=== PATIENT | female | born 1960 | race Caucasian/White ===

== ENCOUNTER 2022-05-25 10:52 | Outpatient (CLI) | payer MEDICARE, MEDICAID, SELFPAY ==
--- NOTE | 2022-06-11 10:25 | URNOTE ---
Request received for authorization for [employer] ([id number]). Prior authorization is not required as services are based on medical necessity and follow Medicare guidelines.
== END 2022-05-25 10:53 | disposition home or self-care (01) ==
LOC: AMB 05-26 00:38
PROVIDERS: PCP Family Medicine; Visit Provider Family Medicine
DX: R53.1 Weakness (principal)
CPT/HCPCS: A0998

== ENCOUNTER 2022-11-06 11:15 | Outpatient (RCR) | payer MEDICARE, MEDICAID, SELFPAY | END 2023-03-06 23:59 | disposition home or self-care (01) | PROVIDERS: PCP Family Medicine; Visit Provider Psychiatry & Neurology Neurology | DX: R26.89 Other abnormalities of gait and mobility (principal); M33.90 Dermatopolymyositis, unspecified, organ involvement unspecified; R53.1 Weakness; Z51.89 Encounter for other specified aftercare | CPT/HCPCS: 97110; 97162 ==

== ENCOUNTER 2022-12-10 11:30 | Outpatient (RCR) | payer MEDICARE, MEDICAID, SELFPAY ==
--- NOTE | 2022-06-11 12:23 | URNOTE ---
Received request for prior auth for [employer] ([id number]). Pt has Medicare primary. Prior authorization is not required as services are based on medical necessity and follow medicare guidelines.
[2022-06-25 10:25] VITALS: BP 137/81; PULSE 95; RESP 16; TEMP 36.6; O2SAT 99
[2022-06-25] MEDS: diphenhydrAMINE 25 MG CAPSULE PO (10:55)
[2022-06-25 13:50] VITALS: BP 148/75; PULSE 88; RESP 20; TEMP 37.2; O2SAT 99
[2022-06-26 10:19] VITALS: BP 153/84; PULSE 90; RESP 18; TEMP 37.3; O2SAT 99
[2022-06-26] MEDS: ACETAMINOPHEN 325 MG TABLET 650 MG PO (11:01)
[2022-06-26] MEDS: diphenhydrAMINE 25 MG CAPSULE PO (11:01)
[2022-06-26] MEDS: 5 % DEXTROSE 250 ML IV (11:01)
[2022-07-22 10:27] VITALS: BP 151/79; PULSE 86; RESP 16; TEMP 37.2; O2SAT 99
[2022-07-22] MEDS: ACETAMINOPHEN 325 MG TABLET 650 MG PO (10:40)
[2022-07-22] MEDS: diphenhydrAMINE 25 MG CAPSULE PO (10:40)
[2022-07-22] MEDS: 5 % DEXTROSE 250 ML IV (10:55)
[2022-07-23 11:07] VITALS: BP 157/83; PULSE 84; RESP 18; TEMP 36.5; O2SAT 99
[2022-07-23] MEDS: ACETAMINOPHEN 325 MG TABLET 650 MG PO (11:20)
[2022-07-23] MEDS: diphenhydrAMINE 25 MG CAPSULE PO (11:20)
[2022-07-23] MEDS: 5 % DEXTROSE 250 ML IV (11:23)
[2022-08-20 11:20] VITALS: BP 152/89; PULSE 85; RESP 16; TEMP 37.3; O2SAT 98
[2022-08-20] MEDS: diphenhydrAMINE 25 MG CAPSULE PO (11:45)
[2022-08-20] MEDS: ACETAMINOPHEN 325 MG TABLET 650 MG PO (11:45)
[2022-08-20] MEDS: 5 % DEXTROSE 250 ML IV (12:38)
[2022-08-21] MEDS: ACETAMINOPHEN 325 MG TABLET 650 MG PO (11:12)
[2022-08-21] MEDS: diphenhydrAMINE 25 MG CAPSULE PO (11:12)
[2022-08-21 11:30] VITALS: BP 142/81; PULSE 93; RESP 16; TEMP 37.1; O2SAT 97
[2022-09-16 11:01] VITALS: BP 161/92; PULSE 84; RESP 16; TEMP 36.6; O2SAT 97
[2022-09-16] MEDS: ACETAMINOPHEN 325 MG TABLET 650 MG PO (11:03)
[2022-09-16] MEDS: diphenhydrAMINE 25 MG CAPSULE PO (11:03)
[2022-09-16] MEDS: 5 % DEXTROSE 250 ML IV (11:03)
--- NOTE | 2022-09-16 12:55 | ONC.NURNOTE ---
After tylenol/benadryl and IV start, patient became nauseated. Denies fever, chills, diarrhea. Ate some saltine crackers and sprite and it resolved prior to the start of IVIG. Patient stated I ate at [employer] last night, i wonder if that had anything to do with it. Continue to monitor.
[2022-09-17 11:03] VITALS: BP 171/89; PULSE 90; RESP 18; TEMP 37.1; O2SAT 97
[2022-09-17] MEDS: ACETAMINOPHEN 325 MG TABLET 650 MG PO (11:15)
[2022-09-17] MEDS: diphenhydrAMINE 25 MG CAPSULE PO (11:16)
--- NOTE | 2022-09-17 13:17 | PC.NURSE ---
Pt present at [facility] for IVIG treatment. RN noted pt's consistently high blood pressure readings. Shala monitors closely at home with the support of her [facility] nurse and PCP. Per pt's request, all BP readings from yesterday and today were jotted down for her to review with her county RN. RN also requested that Shala discuss her blood pressure readings wtih Dr. Zamudio (prescribing MD) when she sees her later this month in follow-up. RN requested treatment parameters as it relates to her blood pressure. Shala verbalized understanding and will have MD fax a written BP treatment parameter to [facility] for her next treatment in October.
--- NOTE | 2022-09-22 14:19 | PC.NURSE ---
Shala called today with an update on her blood pressure management. She spoke with her dressmaking teacher (Dr. Zamudio, ordering MD) who stated that she suggested Shala take her BP meds later in the morning, closer to the time of her infusion. She also suggested that Shala see her PCP to discuss her medication management. Shala will see her PCP on Thursday and will see Dr. Zamudio on 10/01/2022. RN asked Shala to have one or both MD's fax recommendations and treatment guidelines/parameters to [facility] in time for her next infusion. Per Shala, Dr. Zamudio wants her to continue getting IVIG infusions.
[2022-10-14 11:17] VITALS: BP 138/78; PULSE 94; RESP 16; TEMP 37.6; O2SAT 97
[2022-10-14] MEDS: ACETAMINOPHEN 325 MG TABLET 650 MG PO (11:24)
[2022-10-14] MEDS: diphenhydrAMINE 25 MG CAPSULE PO (11:24)
[2022-10-15 11:18] VITALS: BP 135/81; PULSE 96; RESP 16; TEMP 36.3; O2SAT 96
[2022-10-15] MEDS: diphenhydrAMINE 25 MG CAPSULE PO (11:32)
[2022-10-15] MEDS: ACETAMINOPHEN 325 MG TABLET 650 MG PO (11:32)
[2022-11-13 12:14] VITALS: BP 152/82; PULSE 91; RESP 16; TEMP 37.2; O2SAT 97
[2022-11-13] MEDS: ACETAMINOPHEN 325 MG TABLET 650 MG PO (12:31)
[2022-11-13] MEDS: diphenhydrAMINE 25 MG CAPSULE PO (12:31)
[2022-11-13] MEDS: 5 % DEXTROSE 250 ML IV (15:58)
[2022-11-14 12:05] VITALS: BP 122/76; PULSE 88; RESP 16; TEMP 37.6; O2SAT 98
[2022-11-14] MEDS: diphenhydrAMINE 25 MG CAPSULE PO (12:15)
[2022-11-14] MEDS: ACETAMINOPHEN 325 MG TABLET 650 MG PO (12:15)
[2022-12-09] MEDS: ACETAMINOPHEN 325 MG TABLET 650 MG PO (12:14)
[2022-12-09] MEDS: diphenhydrAMINE 25 MG CAPSULE PO (12:14)
[2022-12-09 12:16] VITALS: BP 137/76; PULSE 99; RESP 16; TEMP 37; O2SAT 95
[2022-12-10 12:01] VITALS: BP 127/76; PULSE 94; RESP 16; TEMP 36.7; O2SAT 97
[2022-12-10] MEDS: 5 % DEXTROSE 250 ML IV (12:06)
[2022-12-10] MEDS: ACETAMINOPHEN 325 MG TABLET 650 MG PO (12:06)
[2022-12-10] MEDS: diphenhydrAMINE 25 MG CAPSULE PO (12:06)
== END 2022-12-22 23:59 | disposition home or self-care (01) ==
LOC: CCIC 11:30
PROVIDERS: PCP Family Medicine; Referring Provider Family Medicine; Visit Provider Clinical Nurse Specialist
DX: M33.90 Dermatopolymyositis, unspecified, organ involvement unspecified (principal)
CPT/HCPCS: 96365; 96366; 96413; 96415; A9270; J1569; J7050

== ENCOUNTER 2023-07-01 11:00 | Outpatient (RCR) | payer MEDICARE, MEDICAID, SELFPAY ==
[2023-01-06] MEDS: diphenhydrAMINE 25 MG CAPSULE PO (11:13)
[2023-01-06] MEDS: ACETAMINOPHEN 325 MG TABLET 650 MG PO (11:13)
[2023-01-06 11:30] VITALS: BP 133/80; PULSE 86; RESP 16; TEMP 36.1; O2SAT 96
[2023-01-06] MEDS: 5 % DEXTROSE 250 ML IV (12:11)
[2023-01-06] MEDS: SODIUM CHLORIDE 0.9 % (FLUSH) 10 ML SYRINGE IVF (12:11)
[2023-01-06 15:55] VITALS: BP 112/81; PULSE 57
[2023-01-07 11:00] VITALS: BP 134/80; PULSE 86; RESP 18; TEMP 36.1; O2SAT 98
[2023-02-02 10:55] VITALS: BP 150/81; PULSE 91; RESP 16; TEMP 37.6; O2SAT 97
[2023-02-02] MEDS: 5 % DEXTROSE 250 ML IV (12:00)
[2023-02-02] MEDS: SODIUM CHLORIDE 0.9 % (FLUSH) 10 ML SYRINGE IVF (14:00)
[2023-02-02] MEDS: ACETAMINOPHEN 325 MG TABLET 650 MG PO (15:43)
[2023-02-02] MEDS: diphenhydrAMINE 25 MG CAPSULE PO (15:44)
[2023-02-03 11:04] VITALS: BP 152/79; PULSE 78; RESP 16; TEMP 37.1; O2SAT 98
[2023-02-03] MEDS: ACETAMINOPHEN 325 MG TABLET 650 MG PO (11:12)
[2023-02-03] MEDS: diphenhydrAMINE 25 MG CAPSULE PO (11:13)
[2023-02-03 11:44] VITALS: BP 102/71; PULSE 70; RESP 14; TEMP 36.7; O2SAT 97
[2023-02-03] MEDS: 5 % DEXTROSE 250 ML IV (12:01)
[2023-03-03 11:14] VITALS: BP 145/82; PULSE 79; RESP 16; TEMP 36.4; O2SAT 99
[2023-03-03] MEDS: diphenhydrAMINE 25 MG CAPSULE PO (11:19)
[2023-03-03] MEDS: ACETAMINOPHEN 325 MG TABLET 650 MG PO (11:19)
[2023-03-03] MEDS: 5 % DEXTROSE 250 ML IV (11:50)
[2023-03-03 12:27] VITALS: BP 145/84; PULSE 66; RESP 16; TEMP 36.4; O2SAT 98
[2023-03-04 10:50] VITALS: BP 151/81; PULSE 84; RESP 18; TEMP 37.3; O2SAT 98
[2023-03-04] MEDS: ACETAMINOPHEN 325 MG TABLET 650 MG PO (11:13)
[2023-03-04] MEDS: diphenhydrAMINE 25 MG CAPSULE PO (11:13)
[2023-03-31 10:54] VITALS: BP 128/85; PULSE 90; RESP 16; TEMP 37.3; O2SAT 99
[2023-03-31] MEDS: SODIUM CHLORIDE 0.9 % (FLUSH) 10 ML SYRINGE IVF (11:25)
[2023-03-31] MEDS: diphenhydrAMINE 25 MG CAPSULE PO (11:49)
[2023-03-31] MEDS: ACETAMINOPHEN 325 MG TABLET 650 MG PO (11:49)
[2023-03-31] MEDS: 5 % DEXTROSE 250 ML IV (11:49)
[2023-04-01] MEDS: ACETAMINOPHEN 325 MG TABLET 650 MG PO (11:08)
[2023-04-01] MEDS: diphenhydrAMINE 25 MG CAPSULE PO (11:08)
[2023-04-01 11:18] VITALS: BP 133/87; PULSE 90; RESP 16; TEMP 36.9; O2SAT 98
[2023-04-01] MEDS: 5 % DEXTROSE 250 ML IV (12:05)
[2023-04-27 10:57] VITALS: BP 156/83; PULSE 88; RESP 16; TEMP 37.1; O2SAT 98
[2023-04-27] MEDS: diphenhydrAMINE 25 MG CAPSULE PO (11:05)
[2023-04-27] MEDS: ACETAMINOPHEN 325 MG TABLET 650 MG PO (11:05)
[2023-04-27] MEDS: SODIUM CHLORIDE 0.9 % (FLUSH) 10 ML SYRINGE IVF (11:52)
[2023-04-27] MEDS: 5 % DEXTROSE 250 ML IV (11:52)
[2023-04-28] MEDS: ACETAMINOPHEN 325 MG TABLET 650 MG PO (11:00)
[2023-04-28] MEDS: diphenhydrAMINE 25 MG CAPSULE PO ×2 (11:00)
[2023-04-28] MEDS: 5 % DEXTROSE 250 ML IV (11:41)
[2023-04-28] MEDS: SODIUM CHLORIDE 0.9 % (FLUSH) 10 ML SYRINGE IVF (11:41)
[2023-05-26] MEDS: diphenhydrAMINE 25 MG CAPSULE PO (11:00)
[2023-05-26] MEDS: ACETAMINOPHEN 325 MG TABLET 650 MG PO (11:00)
[2023-05-26] MEDS: 5 % DEXTROSE 250 ML IV (11:45)
[2023-05-27] MEDS: ACETAMINOPHEN 325 MG TABLET 650 MG PO (11:05)
[2023-05-27 11:06] VITALS: BP 125/82; PULSE 82; RESP 16; TEMP 37.2; O2SAT 99
[2023-05-27] MEDS: diphenhydrAMINE 25 MG CAPSULE PO (11:06)
[2023-05-27] MEDS: SODIUM CHLORIDE 0.9 % (FLUSH) 10 ML SYRINGE IVF (11:38)
[2023-05-27] MEDS: 5 % DEXTROSE 250 ML IV (11:38)
--- NOTE | 2023-06-22 12:36 | URNOTE ---
Received request for prior auth for [employer] ([id number]). Pt has Medicare primary. Prior authorization is not required as services are based on medical necessity and follow medicare guidelines.
[2023-06-30 11:12] VITALS: BP 132/78; PULSE 91; RESP 16; TEMP 37.5; O2SAT 98
[2023-06-30] MEDS: diphenhydrAMINE 25 MG CAPSULE PO (11:25)
[2023-06-30] MEDS: ACETAMINOPHEN 325 MG TABLET 650 MG PO (11:25)
[2023-06-30] MEDS: 5 % DEXTROSE 250 ML IV (11:30)
[2023-06-30] MEDS: SODIUM CHLORIDE 0.9 % (FLUSH) 10 ML SYRINGE IVF (11:30)
[2023-07-01 11:01] VITALS: BP 146/86; PULSE 84; RESP 18; TEMP 36.5; O2SAT 99
[2023-07-01] MEDS: diphenhydrAMINE 25 MG CAPSULE PO (11:15)
[2023-07-01] MEDS: ACETAMINOPHEN 325 MG TABLET 650 MG PO (11:15)
== END 2023-07-05 23:59 | disposition home or self-care (01) ==
LOC: CCIC 11:00
PROVIDERS: PCP Family Medicine; Referring Provider Family Medicine; Visit Provider Clinical Nurse Specialist
DX: M33.90 Dermatopolymyositis, unspecified, organ involvement unspecified (principal)
CPT/HCPCS: 96365; 96366; 96413; 96415; A9270; J1569; J7050

== ENCOUNTER 2023-12-23 11:00 | Outpatient (RCR) | payer MEDICARE, MEDICAID, SELFPAY ==
[2023-07-29 11:13] VITALS: BP 115/78; PULSE 96; RESP 16; TEMP 35.8; O2SAT 100
[2023-07-29] MEDS: diphenhydrAMINE 25 MG CAPSULE PO (11:17)
[2023-07-29] MEDS: ACETAMINOPHEN 325 MG TABLET 650 MG PO (11:17)
[2023-07-30 11:06] VITALS: BP 131/77; PULSE 82; RESP 16; TEMP 36; O2SAT 100
[2023-07-30] MEDS: ACETAMINOPHEN 325 MG TABLET 650 MG PO (11:30)
[2023-07-30] MEDS: diphenhydrAMINE 25 MG CAPSULE PO (11:31)
[2023-07-30] MEDS: 5 % DEXTROSE 250 ML IV (11:31)
[2023-08-26 11:04] VITALS: BP 113/77; PULSE 82; RESP 16; TEMP 36.9; O2SAT 99
[2023-08-26] MEDS: ACETAMINOPHEN 325 MG TABLET 650 MG PO (11:16)
[2023-08-26] MEDS: diphenhydrAMINE 25 MG CAPSULE PO (11:16)
[2023-08-26] MEDS: 5 % DEXTROSE 250 ML IV (11:24)
[2023-08-26] MEDS: SODIUM CHLORIDE 0.9 % (FLUSH) 10 ML SYRINGE IVF (14:47)
[2023-08-27] MEDS: diphenhydrAMINE 25 MG CAPSULE PO (11:10)
[2023-08-27] MEDS: ACETAMINOPHEN 325 MG TABLET 650 MG PO (11:10)
[2023-08-27] MEDS: 5 % DEXTROSE 250 ML IV (11:15)
--- NOTE | 2023-09-23 11:41 | ONC.NURNOTE ---
Pt called to cancel appt for IVIG today due to having an emesis this morning. Pt will call back later today to let us know if she feels better and will be coming in tomorrow.
[2023-09-29] MEDS: 5 % DEXTROSE 250 ML IV (11:17)
[2023-09-29] MEDS: ACETAMINOPHEN 325 MG TABLET 650 MG PO (11:17)
[2023-09-29] MEDS: diphenhydrAMINE 25 MG CAPSULE PO (11:17)
[2023-09-29 11:34] VITALS: BP 118/80; PULSE 95; RESP 16; TEMP 36.1; O2SAT 98
[2023-09-30 11:11] VITALS: BP 125/82; PULSE 92; RESP 16; TEMP 35.9; O2SAT 96
[2023-09-30] MEDS: ACETAMINOPHEN 325 MG TABLET 650 MG PO (11:13)
[2023-09-30] MEDS: diphenhydrAMINE 25 MG CAPSULE PO (11:14)
[2023-09-30] MEDS: 5 % DEXTROSE 250 ML IV (11:52)
[2023-10-27 11:33] VITALS: BP 120/75; PULSE 86; RESP 14; TEMP 36.6; O2SAT 100
[2023-10-27] MEDS: diphenhydrAMINE 25 MG CAPSULE PO (11:45)
[2023-10-27] MEDS: ACETAMINOPHEN 325 MG TABLET 650 MG PO (11:46)
[2023-10-27] MEDS: SODIUM CHLORIDE 0.9 % (FLUSH) 10 ML SYRINGE IVF ×2 (11:59→15:35)
[2023-10-27] MEDS: 5 % DEXTROSE 250 ML IV (12:01)
[2023-10-28 11:12] VITALS: BP 119/80; PULSE 74; RESP 16; TEMP 36.4; O2SAT 98
[2023-10-28] MEDS: ACETAMINOPHEN 325 MG TABLET 650 MG PO (11:26)
[2023-10-28] MEDS: diphenhydrAMINE 25 MG CAPSULE PO (11:27)
[2023-11-24] MEDS: diphenhydrAMINE 25 MG CAPSULE PO (11:16)
[2023-11-24] MEDS: ACETAMINOPHEN 325 MG TABLET 650 MG PO (11:16)
[2023-11-24 11:18] VITALS: BP 129/75; PULSE 75; RESP 16; TEMP 36.1; O2SAT 98
[2023-11-24] MEDS: SODIUM CHLORIDE 0.9 % (FLUSH) 10 ML SYRINGE IVF (12:01)
[2023-11-24] MEDS: 5 % DEXTROSE 250 ML IV (12:01)
[2023-11-25 11:17] VITALS: BP 145/75; PULSE 68; RESP 16; TEMP 36.2; O2SAT 99
[2023-11-25] MEDS: diphenhydrAMINE 25 MG CAPSULE PO (11:21)
[2023-11-25] MEDS: ACETAMINOPHEN 325 MG TABLET 650 MG PO (11:21)
[2023-11-25] MEDS: 5 % DEXTROSE 250 ML IV (11:52)
[2023-11-25] MEDS: SODIUM CHLORIDE 0.9 % (FLUSH) 10 ML SYRINGE IVF (12:37)
[2023-12-22] MEDS: SODIUM CHLORIDE 0.9 % (FLUSH) 10 ML SYRINGE IVF (11:11)
[2023-12-22] MEDS: ACETAMINOPHEN 325 MG TABLET 650 MG PO (11:11)
[2023-12-22] MEDS: diphenhydrAMINE 25 MG CAPSULE PO (11:11)
[2023-12-22] MEDS: 5 % DEXTROSE 250 ML IV (11:11)
[2023-12-22 11:15] VITALS: BP 167/73; PULSE 77; RESP 16; TEMP 36.4; O2SAT 98
[2023-12-23 11:06] VITALS: BP 154/87; PULSE 80; RESP 16; TEMP 36; O2SAT 98
[2023-12-23] MEDS: diphenhydrAMINE 25 MG CAPSULE PO (11:18)
[2023-12-23] MEDS: ACETAMINOPHEN 325 MG TABLET 650 MG PO (11:18)
[2023-12-23] MEDS: SODIUM CHLORIDE 0.9 % (FLUSH) 10 ML SYRINGE IVF (11:35)
[2023-12-23] MEDS: 5 % DEXTROSE 250 ML IV (11:36)
--- NOTE | 2024-01-07 13:37 | URNOTE ---
Prior authorization is not required for Leo ([id number]).Services are based on medical necessity and follow medicare guidelines
== END 2024-01-25 23:59 | disposition home or self-care (01) ==
LOC: CCIC 11:00
PROVIDERS: PCP Family Medicine; Referring Provider Family Medicine; Visit Provider Clinical Nurse Specialist
DX: M33.90 Dermatopolymyositis, unspecified, organ involvement unspecified (principal)
CPT/HCPCS: 96365; 96366; 96413; 96415; A9270; J1569; J7050

== ENCOUNTER 2024-04-09 19:41 | Outpatient (CLI) | payer MEDICARE, MEDICAID, SELFPAY | END 2024-04-09 19:42 | disposition home or self-care (01) | LOC: AMB 04-10 04:07 | PROVIDERS: PCP Family Medicine; Visit Provider Emergency Medicine Emergency Medical Services | DX: S39.92XA Unspecified injury of lower back, initial encounter (principal); W18.30XA Fall on same level, unspecified, initial encounter; Y93.9 Activity, unspecified; Y92.000 Kitchen of unspecified non-institutional (private) residence as the place of occurrence of the external cause | CPT/HCPCS: A0425; A0429 ==

== ENCOUNTER 2024-04-09 20:11 | Emergency (ER) | payer MEDICARE, MEDICAID, SELFPAY ==
[2024-04-09 20:18] VITALS: BP 171/105; PULSE 99; RESP 16; TEMP 36.5; O2SAT 98; BMI 25.8
--- NOTE | 2024-04-09 20:31 | ED.GENADULT ---
HPI - General Adult General Chief complaint: Fall/Minor Trauma Stated complaint: fall Time Seen by Provider: 04/09/24 20:41 History of Present Illness HPI narrative: pt fell to the floor, legs got week when getting something to drink from the refrigerator. Pt reports back pain 10/18. Pain is dull and ackey. Pt did not hit head, no neck pain. 63-year-old woman presenting to the emergency department after a fall. Went with her walker as usual to the kitchen and went to get a drink out of the Fridge. It somehow dropped and she slipped back landing on her back. Did not hit her head. She has fallen before and tried to use the handle of the Fridge to lift herself up but could not and ultimately crawled to the carpeted living room where she thought she might be able to get up but by that point was too weak to get up and called for EMS. Was in usual state of health prior to this fall. Does have balance problems. I asked her about a compression fracture seeing this in past medical but she denies this. Denies a history of back pain. Related Data Home Medications ?Medication ?Instructions ?Recorded ?Confirmed aspirin 81 mg tablet,delayed 81 mg PO DAILY 06/11/22 02/18/24 release betamethasone dipropionate 0.05 % 1 applic topical Q12H 06/11/22 02/18/24 lotion cetirizine 10 mg tablet 10 mg PO DAILY 06/11/22 02/18/24 empagliflozin 25 mg tablet 25 mg PO DAILY 06/11/22 02/18/24 (Jardiance) ergocalciferol (vitamin D2) 1,250 50,000 unit PO DAILY 06/11/22 02/18/24 mcg (50,000 unit) capsule ferrous gluconate 324 mg (38 mg 324 mg PO DAILY 06/11/22 02/18/24 iron) tablet gabapentin 100 mg capsule 100 mg PO Q12H 06/11/22 02/18/24 hydrocortisone 2.5 % topical 1 applic topical BID 06/11/22 02/18/24 ointment levothyroxine 75 mcg tablet 75 mcg PO DAILY 06/11/22 02/18/24 lisinopril 40 mg tablet 40 mg PO DAILY 06/11/22 02/18/24 metformin 500 mg tablet 500 mg PO BID 06/11/22 02/18/24 pravastatin 80 mg tablet 80 mg PO DAILY 06/11/22 02/18/24 sennosides 8.6 mg tablet (senna) 8.6 mg PO BID PRN 06/11/22 02/18/24 tacrolimus 0.1 % topical ointment 1 applic topical BID 06/11/22 02/18/24 triamcinolone acetonide 0.1 % 1 applic topical TID PRN 06/11/22 02/18/24 topical ointment amlodipine 2.5 mg tablet 2.5 mg PO DAILY 10/14/22 02/18/24 glipizide 10 mg tablet, extended 20 mg PO DAILY 07/29/23 02/18/24 release 24 hr famotidine 20 mg tablet 20 mg PO BID 09/29/23 02/18/24 acetaminophen 500 mg tablet 500 mg PO Q6H PRN 10/27/23 02/18/24 diphenhydramine-zinc acetate 2 1 applic topical TID PRN 10/27/23 02/18/24 %-0.1 % topical cream (Benadryl Extra Strength) white petrolatum 41 % topical 1 applic topical BID-TID PRN 10/27/23 02/18/24 ointment (Aquaphor Healing) hydroxychloroquine 200 mg tablet 200 mg PO BID 02/18/24 02/18/24 (Plaquenil) Allergies Allergy/AdvReac Type Severity Reaction Status Date / Time Sulfa (Sulfonamide Allergy Severe Hives Verified 04/19/24 11:11 Antibiotics) sulfasalazine Allergy Severe Hives Verified 04/19/24 11:11 atenolol Allergy Intermediate Rash Verified 04/19/24 11:11 ferrous sulfate Allergy Intermediate Rash Verified 04/19/24 11:11 simvastatin Allergy Mild Diarrhea Verified 04/19/24 11:11 methotrexate Allergy Unknown Verified 04/19/24 11:11 hydrochlorothiazide AdvReac Intermediate Unknown Verified 04/19/24 11:11 Review of Systems Status of ROS: Reports: 6 or more systems reviewed and unremarkable except as noted in History and below [facility] Medical History History of abnormal cervical Pap smear ?Z87.42 - Personal history of other diseases of the female genital tract (ICD-10) History of adenomatous polyp of colon ?Z86.010 - Personal history of colonic polyps (ICD-10) History of vitamin D deficiency ?Z86.39 - Personal history of other endocrine, nutritional and metabolic disease (ICD-10) Surgical History History of D&C (10/17/21) ?Z98.890 - Other specified postprocedural states (ICD-10) History of radioactive iodine thyroid ablation ?Z92.3 - Personal history of irradiation (ICD-10) History of ankle surgery ?Z98.890 - Other specified postprocedural states (ICD-10) History of arthroscopy of left knee (10/29/04) ?Z98.890 - Other specified postprocedural states (ICD-10) Family History Brother Coronary artery disease Mother Diabetes High blood pressure Thyroid disease Macular degeneration Social History Narrative: Single, lives at [facility]. Not a Physical activity type: walking How many days of moderate to strenuous exercise, like a brisk walk, did you do in the last 7 days: 4 Smoking Status: Never smoker How often do you have a drink containing alcohol: never AUDIT-C Alcohol total score: 0 Non-prescribed substance use: denies use Do you think of yourself as: straight/heterosexual Gender Identity: female Are you currently sexually active: No Exam Narrative: Exam Narrative: Pleasant. Appears of good energy. Cranial nerves 2-12 intact. Pupils are brisk and equal. Head is atraumatic. Neck is nontender. Tenderness over about L1 of the spine. Raises legs without notable difficulty. No edema. A 2/6 systolic murmur loudest at the right sternal border. Abdomen is soft and nontender. Const: Vital Signs, click to edit/add: Vital Signs - 24 hr 04/09/24 20:18 Temperature 97.7 F Pulse Rate [Right Pulse Oximeter] 99 Respiratory Rate 16 Blood Pressure [Ri ght Upper Arm] 171/105 H Pulse Oximetry 98 Oxygen Delivery Me thod Room Air Documenting provider has reviewed patient's vital signs: yes Course Vital Signs Vital signs: Initial Vital Signs Temperature 97.7 F 04/09/24 20:18 Temperature Source Temporal Artery Scan 04/09/24 20:18 Pulse Rate 99 04/09/24 20:18 Pulse Rhythm Regular 04/09/24 20:18 Respiratory Rate 16 04/09/24 20:18 Blood Pressure 171/105 H 04/09/24 20:18 Blood Pressure Mean 127 H 04/09/24 20:18 Blood Pressure Position Semi-Fowlers 04/09/24 20:18 Pulse Oximetry 98 04/09/24 20:18 Oxygen Delivery Method Room Air 04/09/24 20:18 Vital Signs Temperature 97.7 F 04/09/24 20:18 Pulse Rate 99 04/09/24 20:18 Respiratory Rate 16 04/09/24 20:18 Blood Pressure 171/105 H 04/09/24 20:18 Pulse Oximetry 98 04/09/24 20:18 Oxygen Delivery Method Room Air 04/09/24 20:18 Temperature 97.7 F 04/09/24 20:18 Pulse Rate 99 04/09/24 20:18 Respiratory Rate 16 04/09/24 20:18 Blood Pressure 171/105 H 04/09/24 20:18 Pulse Oximetry 98 04/09/24 20:18 Oxygen Delivery Method Room Air 04/09/24 20:18 Medications Administered Medications: Discontinued Medications Generic Name Dose Route Start Last Admin Trade Name Phoebe PRN Reason Stop Dose Admin Acetaminophen 1,000 mg 04/09/24 20:40 04/09/24 20:47 Acetaminophen 500 Mg Tablet PO 04/09/24 20:41 1,000 mg ONCE ONE Administration Medical Decision Making [facility] Narrative Medical decision making narrative: When asked about pain medications she says that she usually takes acetaminophen. That is her preference. This appears to have been a slip and fall type event in usual degree of health; prone to falls. Living independently. Only injury appears to have been to the lumbar spine Lumbar spine x-ray independently reviewed by me shows osteoarthritic changes and disc space narrowing. Radiology over-read below TECHNIQUE: Lumbar spine 3 views. COMPARISON: None. FINDINGS: Bones: Slight levoconvex curvature of the lumbar spine. Grade 1 anterolisthesis L5 on S1. Mild to moderate T12 and mild L1 anterior wedge compression deformities, age indeterminate. Joints: Multilevel disc degeneration, most prominent at L5-S1 with severe disc space narrowing. Moderate lower lumbar facet arthropathy. Soft tissues: Scattered bilateral dystrophic calcifications, nonspecific. Overall well and able to mobilize to usual level while in the emergency department. Reports improved with acetaminophen. See patient discharge plan for further discussion Medical Records Medical records reviewed: Yes I reviewed the patient's medical records Discharge Plan Discharge Clinical Impression: Low back pain, Compression fracture, Fall Patient Disposition: Home w/ Parent or Adult Condition: Improved Additional Instructions: Continue to take care in transitions. Can take acetaminophen as before. It appears that there are some ?mild to moderate...anterior wedge compression deformities at the level of T12 and L1 in your spine. These may have been present before and exacerbated in tonight's fall or the pain simply may have been exacerbated. These are ?age indeterminate?. Pleasure to meet you. Prescriptions: No Action hydroxychloroquine [Plaquenil] 200 mg tablet 200 mg PO BID aspirin 81 mg tablet,delayed release (DR/EC) 81 mg PO DAILY Patient Comments: TAKE ONE TABLET BY MOUTH ONCE DAILY WITH A MEAL betamethasone dipropionate 0.05 % lotion 1 applic TOPICAL Q12H Patient Comments: APPLY SPARINGLY TWICE A DAY cetirizine 10 mg tablet 10 mg PO DAILY Patient Comments: TAKE ONE TABLET BY MOUTH ONCE DAILY Jardiance 25 mg tablet 25 mg PO DAILY Patient Comments: TAKE ONE TABLET BY MOUTH ONCE DAILY ergocalciferol (vitamin D2) 1,250 mcg (50,000 unit) capsule 50,000 unit PO DAILY ferrous gluconate 324 mg (38 mg iron) tablet 324 mg PO DAILY Patient Comments: TAKE 1 TABLET BY MOUTH ONCE DAILY WITH A MEAL. gabapentin 100 mg capsule 100 mg PO Q12H Patient Comments: TAKE ONE CAPSULE BY MOUTH IN THE MORNING AND AT NOON,2-3 CAPSULES IN THE EVENING hydrocortisone 2.5 % ointment 1 applic TOPICAL BID Patient Comments: APPLY 1 APPLICATION TOPICALLY 2 (TWO) TIMES A DAY. APPLY TO FACE, RASH LOCATED UNDER ARMPITS, GROIN REGION. levothyroxine 75 mcg tablet 75 mcg PO DAILY Patient Comments: TAKE ONE TABLET BY MOUTH ONCE DAILY lisinopril 40 mg tablet 40 mg PO DAILY Patient Comments: TAKE ONE TABLET BY MOUTH ONCE DAILY metformin 500 mg tablet 500 mg PO BID Patient Comments: TAKE TWO TABLETS BY MOUTH TWICE A DAY WITH MEALS pravastatin 80 mg tablet 80 mg PO DAILY Patient Comments: TAKE 1 TABLET (80 MG) BY MOUTH AT BEDTIME. sennosides [senna] 8.6 mg tablet 8.6 mg PO BID PRN Patient Comments: TAKE ONE TABLET BY MOUTH TWICE A DAY NEEDED FOR CONSTIPATION tacrolimus 0.1 % ointment 1 applic TOPICAL BID Patient Comments: APPLY TOPICALLY TWO TIMES A DAY. triamcinolone acetonide 0.1 % ointment 1 applic TOPICAL TID PRN Patient Comments: APPLY 1 APPLICATION TOPICALLY 2 (TWO) TIMES A DAY. APPLY TO AREAS OF RASH. amlodipine 2.5 mg tablet 2.5 mg PO DAILY glipizide 10 mg tablet extended release 24hr 20 mg PO DAILY famotidine 20 mg tablet 20 mg PO BID acetaminophen 500 mg tablet 500 mg PO Q6H PRN Aquaphor Healing 41 % ointment 1 applic topical BID-TID PRN Benadryl Extra Strength 2-0.1 % cream 1 applic topical TID PRN Follow Up/Referrals: Sandi Nunes MD [Primary Care Provider] - Stand Alone Forms: [facility] Info Instructions
--- NOTE | 2024-04-09 20:40 | CRLHL7_ITS ---
For Patients: As a result of the Century Cures Act, medical imaging exams and procedure reports are released immediately into your electronic medical record. You may view this report before your referring provider. If you have questions, please contact your health care provider. INDICATION: Back pain. TECHNIQUE: Lumbar spine 3 views. COMPARISON: None. FINDINGS: Bones: Slight levoconvex curvature of the lumbar spine. Grade 1 anterolisthesis L5 on S1. Mild to moderate T12 and mild L1 anterior wedge compression deformities, age indeterminate. Joints: Multilevel disc degeneration, most prominent at L5-S1 with severe disc space narrowing. Moderate lower lumbar facet arthropathy. Soft tissues: Scattered bilateral dystrophic calcifications, nonspecific. Dictated by Anthony Miguel MD @ 04/09/2024 9:50:01 PM (Electronically Signed)
[2024-04-09] MEDS: ACETAMINOPHEN 500 MG TABLET 1000 MG PO (20:47)
--- NOTE | 2024-04-09 21:31 | ED.NURSE ---
pt back from RAD. Pain feeling better per pt.
== END 2024-04-09 22:15 | disposition home or self-care (01) ==
PROVIDERS: Emergency Provider Family Medicine; PCP Family Medicine
DX: M54.50 Low back pain, unspecified (principal); S22.080A Wedge compression fracture of T11-T12 vertebra, initial encounter for closed fracture; S32.010A Wedge compression fracture of first lumbar vertebra, initial encounter for closed fracture; W18.30XA Fall on same level, unspecified, initial encounter
CPT/HCPCS: 72100; 99283; 99284; A9270

== ENCOUNTER 2024-05-05 09:56 | Outpatient (CLI) | payer MEDICARE, MEDICAID, SELFPAY | END 2024-05-05 09:57 | disposition home or self-care (01) | LOC: AMB 05-07 14:44 | PROVIDERS: PCP Family Medicine; Visit Provider Student in an Organized Health Care Education/Training Program | DX: R53.1 Weakness (principal) | CPT/HCPCS: A0998 ==

== ENCOUNTER 2024-08-10 10:30 | Outpatient (RCR) | payer MEDICARE, MEDICAID, SELFPAY ==
[2024-02-18 11:06] VITALS: BP 147/73; PULSE 91; RESP 18; TEMP 37.1; O2SAT 98
[2024-02-18] MEDS: ACETAMINOPHEN 325 MG TABLET 650 MG PO (11:15)
[2024-02-18] MEDS: diphenhydrAMINE 25 MG CAPSULE PO (11:15)
[2024-02-18] MEDS: SODIUM CHLORIDE 0.9 % (FLUSH) 10 ML SYRINGE IVF (15:00)
[2024-02-19 11:15] VITALS: BP 118/78; PULSE 90; RESP 18; TEMP 36.4; O2SAT 99
[2024-02-19] MEDS: ACETAMINOPHEN 325 MG TABLET 650 MG PO (11:27)
[2024-02-19] MEDS: diphenhydrAMINE 25 MG CAPSULE PO (11:28)
[2024-02-19] MEDS: SODIUM CHLORIDE 0.9 % (FLUSH) 10 ML SYRINGE IVF (11:28)
[2024-02-19] MEDS: 5 % DEXTROSE 250 ML IV (11:55)
[2024-04-19 11:10] VITALS: BP 162/69; PULSE 83; RESP 16; TEMP 36.8; O2SAT 98
[2024-04-19] MEDS: diphenhydrAMINE 25 MG CAPSULE PO (11:23)
[2024-04-19] MEDS: ACETAMINOPHEN 325 MG TABLET 650 MG PO (11:23)
[2024-04-19] MEDS: SODIUM CHLORIDE 0.9 % (FLUSH) 10 ML SYRINGE IVF (11:29)
[2024-04-19 11:31] VITALS: BP 144/84
[2024-04-20 11:20] VITALS: TEMP 36.6
[2024-04-20] MEDS: ACETAMINOPHEN 325 MG TABLET 650 MG PO (11:20)
[2024-04-20] MEDS: diphenhydrAMINE 25 MG CAPSULE PO (11:20)
[2024-04-20] MEDS: SODIUM CHLORIDE 0.9 % (FLUSH) 10 ML SYRINGE IVF (11:20)
[2024-06-14 10:52] VITALS: BP 128/82; PULSE 89; RESP 15; TEMP 36.6; O2SAT 100
[2024-06-14] MEDS: ACETAMINOPHEN 325 MG TABLET 650 MG PO (11:06)
[2024-06-14] MEDS: diphenhydrAMINE 25 MG CAPSULE PO (11:06)
[2024-06-14] MEDS: INTRAVIA CONTAINER IVPB (11:41)
[2024-06-14] MEDS: GAMMAGARD IVPB (11:41)
[2024-06-15 11:05] VITALS: BP 113/72; PULSE 85; RESP 18; TEMP 36.4; O2SAT 98
[2024-06-15] MEDS: diphenhydrAMINE 25 MG CAPSULE PO (11:14)
[2024-06-15] MEDS: ACETAMINOPHEN 325 MG TABLET 650 MG PO (11:14)
[2024-06-15] MEDS: INTRAVIA CONTAINER IVPB (11:57)
[2024-06-15] MEDS: GAMMAGARD IVPB (11:57)
[2024-08-09 10:43] VITALS: BP 130/85; PULSE 101; RESP 19; TEMP 36.3; O2SAT 100
[2024-08-09] MEDS: ACETAMINOPHEN 325 MG TABLET 650 MG PO (11:14)
[2024-08-09] MEDS: diphenhydrAMINE 25 MG CAPSULE PO (11:14)
[2024-08-09] MEDS: SODIUM CHLORIDE 0.9 % (FLUSH) 10 ML SYRINGE IVF (11:31)
[2024-08-09] MEDS: GAMMAGARD IVPB (11:50)
[2024-08-09] MEDS: INTRAVIA CONTAINER IVPB (11:50)
[2024-08-09] MEDS: 5 % DEXTROSE 250 ML IV (11:55)
[2024-08-10 10:53] VITALS: BP 135/82; PULSE 87; RESP 18; TEMP 36.8; O2SAT 100
[2024-08-10] MEDS: ACETAMINOPHEN 325 MG TABLET 650 MG PO (11:08)
[2024-08-10] MEDS: diphenhydrAMINE 25 MG CAPSULE PO (11:08)
[2024-08-10] MEDS: SODIUM CHLORIDE 0.9 % (FLUSH) 10 ML SYRINGE IVF ×2 (11:45→14:36)
[2024-08-10] MEDS: INTRAVIA CONTAINER IVPB (11:48)
[2024-08-10] MEDS: GAMMAGARD IVPB (11:48)
== END 2024-08-16 23:59 | disposition home or self-care (01) ==
LOC: CCIC 10:30
PROVIDERS: PCP Family Medicine; Referring Provider Family Medicine; Visit Provider Clinical Nurse Specialist
DX: M33.90 Dermatopolymyositis, unspecified, organ involvement unspecified (principal)
CPT/HCPCS: 96365; 96366; A9270; J1569; J7050

== ENCOUNTER 2024-09-07 08:56 | Outpatient (CLI) | payer MEDICARE, MEDICAID, SELFPAY ==
--- NOTE | 2024-09-07 10:05 | P.ANES_ITS ---
Anesthesia Charges Start Date/Time Anesthesia Start Date: 09/07/24 Anesthesia Start Time: 09:32 Stop Date/Time Anesthesia Stop Date: 09/07/24 Anesthesia Stop Time: 10:05 Coding CPT Codes CPT Codes: ANES LWR INTST NDSC NOS - 34873 ([id number]) P3 - PATIENT W/SEVERE SYS DISEASE, QX - HELPER ANIMAL LABORATORY SVC W/ MD MED DIRECTION, QK - SCRUM COACH 2-4 CNCRNT ANES PROC
--- NOTE | 2024-09-07 10:05 | W.ANESCHARGE ---
Anesthesia Charges Start Date/Time Anesthesia Start Date: 09/07/24 Anesthesia Start Time: 09:32 Stop Date/Time Anesthesia Stop Date: 09/07/24 Anesthesia Stop Time: 10:05 Coding CPT Codes CPT Codes: ANES LWR INTST NDSC NOS - 08737 ([id number]) P3 - PATIENT W/SEVERE SYS DISEASE, QX - TRIP RIDER SVC W/ MD MED DIRECTION, QK - GRINDING AND POLISHING LABORER 2-4 CNCRNT ANES PROC
--- NOTE | 2024-09-07 11:23 | P.ANES_ITS ---
Anesthesia Charges Start Date/Time Anesthesia Start Date: 09/07/24 Anesthesia Start Time: 09:32 Stop Date/Time Anesthesia Stop Date: 09/07/24 Anesthesia Stop Time: 10:05 Coding CPT Codes CPT Codes: ANES LWR INTST NDSC NOS - 92706 ([id number]) QK - TITLE 1 TUTOR 2-4 CNCRNT ANES PROC, QX - PUBLICATION SPECIALIST SVC W/ MED DIRECTION, P3 - PATIENT W/SEVERE SYS DISEASE
--- NOTE | 2024-09-07 11:23 | W.ANESCHARGE ---
Anesthesia Charges Start Date/Time Anesthesia Start Date: 09/07/24 Anesthesia Start Time: 09:32 Stop Date/Time Anesthesia Stop Date: 09/07/24 Anesthesia Stop Time: 10:05 Coding CPT Codes CPT Codes: ANES LWR INTST NDSC NOS - 39395 ([id number]) QK - HOUSE ADMIN 2-4 CNCRNT ANES PROC, QX - MACHINE FEEDER RAW STOCK SVC W/ MED DIRECTION, P3 - PATIENT W/SEVERE SYS DISEASE
== END 2024-09-07 08:57 | disposition home or self-care (01) ==
LOC: OP CLINIC 08:58
PROVIDERS: PCP Family Medicine; Visit Provider Internal Medicine Gastroenterology
DX: Z12.11 Encounter for screening for malignant neoplasm of colon (principal); D12.3 Benign neoplasm of transverse colon; Z86.0100 Personal history of colon polyps, unspecified
CPT/HCPCS: 00811; 45385; 88305; J2704

== ENCOUNTER 2024-09-13 10:30 | Outpatient (RCR) | payer MEDICARE, MEDICAID, SELFPAY | END 2025-01-11 23:59 | disposition home or self-care (01) | PROVIDERS: PCP Family Medicine; Visit Provider Physician Assistant | DX: M79.604 Pain in right leg (principal); M79.605 Pain in left leg; Z51.89 Encounter for other specified aftercare | CPT/HCPCS: 97110; 97112; 97161; 97530 ==

== ENCOUNTER 2024-12-30 15:58 | Outpatient (CLI) | payer MEDICARE, MEDICAID, SELFPAY | END 2024-12-30 15:59 | disposition home or self-care (01) | PROVIDERS: PCP Family Medicine; Visit Provider Family Medicine | DX: S59.902A Unspecified injury of left elbow, initial encounter (principal); W19.XXXA Unspecified fall, initial encounter; Y92.039 Unspecified place in apartment as the place of occurrence of the external cause | CPT/HCPCS: A0425; A0433 ==

== ENCOUNTER 2024-12-30 16:44 | Emergency (ER) | payer MEDICARE, MEDICAID, SELFPAY ==
--- OUTSIDE RECORDS SUMMARY | 2024-12-30 16:46 | XMS_ITS | Clinical Summary ---
Author Organization [facility] Address [address] , [address] [place] [address] Phone Care Team Providers Care Visitor Services Coordinator Name Role Phone Tani Rosa MD Conditions or Problems Problem Name Problem Code Onset Date Status Entry Date Provider Comment Standard Description Annotate Gait imbalance 573201949 (SNOMED CT) 09/03 Active 09/03 Tani Rosa MD Abnormal gait due to impairment of balance Left median neuropathy 323767640 (SNOMED CT) 05/14 Active 05/14 Tani Rosa MD Median neuropathy Gait imbalance 006935545 (SNOMED CT) 01/30 Active 01/30 Tani Rosa MD Abnormal gait due to impairment of balance Dermatomyositi s 543646165 (SNOMED CT) 01/30 Active 01/30 Tani Rosa MD Dermatomyositis Weakness 58928049 (SNOMED CT) 01/30 Active 01/30 Tani Rosa MD Asthenia Medications Medication Instructions Start Date Stop Date Generic Name [facility] Provider TRIAMCINOLONE ACETONIDE 0.1 % OINT Apply topically to affected area(s) 3 times daily. triamcinolone (ARISTOCORT) 0.1 % ointment [id number] Tani Rosa MD TACROLIMUS 0.1 % OINT Apply topically to affected area(s) 2 times daily. tacrolimus 0.1% (PROTOPIC) 0.1 % ointment [id number] Tani Rosa MD PRAVASTATIN SODIUM 80 MG TABS Take 1 Tablet (80 mg) by mouth at bedtime. pravastatin (PRAVACHOL) 80 mg tablet [id number] Tani Rosa MD OMEPRAZOLE 20 MG CPDR TAKE ONE CAPSULE BY MOUTH ONCE DAILY BEFORE A MEAL omeprazole (PRILOSEC) 20 mg Delayed-Release capsule [id number] Tani Rosa MD METFORMIN HCL 500 MG TABS Take 2 Tablets (1,000 mg) by mouth in the morning and 2 Tablets (1,000 mg) in the evening. Take with meals. metFORMIN (GLUCOPHAGE) 500 mg tablet [id number] Tani Rosa MD LISINOPRIL 40 MG TABS TAKE ONE TABLET BY MOUTH ONCE DAILY lisinopriL (PRINIVIL; ZESTRIL) 40 mg tablet [id number] Tani Rosa MD LEVOTHYROXINE SODIUM 75 MCG TABS Take 1 Tablet (75 mcg) by mouth once daily. levothyroxine (SYNTHROID) 75 mcg tablet [id number] Tani Rosa MD HYDROXYCHLOROQUINE SULFATE 200 MG TABS Take 1 tablet by mouth 2 times daily. hydroxychloroquine (PLAQUENIL) 200 mg tablet [id number] Tani Rosa MD GABAPENTIN 100 MG CAPS TAKE ONE CAPSULE BY MOUTH IN THE MORNING AND AT NOON,2-3 CAPSULES IN THE EVENING gabapentin (NEURONTIN) 100 mg capsule [id number] Tani Rosa MD ERGOCALCIFEROL 1.25 MG (50663 UT) CAPS TAKE 1 CAPSULE BY MOUTH ONCE EVERY THURSDAY AND THURSDAY ergocalciferol (VITAMIN D2; DRISDOL) 50,000 unit capsule [id number] Tani Rosa MD TRULICITY 4.5 MG/0.5ML SOAJ Inject 4.5 mg subcutaneous once weekly. dulaglutide (Trulicity) 4.5 mg/0.5 mL subcutaneous pen [id number] Tani Rosa MD DOCUSATE SODIUM 100 MG CAPS Take 1 Capsule (100 mg) by mouth 2 times daily. docusate (DOK) 100 mg capsule [id number] Tani Rosa MD DESOXIMETASONE 0.25 % OINT Apply topically. Apply to body twice daily- desoximetasone 0.25% topical (TOPICORT) 0.25 % ointment [id number] Tani Rosa MD D 5000 125 MCG (5000 UT) CAPS TAKE ONE CAPSULE BY MOUTH ONCE DAILY cholecalciferol (VITAMIN D3) 5,000 unit capsule [id number] Tani Rosa MD CETIRIZINE HCL 10 MG TABS TAKE ONE TABLET BY MOUTH ONCE DAILY cetirizine (ZYRTEC) 10 mg tablet [id number] Tani Rosa MD BETAMETHASONE DIPROPIONATE 0.05 % LOTN Apply topically to affected area(s) 2 times daily. betamethasone dipropionate 0.05% (DIPROSONE LOTION 0.05%) lo [id number] Tani Rosa MD ASPIRIN 81 MG TBEC TAKE ONE TABLET BY MOUTH ONCE DAILY WITH A MEAL aspirin (ECOTRIN) 81 mg enteric coated tablet [id number] Tani Rosa MD ALCLOMETASONE DIPROPIONATE 0.05 % CREA Apply topically to face twice daily alclometasone 0.05% (ALCLOVATE) 0.05 % cream [id number] Tani Rosa MD SENNA-TIME 8.6 MG TABS TAKE ONE TABLET BY MOUTH TWICE A DAY NEEDED FOR CONSTIPATION Senna 8.6 mg tablet [id number] Tani Welsh i, MD FERROUS GLUCONATE 324 (37.5 Fe) MG TABS TAKE 1 TABLET BY MOUTH ONCE DAILY WITH A MEAL. Ferrous Gluconate 324 mg (38 mg iron) tablet [id number] Tani Rosa MD DIPHENHYDRAMINE-ZINC ACETATE 2-0.1 % CREA APPLY TOPICALLY TO AFFECTED AREA(S) 3 TIMES DAILY IF NEEDED FOR ITCHING ANTI-ITCH,DIPHENHYD , WITH ZINC cream [id number] Tani Rosa MD Medications Administered No information available. Allergies, Adverse Reactions, Alerts Allergy Name Reaction Description Start Date Severity Statu s Provider SULFASALAZINE Hives Severe Active Tamara Rosa MD SULFA (SULFONAMIDE ANTIBIOTICS) Hives Mild Active Tani Rosa MD SIMVASTATIN Diarrhea, Intolerance-Can't Take, Other - Describe In Comment Field Mild Active Tani Rosa MD METHOTREXATE Hepatic Dysfunction, Other - Describe In Comment Field Mild Active Tani Rosa MD FERROUS SULFATE Rash Mild Active Rafat mira Rosa MD ATENOLOL Rash Mild Active Tani Rosa MD Results Date Name Value Unit Range Flag Description Office Visit: Office Visit f ax SMOK STATUS never smoker 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 METHYL MALON * nmol/L methylma lonic acid (MMA), serum [id number] GE use only - for [employer] import when terms are not otherwise specified TEST NAME METHYLMALONIC ACID test, name Internal Other: Authorizatio n - OBS [email or web address] Yes Authoriza tion: Release of Information - Authorize [facility] - Payment and Healthcare Operations ROIAUTHOTHER Yes Authoriz ation: Release of Information - Authorize Others/Insurance - Payment and Healthcare Operations HIECONSENT Yes Consent To Release information to the Health Information Exchange (HIE) [email or web address] Yes Authorizat ion: Authorization for [facility] to leave messages, voicemail, send text messages, send emails AUTHRELHCARE Yes Authoriz ation: Release/Retrieval of Information to/from Healthcare Facilities, Pharmacy Benefit Payers and Providers AUTHPRIVPRAC Yes Authoriz ation: Notice of privacy practices AUTHBENEFIT Yes Authoriza tion: Assignment of Benefits and Payment Agreement Internal Other: Verbal Autho rization/Emergency Contact - OBS VERBAL_EMER DONE Verbal authorization and emergency contact Office Visit: Office Visit F lup after Muscle bx (Completed on 08/07) fax+mail MEDS REVIEW Done Documenta tion of current medications (procedure) Plan of Care Type Date Detail Pending order Follow up Pending order Follow up Pending order Patient Instruct ions Pending order Physical Therapy Pending order Physical Therapy Pending order Follow up teleme dicine Pending order Follow up teleme dicine Pending order EMG left lower e xt Pending order EMG left upper e xt Pending order Other Test Pending order Other Lab Pending order Patient Instruct ions Pending order Aldolase Pending order CK (Creatine Kin ase) Total Pending order Vitamin B12 Procedures Code Procedure Name Date Entry Date [facility]-[id number] Documentation of current medicatio ns ORDERS Patient Instructions ORDERS Follow up telemedicine 01/30 ORDERS Follow up telemedicine 03/14 CPT-64955 Nerve Conduction 13 or more studies 03/14 CPT-88894 EMG with NCS (5+ muscles) - 2 limbs 03/14 ORDERS Other Lab ORDERS Other Test ORDERS EMG left upper ext 2 ORDERS EMG left lower ext 2 ORDERS CK (Creatine Kinase) Total 2 ORDERS Vitamin B12 ORDERS Aldolase [facility]-[id number] Documentation of current medicatio ns ORDERS Patient Instructions Vital Signs No information available. Immunizations No information available. Advance Directives No information available.
--- OUTSIDE RECORDS SUMMARY | 2024-12-30 16:46 | XMS_ITS | Encounter Summary ---
Author Organization [facility] Address [address] [place] [address] Care Team Providers Care Hub Bander Name Role Phone Elsewhere, Pcp Primary Care Provider Unavailabl e Encounter Details Date Type Department Care Team (Late st Contact Info) Description 11/16/2024 Clinical Communication Department of Dermatology in [place], [place] [address] [place] [address] Fiona Hilliard R.N. [address] [place] [address] Social History Tobacco Use Types Packs/Day Years Used Date Smoking Tobacco: Never Passive Smoke Exposure: Never Smokeless Tobacco: Never Alcohol Use Standard Drinks/Week Comments Never 0 (1 standard drink = 0.6 oz pur e alcohol) [facility] Utilities Answer Date Recorded In the past 12 months has e [employer], gas, oil, or water nfon threatened to shut off services in your home? No 06/11/2023 Humiliation, Afraid, Rape, and Kick questionnair e Answer Date Recorded Within the last year, have y ou been afraid of your partner or ex-partner? No 02/18/2022 Within the last year, have y ou been humiliated or emotionally abused in other ways by your partner or ex-partner? No Within the last year, have y ou been kicked, hit, slapped, or otherwise physically hurt by your partner or ex-partner? No 02/18/2022 Within the last year, have y ou been raped or forced to have any kind of sexual activity by your partner or ex-partner? No 02/18/2022 Hunger Vital Sign Answer Date Recorded Within the past 12 months, y ou worried that your food would run out before you got the money to buy more. Never true 06/11/19 24 Within the past 12 months, t he food you bought just didn't last and you didn't have money to get more. Never true 06/11/2023 PRAPARE - Transportation Answer Date Re corded In the past 12 months, has l ack of transportation kept you from medical appointments or from getting medications? No 05/2023 In the past 12 months, has l ack of transportation kept you from meetings, work, or from getting things needed for daily living? No 06/11/2023 Housing Stability Answer Date Recorded What is your living situation today? I have a [facility] place to live 06/11/2023 Education Answer Date Recorded What is the highest level of school you have completed or the highest degree you have received? 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 - 12/13/2024 3:14 PM CDT Patient has been unable to get a follow up appointment despite being on the waitlist. I therefore called her to see how she was doing. She got her last infusion of IVIG a couple of weeks ago. She reports the IVIG continues to help her skin. She believes she is still seeing improvement in the rash. Her left arm is completely clear. Her right hand has a few small patches but is overall much improved. She is tolerating the infusions well with no issues and is overall happy with the every 2 month schedule. Since she is doing well and continuing to see improvement in her skin, I have recommended that we continue her IVIG every 2 months. Then I will plan to see her back in person in May to assess her skin and determine if we could space out the IVIG to every 3 months. Order placed. She expressed understanding and agreement with this plan, and will reach out with any concerns between now and then. documented in this encounter Plan of Treatment Not on file documented as of this encounter Visit Diagnoses Not on filedocumented in this encounter Care Teams Hub Bander Relationship Specialty Start Date End Date Elsewhere, Pcp PCP - General Internal Medicine 09/29/22 documented as of this encounter
--- OUTSIDE RECORDS SUMMARY | 2024-12-30 16:46 | XMS_ITS | Clinical Summary ---
Author Organization [facility] Address [address] [place] [address] Care Team Providers Care Answering Service Telephone Operator Name Role Phone Staff, Other Clinical Unavailable Unavailabl e Sandi Nunes MD Primary Care Provider Chelsea Barger MD Unavailable + Allergies Active Allergy Reactions Criticality Noted Date Comments Atenolol Rash 01/14/2008 ?dermatomyositis Ferrous Sulfate Rash 03/24/2019 Methotrexate Hepatic Dysfunction,Other - Describe In Comment Field 09/01/2007 Hepatic dysfunction Simvastatin Diarrhea,Intoleranc e-Can't Take,Other - Describe In Comment Field 09/15/2006 Diarrhea Diarrhea Sulfa (Sulfonamide Antibiotics) Hives 01/05/2015 Sulfasalazine Hives High 04/29/2016 Medications hydroxychloroquine (PLAQUENIL) 200 mg tablet Take 1 tablet by mouth 2 times daily. 0 02/26/20 11 Active betamethasone dipropionate 0.05% (DIPROSONE LOTION 0.05%) lotion Apply topically to affected area(s) 2 times daily. 1 Bottle 0 01/22/20 16 Active bifidobacterium infantis 1.5 billion cell capIndications:Ups et stomach Take 1 Tab by mouth once daily. 30 capsule 5 02/05/20 16 Active propylene glycol (SYSTANE BALANCE) 0.6 % ophthalmic solution Place 2 Drops into the eye(s) once daily if needed. 0 02/18/20 16 Active tacrolimus 0.1% (PROTOPIC) 0.1 % ointment Apply topically to affected area(s) 2 times daily. 0 06/23/19 17 Active alclometasone 0.05% (ALCLOVATE) 0.05 % cream Apply topically to face twice daily 04/05/20 13 Active desoximetasone 0.25% topical (TOPICORT) 0.25 % ointment Apply topically. Apply to body twice daily- 04/05/20 13 Active CaneIndications:Fr equent falls,Imbalance Narrow Base Quad Cane for home use. For 99 weeks. 1 Device 07/21/19 20 Active triamcinolone (ARISTOCORT) 0.1 % ointment Apply topically to affected area(s) 3 times daily. 0 08/09/19 20 Active Graduated Compression StockingsIndicatio ns:Edema of both legs For personal use. Length: calf Strength: 20-30 mmHg Circumference in cm: For calf: Ankle 20, Calf 35, Ankle to calf length 24. 1 Packet 08/02/19 21 Active docusate (DOK) 100 mg capsuleIndications :Chronic constipation Take 1 Capsule (100 mg) by mouth 2 times daily. 180 capsule. 3 02/07/20 21 Active carbamide peroxide (DEBROX) 6.5 % otic solution 5 Drops. Active hydrocortisone (HYTONE) 2.5 % ointment APPLY 1 APPLICATION TOPICALLY 2 (TWO) TIMES A DAY. APPLY TO FACE, RASH LOCATED UNDER ARMPITS, GROIN REGION. 01/24/20 22 Active white petrolatum (Aquaphor Healing) 41 % ointmentIndication s:Dermatomyositis (HC) Apply topically to affected area(s) 3 times daily if needed (dry skin). 396 g 6 01/23/20 23 Active acetaminophen (TYLENOL EXTRA STRGTH) 500 mg tabletIndications: Pain Take 1-2 Tablets (500-1,000 mg) by mouth every 6 hours if needed for Pain or Temp>101.5F (38.6C). 100 Tablet 3 01/23/20 23 Active emollient (Vanicream) creamIndications:D ermatomyositis (HC) Apply topically to affected area(s) 2 times daily if needed for Dry Skin, Irritation or Itching. 113 g 3 01/23/20 23 Active diphenhydrAMINE-zi nc acetate, 2%-0.1%, (Benadryl Extra Strength) creamIndications:I tching Apply topically to affected area(s) 3 times daily if needed for Itching. 100 g 5 09/14/19 24 Active TRUEplus Lancets 33 gauge miscIndications:Ty pe II diabetes mellitus with nephropathy (HC) As directed. Dispense item covered by pt ins. E11.9 NIDDM type II - Test 1 time/day 300 Each 3 10/28/19 24 Active blood-glucose meterIndications:T ype II diabetes mellitus with nephropathy (HC) Test once/day. Dispense meter covered by pts insurance. 1 Each 12/24/19 24 Active aspirin (ECOTRIN) 81 mg enteric coated tabletIndications: Type 2 diabetes mellitus with diabetic nephropathy, without long-term current use of insulin (HC) TAKE 1 TABLET BY MOUTH ONCE DAILY WITH A MEAL. 90 Tablet 3 01/15/20 24 Active disposable glovesIndications: Dermatomyositis (HC) For home use. 100 Each 3 02/07/20 24 Active pravastatin (PRAVACHOL) 80 mg tabletIndications: Mixed hyperlipidemia TAKE 1 TABLET (80 MG) BY MOUTH AT BEDTIME. 90 Tablet 3 02/17/20 24 Active gabapentin (NEURONTIN) 100 mg capsuleIndications :Diabetic peripheral neuropathy (HC) TAKE TWO CAPSULES(200MG) BY MOUTH THREE TIMES DAILY 540 Capsule 3 02/17/20 24 Active ferrous gluconate 324 mg (38 mg iron) tabletIndications: Iron deficiency anemia secondary to blood loss (chronic) TAKE 1 TABLET BY MOUTH ONCE DAILY WITH A MEAL. 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 90 Tablet 3 06/09/19 25 Active lisinopriL (PRINIVIL; ZESTRIL) 40 mg tabletIndications: Primary hypertension Take 1 Tablet (40 mg) by mouth once daily. 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 360 Tablet 3 06/09/19 25 Active blood sugar diagnostic (Accu-Chek Guide test strips) stripIndications:T ype II diabetes mellitus with nephropathy (HC) Dispense item covered by pt ins. 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 180 Tablet 3 07/06/19 25 Active polyethylene glycol-electrolyte (GOLYTELY) 236-22.74-6.74 -5.86 gram suspensionIndicati ons:Encounter for screening colonoscopy Drink 2 liters (half the bottle) the day before colonoscopy and 2 liters (remaining prep) 6 hours prior to colonoscopy appointment. 4000 mL 07/08/19 25 Active durable medical equipment (DME)Indications:T ype II diabetes mellitus with nephropathy (HC) Diabetic shoes for home use, length of need 99. Dispense 1 pair 1 Each 08/26/19 25 Active amLODIPine 2.5 mg tabletIndications: HTN (hypertension) TAKE ONE TABLET (2.5 MG) BY MOUTH ONCE DAILY. 90 Tablet 1 10/03/19 25 Active famotidine 20 mg tabletIndications: Chronic GERD TAKE 1 TABLET (20 MG) BY MOUTH TWO TIMES DAILY. 180 Tablet 2 10/03/19 25 Active levothyroxine 100 mcg tabletIndications: Acquired hypothyroidism Take 1 Tablet (100 mcg) by mouth before breakfast. 90 Tablet 3 10/18/19 25 Active azelastine 137 mcg/actuation nasal sprayIndications:A llergic rhinitis, unspecified seasonality, unspecified trigger Inhale 1 [place] into affected nostril(s) two times daily. 30 mL 3 10/25/19 25 Active cholecalciferol (Vitamin D3) (Vitamin D-3) 5,000 unit tab tabletIndications: Vitamin D deficiency Take 1 Tablet (5,000 units) by mouth once daily. 90 Tablet 3 11/30/19 25 Active Active Problems Problem Noted Date Diagnosed Date Nonrheumatic aortic valve stenosis 04/13/2024 Overview (04/13/2024): Due for repeat echo between [id number] History of compression fracture of spine 024 Overview (04/13/2024): T12 and L1 Interstitial lung disease 05/26/2022 Hyperparathyroidism 08/05/2021 ASCUS of cervix with negative high risk HPV 07/10 Overview (08/21/2021): 02/05/05, 08/01/21 ASCUS/HPV negative Plan:Pap/HPV due 07/2024 Adenomatous colon polyp 04/20/2019 Overview (09/09/2024): Colonoscopy 04/2019 polyp, repeat in 5 years Colonoscopy 09/2024 TA, repeat in 5 years Chronic kidney disease, stage I 02/10/2017 Elevated liver function tests 07/04/2011 Steroid long-term use 02/25/2011 Vitamin D deficiency 11/23/2009 Anxiety Disorder,NOS; rule o ut medication induced (prednisone), rule out due to general medical condition 08/29/2008 Rule out Episodic Unspecified Mood Disorder. 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 Needs twice yearly pelvic ultrasound and CA-125, annual Pap smear, annual mammogram and routine colonoscopy for cancer screening per [facility] tumbler plater note 05/2011. Resolved Problems Problem Noted Date Diagnosed Date Resolved Date Cardiomyopathy, unspecified type 08/05/2021 09/23/2021 Rule out Psychoactive Substa nce-Induced Organic Anxiety Disorder; prednisone, Immuran specifically 08/29/2008 08/29/2008 Other abnormal blood chemistry 06/23/2007 12/17/2011 Lichenification and lichen simplex chronicus 7 12/01/2007 Type II or unspecified type diabetes mellitus without mention of complication, not stated as uncontrolled 04/08/2006 02/28/2009 Encounters Date Type Department Care Team Description 12/09/2024 9:25 AM CDT Office Visit [facility] [address] [place] [address] Darcy Cavazos PA Wrist Injury (Left wrist pain, follow up from 11/10) 12/09/2024 Travel 12/08/[address] [address] Sandi Nunes MD Error-please disregard 11/29/[address] [address] Sandi Nunes MD Medication Management (Vitamin D) 11/29/[address] [address] Sandi Nunes MD Results 11/28/2024 11:15 AM CDT Orders Only [address] [address] Lab, [facility] 11/28/2024 Travel 11/21/[address] [address] Sandi Nunes MD Questions (wrist splints) 11/21/[address] [address] Sandi Nunes MD Refill Request (Ergocalciferol) 11/10/2024 2:30 PM CDT Ancillary Procedure [address] [place] [address] 11/10/2024 2:05 PM CDT Office Visit [facility] [address] [place] [address] Darcy Cavazos PA Wrist Pain/problem 11/10/2024 Travel 11/09/2024 Telephone [facility] [address] [facility] [place] [address] aSndi Nunes MD Questions 10/26/2024 11:45 AM CDT Office Visit [facility] [address] [facility] [place] [address] Sandi Nunes MD Urinary Problem (Increased urination at night, up every two hours even when limiting fluid intake in evenings.) 10/26/2024 Travel 10/24/2024 Telephone [facility] [place] [address] Sandi Nunes MD Medication Management (azelastine 137 mcg/actuation (ASTELIN) nasal spray) 10/14/2024 Telephone [facility] [place] [address] Sandi Nunes MD Results (Lab ) 10/13/2024 8:30 AM CDT Orders Only [facility] [place] [address] Lab, [facility] 10/13/2024 Travel 09/30/[address] [place] [address] Sandi Nunes MD Refill Request (Amlodipine, Famotidine) from Last 3 Months Immunizations Immunization Administration Dates Next Due COVID-19 VACCINE SPIKEVAX (M ODERNA 50MCG/0.5ML) 12YO+ PFS 02/17/2024,03/12/2023 COVID-19 vaccine (Moderna 100mcg/0.5mL) PF, MDV 03/28/2021,07/04/2020,06/06/2020 COVID-19 vaccine ([employer] NTEnsenda 30mcg/0.3mL) 12YO+ BIVALENT PF, MDV 09/02/2022,02/10/2022 COVID-19 vaccine ([employer] NTech 30mcg/0.3mL) 12YO+ FABIÁN-SUCROSE PF, MDV 09/23/2021 Hepatitis B (Adult) 02/25/2011,11/12/2010,2008 INFLUENZA, IIV3 PF (AGE >= 6 MO) 02/17/2024 Influenza Virus, Unspecified 02/24/2013,03/11/20 12 Influenza, IIV3 (Age 6-35 mos) 02/25/2011 Influenza, IIV3 (Age >=3 years) 03/08/20 13,02/20/2012,02/25/2011,2009,01/23/2009,03/10/2008,05/01/2004,1 ,03/09/2002 Influenza, IIV4 01/22/2023,,02/06/2021,2019,01/20/2019,01/19/2018,01/30/2017,1 ,01/09/2015,01/23/2014 Pneumococcal Conj 20-valent (Prevnar 20) 05/26/2022 Pneumococcal Poly,23-Valent (Pneumovax) 10/03/2009 TD, UNSPECIFIED 04/13/2009 Td (Age >=7 Years) 06/09/2005 Td, Preservative Free (age > = 7 Years) 04/13/2009 Tdap 03/05/2020,07/29/2017,02/02/2010 Zoster (Shingrix-RZV, recombinant) 01/04/2018, Family History Medical History Relation Name Comments Heart Disease Brother 6 Unknown Father Diabetes Mother age 84 Hypertension Mother Other Mother macular degener ation/liver failure, 85 Thyroid Disease Mother hypothyroid Cancer-breast No Family History Cancer-ovarian No Family History Relation Name Status Comments Brother 1 Alive Brother 2 Alive Brother 3 Alive Brother 4 Alive Brother 5 Alive Brother 6 Father Mother Sister Alive Social History Tobacco Use Types Packs/Day Years Used Date Smoking Tobacco: Never Smokeless Tobacco: Never Tobacco Cessation:Counseling Given: Yes Alcohol Use Standard Drinks/Week Comments No 0 (1 standard drink = 0.6 oz pur e alcohol) PHQ-2 Answer Date Recorded PHQ-2 TOTAL SCORE 0 04/13/2024 Social Connections Answer Date Recorded Do you often feel lonely or isolated from those around you? 0 02/17/2024 Financial Resource Strain Answer Date R ecorded Difficulty of Paying Living Expenses 3 02/17/2024 Difficulty of Paying Living Expenses Not on file 02/17/2024 Food Insecurity Answer Date Recorded Do you worry your food will run out before you are able to buy more? 1 02/17/2024 Transportation Needs Answer Date Record ed Does lack of transportation keep you from medica l appointments? 1 02/17/2024 Does lack of transportation keep you from work, meetings or getting things that you need? 1 02/17/2024 Housing Stability Answer Date Recorded What is your housing situation today? 1 02/17/2024 Utilities Answer Date Recorded Do you have trouble paying f or utilities (for example, heat, electricity, water, phone)? 1 02/17/2024 Comments No Sex and Gender Information Value Date Recorded Sex Assigned at Not on file Legal Sex Female 5:26 AM IMAGING ADMINISTRATOR Gender Identity Not on file Sexual Orientation Not on file Occupation Industry Job Start Date Job End Date Not on file Not on file Not on file Not on file Obstetrics History Para Term AB IAB SAB Ectopic Multiple Livin g Live Births 0 0 0 0 0 0 0 0 0 0 Last Filed Vital Signs Vital Sign Reading Time Taken Comments Blood Pressure 145/82 12/09/2024 9:43 AM CDT Pulse 92 12/09/2024 9:43 AM CDT Temperature 36.6 C (97.8 F) 12/09/2024 9:43 AM CDT Respiratory Rate 18 01/28/2023 12:1 7 PM CDT Oxygen Saturation 100% 12/09/2024 9:43 AM CDT Inhaled Oxygen Concentration - - Weight 68.4 kg (150 lb 12.8 oz) 12/09/2024 9:43 AM CDT Height 159.5 cm (5' 2.8) 04/13/2024 1:03 PM IMAGING ADMINISTRATOR Body Mass Index 26.89 04/13/2024 1:03 PM IMAGING ADMINISTRATOR Plan of Treatment Upcoming Encounters Date Type Department Care Team (Late st Contact Info) Description 03/01/2025 1:35 PM CDT Office Visit [facility] [address] [place] [address] Sandi Nunes MD [address] [place] [address] Health Maintenance Due Date Last Done Comments RSV vaccine for adults or (1 - Risk 60-74 years 1-dose series) 2020 Pap test for age 21-65 07/31/2024 2, 07/31/2021, 02/25/2016, Additional history exists COVID-19 vaccine series (9 - Moderna risk season) 2024 02/17/2024, 03/12/2023, 09/02/2022, Additional history exists Influenza Vaccine (#1) 2025 4, 01/22/2023, 02/10/2022, Additional history exists BMI (ht and wt on same day) for age 18+ 04/13/2025 04/13/2024, 11/11/2023, 10/15/2023, Additional history exists Mammogram for age 45-75 04/13/2025 04/13/20 24, 04/06/2023, 04/04/2022, Additional history exists Depression screening for age 12+ 04/14/2025 04/14/2024, 04/13/2024, 04/06/2023, Additional history exists Lipids for age 45-75 02/16/2029 02/17/2024, 04/06/2023, 11/07/2021, Additional history exists Colonoscopy through age 75 09/07/202909/07, 09/07/2024, 04/19/2019, Additional history exists Tetanus booster 03/05/2030 03/05/2020, 07/10, 02/02/2010, Additional history exists Hepatitis B series for 19+ Completed 02/25, 11/12/2010, 07/13/2008 Zoster (shingles) series for age 50+ Completed 01/04/2018, 10/30/2017 Hepatitis C screening for ag e 18-79 Completed 12/02/2021, 06/17/2011 Pneumococcal series for age 50+ Completed , 10/03/2009 HIV for age 15-65 Completed 04/06/2023 Procedures Procedure Name Priority Date/Time Associated Diagnosis Comments TSH Routine 11/28/2024 11:10 AM CDT Acquired hypothyroidism VITAMIN D 25 (DEFICIENCY) Routine 11/28/2024 11:10 AM CDT Vitamin D deficiency XR WRIST W NAVICULAR MINIMUM 3 VIEWS LEFT STAT 11/10/2024 2:40 PM CDT Pain and swelling of wrist, left URINALYSIS MACROSCOPIC - [facility] ONLY POC DIP ([facility]) Routine 10/26/2024 12:04 PM CDT Frequent urination at night URINALYSIS MICROSCOPIC Routine 10/26/2024 12:03 PM CDT Frequent urination at night URINE CULTURE Routine 10/26/2024 12:03 PM CDT Frequent urination at night TSH Routine 10/13/2024 8:34 AM CDT Acquired hypothyroidism COLONOSCOPY SCREENING Routine 09/07/2024 12:00 AM CDT History of colon polyps XR MAMMO HEIDY BILAT SCREEN Routine 04/13/2024 11:47 AM IMAGING ADMINISTRATOR Visit for screening mammogram LIPID PANEL W REFLEX MEASURED LDL Routine 02/17/2024 10:18 AM CDT 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) ANTI HIV 1/2 Routine 04/06/2023 1:30 PM IMAGING ADMINISTRATOR Screening for HIV (human immunodeficiency virus) ANTI HCV Routine 12/02/2021 2:10 PM CDT Amyopathic dermatomyositis (HC) DRAFTER TOOL DESIGN THIN PREP PAP SCREEN IMAGED Routine 07/31/2021 2:10 PM CDT Routine Papanicolaou smear from Last 3 Months or Most Recently Relevant to Health Maintenance Results * (ABNORMAL) VITAMIN D 25 (DEFICIENCY) (11/28/2024 11:10 AM CDT) VITAMIN D,25-OH,TOTAL,IA 24(L) 30 - 100 ng/mL [facility] Comment: Vitamin D Status 25-OH Vitamin D: Deficiency: <20 ng/mL Insufficiency: 20 - 29 ng/mL Optimal: > or = 30 ng/mL For 25-OH Vitamin D testing on patients on D2-supplementation and patients for whom quantitation of D2 and D3 fractions is required, the QuestAssureD(TM) 25-OH VIT D, (D2,D3), LC/MS/MS is recommended: order code 38975 (patients >2yrs). See Note 1 Note 1 For additional information, please refer to http://education.[employer]/faq/CPW754 (This link is being provided for informational/ educational purposes only.) Blood BLOOD SPECIMEN / Unknown 11/28/2024 11:10 AM CDT 11/28/2024 11:11 AM CDT Sandi Nunes MD SEND OUTS Final R esult [employer] [facility] [address] [place] [address], [facility] [address] [place] [address] * TSH (11/28/2024 11:10 AM CDT) Only the most recent of2 resultswithin the time period is included. TSH 1.13 0.40 - 4.50 mIU/L [facility] Blood BLOOD SPECIMEN / Unknown 11/28/2024 11:10 AM CDT 11/28/2024 11:11 AM CDT Sandi Nunes MD CHEMISTRY Final R esult [employer] [facility] [address] [place] [address], [facility] [address] [place] [address] * XR WRIST W NAVICULAR MINIMUM 3 VIEWS LEFT (11/10/2024 2:40 PM CDT) Anatomical Region Laterality Modality WRISTS, WRIST L Computed Radiogr aphy 11/10/2024 2:45 PM CDT Narrative 11/10/2024 2:45 PM CDT For Patients: As a result of the Cures Act, medical imaging exams and procedure reports are released immediately into your electronic medical record. You may view this report before your referring provider. If you have questions, please contact your health care provider. Indication: Pain and swelling Technique: Four views left wrist Comparison: Left wrist 06/20/2014 Findings/Impression: Bones: Diffuse osteopenia without definite evidence of fracture. No clear destructive changes to suggest osteomyelitis. Joint spaces: No dislocation. Minimal chondrocalcinosis. Soft tissues: Moderate soft tissue swelling. Dictated by Gurmeet Alarcon MD @ 11/10/2024 2:45:39 PM (Electronically Signed) Procedure Note Gurmeet Alarcon MD - 11/10/2024 For Patients: As a result of the Cures Act, medical imagingexams and procedure reports are released immediately into your electronicmedical record. You may view this report before your referring provider.If you have questions, please contact your health care provider. Indication: Pain and swelling Technique: Four views left wrist Comparison: Left wrist 06/20/2014 Findings/Impression: Bones: Diffuse osteopenia without definite evidence of fracture. No cleardestructive changes to suggest osteomyelitis. Joint spaces: No dislocation. Minimal chondrocalcinosis. Soft tissues: Moderate soft tissue swelling. Dictated by Gurmeet Alarcon MD @ 11/10/2024 2:45:39 PM (Electronically Signed) [facility] Final Result * (ABNORMAL) POCT Urinalysis Dipstick Only [[id number]] (10/26/2024 12:04 PM CDT) Pathologist [facility] PH 5.5 5.0 - 8.0 [facility] SPECIFIC GRAVITY 1.025 1.001 - 1.035 [facility] GLUCOSE NEGATIVE NEGATIVE [facility] BILIRUBIN NEGATIVE NEGATIVE [facility] KETONES NEGATIVE NEGATIVE [facility] OCCULT BLOOD TRACE(A) NEGATIVE [facility] PROTEIN 1+(A) NEGATIVE [facility] NITRITE NEGATIVE NEGATIVE [facility] LEUKOCYTE ESTERASE TRACE(A) NEGATIVE [facility] Urine URINE SPECIMEN / Unknown 10/26/2024 12:04 PM CDT 10/26/2024 12:04 PM CDT Sandi Nunes MD URINE Final R esult [facility] [email or web address] [address] [place] [address], [facility] [address] [place] [address] * URINALYSIS MICROSCOPIC [77156.1] - routine (10/26/2024 12:03 PM CDT) RBC 0-2 0-2, None Seen /HPF 10/27/2024 12:18 AM CDT [facility] WBC 3-5 0-2, 3-5, None Seen /HPF 10/27/2024 12:18 AM CDT [facility] BACTERIA Rare None Seen, Rare, Few Bacteria/ HPF 10/27/2024 12:18 AM CDT [facility] EPITHELIAL CELLS None Seen None Seen, Few Epi/HPF 10/27/2024 12:18 AM CDT [facility] TRAL LABORATORY HYALINE CASTS 0-2 0-2, 3-5 /LPF 10/27/2024 12:18 AM CDT [facility] TRA LABORATORY Urine URINE SPECIMEN / Unknown Non-Blood / Unknown 10/26/2024 12:03 PM CDT 10/26/2024 12:03 PM CDT Narrative [facility] - 10/27/2024 12:18 AM CDT Specimen exceeds standard time for testing Sandi Nunes MD URINE Final R esult Performing Organization Address City/[facility]/ZIP Co de Phone Number [facility] [address] [place] [address], [place] * URINE CULTURE [11421.2] (10/26/2024 12:03 PM CDT) CULTURE <10,000 CFU/mL multiple organisms 10/28/2024 1:58 PM CDT [facility] Urine URINE SPECIMEN / Unknown Non-Blood / Unknown 10/26/2024 12:03 PM CDT 10/26/2024 12:03 PM CDT Sandi Nunes MD MICROBIOLOGY Final R esult Performing Organization Address City/[facility]/ZIP Co de Phone Number [facility] [address] [place] [id number], [place] * COLONOSCOPY SCREENING (09/07/2024 12:00 AM CDT) Jerry Quan MD GI PROCEDURE ORD Final Re sult * XR MAMMO HEIDY BILAT SCREEN (04/13/2024 11:47 AM IMAGING ADMINISTRATOR) Anatomical Region Laterality Modality BREASTS, Breast Left, Breast Right Bilateral Mammography Impressions 04/17/2024 8:06 AM IMAGING ADMINISTRATOR There is no radiographic evidence for malignancy. Recommend annual mammograms. MAMMOGRAM ASSESSMENT: ACR 2 Benign PATIENTS: You will also receive a letter with your examination results in an easy to read format. If you have questions about your results, please contact your referring provider. Narrative 04/17/2024 8:06 AM IMAGING ADMINISTRATOR For Patients: As a result of the 21st Century Cures Act, medical imaging exams and procedure reports are released immediately into your electronic medical record. You may view this report before your referring provider. If you have questions, please contact your health care provider. XR MAMMO HEIDY BILAT SCREEN [[id number]] CLINICAL HISTORY: This is an asymptomatic 63 y.o. patient. INDICATION FOR EXAM: Mammogram Screening. TECHNIQUE: CC & MLO views were obtained. This study was evaluated with the assistance of Computer-Aided Detection. Breast Tomosynthesis was used in interpretation. COMPARISON FILMS: Yes 04/06/23 [facility] 04/04/22 [facility] FINDINGS: The breasts are heterogeneously dense, which may obscure small masses. No suspicious masses or microcalcifications. There are stable benign calcifications. us Sandi Nunes MD MAMMO Final R esult * (ABNORMAL) LIPID PANEL W REFLEX MEASURED LDL (02/17/2024 10:18 AM CDT) CHOLESTEROL, TOTAL 195 <200 mg/dL [facility] HDL CHOLESTEROL 41(L) > OR = 50 mg/dL [facility] TRIGLYCERIDES 238(H) <150 mg/dL [facility] Comment: If a non-fasting specimen was collected, consider repeat triglyceride testing on a fasting specimen if clinically indicated. Julianne et al. J. of Clin. Lipidol. 2015;9:129-169. LDL-CHOLESTEROL 118(H) mg/dL (calc) [facility] Comment: Reference range: <100 Desirable range <100 mg/dL for primary prevention; <70 mg/dL for patients with CHD or diabetic patients with > or = 2 CHD risk factors. LDL-C is now calculated using the Ramiro calculation, which is a validated novel method providing better accuracy than the Friedewald equation in the estimation of LDL-C. Jerry STARKEY et al. MANUEL. 2013;310(19): 4667-6363 (http://education.[employer]/faq/ONT621) CHOL/HDLC RATIO 4.8 <5.0 (calc) [facility] NON HDL CHOLESTEROL 154(H) <130 mg/dL (calc) [facility] Comment: For patients with diabetes plus 1 major ASCVD risk factor, treating to a non-HDL-C goal of <100 mg/dL (LDL-C of <70 mg/dL) is considered a therapeutic option. Blood BLOOD SPECIMEN / Unknown 02/17/2024 10:18 AM CDT 02/17/2024 10:19 AM CDT Sandi Nunes MD CHEMISTRY Final R esult Performing Organization Address [facility] Co de Phone Number [employer] [facility] [address] [place] [address], [place] [phone] [facility] [address] * ANTI HIV 1/2 [79984.0] (04/06/2023 1:30 PM IMAGING ADMINISTRATOR) Pathologist [facility] HIV-1/HIV-2 SCREEN Non-Reacti ve Non-Reacti ve 04/06/2023 10:53 PM IMAGING ADMINISTRATOR [facility] Comment:HIV-1 p24 and HIV-1/ HIV-2 Ab Not Detected. Blood BLOOD SPECIMEN / Unknown Venipuncture / Unknown 04/06/2023 1:30 PM IMAGING ADMINISTRATOR 04/06/2023 1:32 PM IMAGING ADMINISTRATOR Sandi Nunes MD SEND OUTS Final R esult [facility] [address] [place] [address], [place] * ANTI HCV (12/02/2021 2:10 PM CDT) Pathologist [facility] HEPATITIS C ANTIBODY Non-React charlette Non-React charlette 12/03/2021 5:58 AM CDT [facility] Comment:Antibodies to HCV no t detected; does not exclude the possibility of exposure to HCV. Blood BLOOD SPECIMEN / Unknown Venipuncture / Unknown 12/02/2021 2:10 PM CDT 12/02/2021 2:21 PM CDT us Poonam Liang MD SEND OUTS Final Resul t [facility] [address] [place] [address], [place] * (ABNORMAL) DRAFTER TOOL DESIGN THIN PREP PAP SCREEN IMAGED (07/31/2021 2:10 PM CDT) Case Report Gynecologic Cytology Report Case: [id number] Authorizing Provider: Edda Rogers MD Collected: 07/31/2021 1410 Ordering Location: [facility] Received: 07/31/2021 1420 Clinic First Screen: Baccam, Minie Pathologist: Waldemar Hernandez Jr., MD Specimen: DRAFTER TOOL DESIGN ThinPrep Vial Screening, Cervical 08/20/2021 2:03 PM CDT [facility] INTERPRETATION/ RESULT ATYPICAL SQUAMOUS CELLS OF UNDETERMINED SIGNIFICANCE (ASCUS)(A) (none) 08/20/2021 2:03 PM CDT [facility] at 1403 CDT SPECIMEN ADEQUACY Satisfactory for evaluation Endocervical component present 08/20/2021 2:03 PM CDT [facility] HPV REQUEST HPV if ASCUS 08/20/2021 2:03 PM CDT [facility] Date of LMP POSTMENOPAUSAL 2 2:03 PM CDT [facility] Last Pap Date 02/25/16 08/20/2021 2:03 PM CDT [facility] Last Pap Result NIL 2 2:03 PM CDT [facility] Abnormal Pap or Weston Bx in last 5 years No 08/20/2021 2:03 PM CDT [facility] Menstrual Status Postmenopausal 08/20/2021 2:03 PM CDT [facility] Weston Bx Done Today No 08/20/2021 2:03 PM CDT [facility] Additional Information None given 08/20/2021 2:03 PM CDT [facility] Comment: Cytology is screened at [facility] - [address], [place] [address] and [facility] - [address], [place] [address] and [facility] - [address] [place] [address] [facility] - [address], [place] [address] Automated Review Successful 08/20/2021 2:03 PM CDT [facility] Comment:Specimen processed s uccessfully by automated clothing pattern preparer device, ThinPrep Imaging System, [employer] ANCILLARY TESTING DRAFTER TOOL DESIGN HPV Ordered, Please see separate report 08/20/2021 2:03 PM CDT [facility] Note The pap test is a screening technique, not a diagnostic procedure. It is used primarily to screen for squamous cancers and precursor lesions. Published studies have shown that it is subject to both false negative and false positive results. The pap test should not be used as the sole means to diagnose or exclude pre-malignant and malignant lesions. 08/20/2021 2:03 PM CDT [facility] Other (Cervical) Non-Blood / Unknown 07/31/2021 2:10 PM CDT 07/31/2021 2:20 PM CDT us Edda Rogers MD PATHOLOGY/CYTOLOGY Final Re sult [facility] 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 08/16/2024 Insurance MEDICAID MEDICARE PB ONLY MEDICARE PART B HB ONLY MEDICARE PART A HB ONLY Member Subscriber Plan / Payer ( fective 2012-Present) Name:Robby Mar Jose Eduardo Member ID:[id number] Relation to Subscriber:Self Name:Janett Bustamantehlkash Whitt Subscriber ID:[id number] Payer ID:Not on file Group ID:Not on file Type:Not on file Address: ATTN: CLAIMS [id number] Advance Directives Documents on File Type Date Recorded Patient Senior Enlisted Advisor Expl anation Healthcare Directive 03/03/2019 12:00 AM 03/03/19 Power of [employer]ice [employer] 04/20/2008 LETTERS OF GUARDIANSHIP AND CONSERVATORSHIP, [facility] 04/20/08 Power of Spice [employer] 01/18/2007 SHORT FORM Care Teams Answering Service Telephone Operator Relationship Specialty Start Date End Date Sandi Nunes MD [address] [place] [address] PCP - General Family Practice 12/17/11 Staff, Other Clinical . Dermatology 06/17/11 Chelsea Barger MD [address] [place] [address] Dermatology Dermatology 09/22/13
--- OUTSIDE RECORDS SUMMARY | 2024-12-30 16:46 | XMS_ITS | Clinical Summary ---
Author Organization [facility] Address [address] [place] [address] Care Team Providers Care Classroom Instructional Aide Name Role Phone Elsewhere, Pcp Primary Care Provider Unavailabl e Source Comments Patient records contain information from all sites at [facility]. For routine questions regarding patient records, call [phone] during business hours, M-F 8:00 AM - 5:00 PM Central Time. Record requests for emergency care only can be directed to [phone] at any time.[facility] Allergies Active Allergy Reactions Criticality Noted Date Comments Atenolol Rash 01/14/2008 ?dermatomyositis Ferrous Sulfate Rash 03/24/2019 Methotrexate Other (see comments) 09/01/2007 Hepatic dysfunction Hepatic dysfunction Simvastatin Diarrhea,GI intolerance,Other (see comments) 09/15/2006 Diarrhea Diarrhea Diarrhea Sulfa (Sulfonamide Antibiotics) Hives (Reselect Reaction) 01/05/2015 Sulfasalazine Hives (Reselect Reaction) High 04/29/2016 Medications * This document contains information received from the source organization and may not represent a complete record from that organization. acetaminophen (TYLENOL) 500 mg tablet Take 500-1,000 mg by mouth. Active alclometasone (ACLOVATE) 0.05 % cream Apply topically to face twice daily 04/05/20 [address] tablet Take 81 mg by mouth. 01/10/20 22 Active azelastine (ASTELIN) 137 mcg/spray (0.1 %) nasal spray 1 spray. Activ e betamethasone dipropionate (DIPROLENE) 0.05 % lotion Apply topically. 01/22/20 16 Active Bifidobacterium infantis 1.5 billion cell capsule Take 1 tablet by mouth. 02/05/20 16 Active blood sugar diagnostic (Contour Next Test Strips) strips Dispense item covered by pt ins. E11.9 NIDDM type II - Test 3 times/day. Reason: High A1C 11/08/19 Active carbamide peroxide (DEBROX) 6.5 % otic solution 5 drops. Active cetirizine (ZyrTEC) 10 mg tablet Take 1 tablet by mouth daily. 01/10/20 Active cholecalciferol (VITAMIN D3) 1,250 mcg (50,000 Unit) capsule Take 50,000 Units by mouth. 11/09/19 22 Active desoximetasone (TOPICORT) 0.25 % ointment Apply topically. Apply to body twice daily- 04/05/20 13 Active diphenhydrAMINE -zinc acetate (BENADRYL ES) 2 % cream Apply topically. 10/28/19 17 Active docusate sodium (COLACE) 100 mg capsule Take 100 mg by mouth. 04/13/20 09 Active empagliflozin (JARDIANCE) 25 mg tablet Take 25 mg by mouth. 11/08/19 22 Active ferrous gluconate (FERGON) 324 mg (38 mg iron) tablet Take 324 mg by mouth. 10/07/19 22 Active gabapentin (NEURONTIN) 100 mg capsule TAKE ONE CAPSULE BY MOUTH IN THE MORNING AND AT NOON,2-3 CAPSULES IN THE EVENING 05/24/19 19 Active glipiZIDE (GLUCOTROL) 5 mg tablet Take 0.5 tablets by mouth 2 (two) times a day before breakfast and dinner. 08/27/19 11 Active hydroCHLOROthia zide (MICROZIDE) 12.5 mg capsule Take 2 capsules by mouth daily. 08/28/19 11 Active levothyroxine (SYNTHROID, LEVOTHROID) 75 mcg tablet Take 75 mcg by mouth. 03/04/20 16 Active lisinopriL (PRINIVIL,ZESTR IL) 40 mg tablet Take 1 tablet by mouth daily. 04/14/20 09 Active metFORMIN (GLUCOPHAGE) 500 mg tablet Take 1,000 mg by mouth. 08/27/19 11 Active metoprolol tartrate (LOPRESSOR) 50 mg tablet Take 0.5 tablets by mouth 2 (two) times a day. 08/27/19 11 Active omeprazole (PriLOSEC) [address] capsule Take 20 mg by mouth. 10/07/19 22 Active pravastatin (PRAVACHOL) 80 mg tablet Take 80 mg by mouth. 08/27/19 11 Active propylene glycoL (SYSTANE) 0.6 % ophthalmic solution Administer 2 drops into affected eye(s). 02/18/20 16 Active sennosides (SENOKOT) 8.6 mg tablet Take by mouth. 10/07/19 22 Active sodium thiosulfate 25 % - zinc oxide ointmentIndicat ions:Dermatomyo sitis (HCC) Apply topically 2 (two) times a day. Apply to affected of areas of calcium deposits twice a day 60 g 11 01/22/20 22 Active Additional Information Patient not taking.Reported on 05/20/2024 linaGLIPtin (TRADJENTA) 5 mg tablet Take 5 mg by mouth every morning before breakfast. 02/11/20 22 Active TRUEplus Lancets 33 gauge misc 3 (three) times a day. for testing 11/13/19 22 Active ergocalciferol (DRISDOL) 50,000 Unit capsule Take 50,000 Units by mouth. On Thursday and 02/14/20 22 Active amLODIPine (NORVASC) 2.5 mg tablet TAKE 1 TABLET (2.5 MG) BY MOUTH ONCE DAILY. 09/25/19 23 Active betamethasone dipropionate 0.05 % lotionIndicatio ns:Dermatomyosi tis (HCC) Apply 1 Application topically 2 (two) times a day. Apply to affected areas of the scalp. Use for up to 2 weeks in a row as needed for flares. 60 mL 3 07/28/19 24 Active NON FORMULARY Automated home blood pressure cuff. Length of need 99 04/06/20 23 Active blood-glucose meter misc as directed 12/24/19 24 Active hydrocortisone (Hytone) 2.5 % creamIndication s:Dermatomyosit is (HCC) Apply 1 Application topically 2 (two) times a day. Apply to rash of face twice a day as needed for itching. Ok to use with Protopic. Use for 14 days in a row during flares. Repeat as needed. 60 g 3 12/30/19 24 Active triamcinolone (Kenalog) 0.1 % creamIndication s:Dermatomyosit is (HCC) Apply topically 2 (two) times a day. Apply to rash of body twice a day as needed for itching. Ok to use with Protopic. Use for 14 days in a row during flares. Repeat as needed. 80 g 3 12/30/19 24 Active famotidine (Pepcid) 20 mg tablet Take 20 mg by mouth 2 (two) times a day. 04/05/20 24 Active hydroxychloroqu ine (PlaqueniL) 200 mg tabletIndicatio ns:Dermatomyosi tis (HCC) Take 1 tablet (200 mg total) by mouth daily. 180 tablet 4 05/20/19 25 Active tacrolimus (Protopic) 0.1 % ointment APPLY 1 APPLICATION TOPICALLY 2 (TWO) TIMES A DAY. 200 g 11 12/23/19 25 Active tacrolimus (Protopic) 0.1 % ointment Apply 1 Application topically 2 (two) times a day. 200 g 11 10/28/19 24 025 Discontinued Active Problems Problem Noted Date Diagnosed Date Dermatomyositis 04/17/2022 Encounters Date Type Department Care Team Description 12/21/2024 Refill Department of Dermatology in [place], [place] [address] [place] [address] Kathy Zamudio M.D. Med Refill 12/13/2024 Orders Only Department of Dermatology in [place], [place] [address] [place] [address] Kathy Zamudio M.D. Dermatomyositis (HCC) (Primary Dx) 11/16/2024 Clinical Communication Department of Dermatology in [place], [place] [address] [place] [address] Fiona Hilliard RJackeline. from Last 3 Months Immunizations Immunization Administration Dates Next Due Td, (Adult) Unspecified 04/13/2009 Family History Medical History Relation Name Comments Prostate cancer Father Don Diabetes Mother Bee Hyperlipidemia Mother Bee Hypertension Mother Bee Relation Name Status Comments Father Don Mother Bee Social History Tobacco Use Types Packs/Day Years Used Date Smoking Tobacco: Never Passive Smoke Exposure: Never Smokeless Tobacco: Never Tobacco Cessation:Counseling Given: Not Answered Alcohol Use Standard Drinks/Week Comments Never 0 (1 standard drink = 0.6 oz pur e alcohol) [facility] Utilities Answer Date Recorded In the past 12 months has th e electric, gas, oil, or water company threatened to shut off services in your [...] your living situation today? I have a [facility] place to live 06/11/2023 Education Answer Date Recorded What is the highest level of school you have completed or the highest degree you have received? Some college, no degree 02/18/2022 Comments Unknown Sex and Gender Information Value Date Recorded Sex Assigned at Female 06/11/2023 11:15 AM MED SURG RN Legal Sex Female 8:35 PM MED SURG RN Gender Identity Female 02/18/2022 9:25 AM CDT Sexual Orientation Not on file Last Filed Vital Signs Vital Sign Reading Time Taken Comments Blood Pressure 136/67 05/24/2022 3:04 PM MED SURG RN Pulse 72 05/24/2022 3:04 PM MED SURG RN Temperature 36.3 C (97.3 F) 05/24/2022 3:04 PM MED SURG RN Respiratory Rate 18 05/24/2022 3:04 PM MED SURG RN Oxygen Saturation 94% 03/07/2022 1:24 PM CDT Inhaled Oxygen Concentration - - Weight 78.2 kg (172 lb 6.4 oz) 05/24/2022 11:36 AM MED SURG RN Height 162.4 cm (5' 3.94) 02/18/2022 9:52 AM CD T Body Mass Index 29.65 02/18/2022 9:52 AM CDT Plan of Treatment Health Maintenance Due Date Last Done Comments CT Colonography 1960 Cologuard 1960 FIT 1960 RSV vaccine - (32-36 weeks) or 60+ years (1 - Risk 60-74 years 1-dose series) 2020 Depression Screening (Annual PHQ-2) 05/11/2024 Cervical/Vaginal Cancer Screening 07/31/2024 07/31/2021 Creatinine Level (Kidney Function Test) 08/11/2024 08/12/2023, 07/08/2023, 01/01/2023, Additional history exists Potassium Level 08/11/2024 08/12/2023, 06/12, 01/01/2023, Additional history exists Sodium Level 08/11/2024 08/12/2023, 06/12, 01/01/2023, Additional history exists COVID-19 Vaccine (9 - Moderna risk 2023- season) 2024 02/17/2024, 03/12/2023, 09/02/2022, Additional history exists Influenza Vaccine (#1) 2025 , 01/22/2023, 02/10/2022, Additional history exists Mammogram 04/13/2025 04/13/2024, 08/2023, 04/06/2023, Additional history exists Thyroid Stimulating Hormone (TSH) test for thyroid function 11/28/2025 11/28/2024, 10/13/2024, 09/01/2024, Additional history exists Fasting Glucose for Diabetes Screening 08/26/2027 08/25/2024, 05/27/2024, 02/17/2024, Additional history exists Lipid (Cholesterol) Screening 04/06/2028 04/06/2023, 11/07/2021, 11/05/2020, Additional history exists DTaP,Tdap,and Td Vaccines (4 - Td or Tdap) 03/05/2030 03/05/2020, 07/29/2017, 02/02/2010, Additional history exists Colonoscopy 09/07/2034 09/07/2024, 04/19/2019 Colorectal Cancer Screening 09/07/2034 Zoster Vaccines Completed 01/04/2018, 10/30/2017 Hepatitis B Screening Discontinued 05/06/2022 Pneumococcal vaccine (50+ years) Completed 05/26/2022, 10/03/2009 HPV Vaccines Aged Out No longer eligi ble based on patient's age to complete this topic IPV Vaccines Aged Out No longer eligi ble based on patient's age to complete this topic Medical Devices Implanted Type Area Facilities Plant Engineer Device Identifier Shelf Expiration Date Model / Serial / Lot Hardware E.G. Pins/Screws/R ods Hardware e.g. pins/screws/ rods Left: Ankle Procedures Procedure Name Priority Date/Time Associated Diagnosis Comments HEPATITIS B SURFACE ANTIGEN Routine 05/06/2022 10:57 AM MED SURG RN Dermatomyositis (HCC) COMPREHENSIVE METABOLIC PANEL, S/P Routine 05/06/2022 10:57 AM MED SURG RN Dermatomyositis (HCC) from Last 3 Months or Most Recently Relevant to Health Maintenance Results * Hepatitis B Surface Antigen (05/06/2022 10:57 AM MED SURG RN) HBs Antigen, S Nonreactive Nonreactive 05/06/2022 4:48 PM MED SURG RN AUST Blood (Blood, Venous) 05/06/2022 10:57 AM MED SURG RN 05/06/2022 4:20 PM MED SURG RN us Kathy Zamudio M.D. LAB MICROBIOLOGY - BLOOD ORDER REI Final Result [facility] [address] [place] [address], [place] AUST [facility] [address] [place] [address] * (ABNORMAL) Comprehensive Metabolic Panel (05/06/2022 10:57 AM MED SURG RN) Potassium, P 4.2 3.6 - 5.2 mmol/L 05/06/2022 1:24 PM MED SURG RN OWAT Sodium, P 138 135 - 145 mmol/L 05/06/2022 1:24 PM MED SURG RN OWAT Chloride, P 96(L) 98 - 107 mmol/L 05/06/2022 1:24 PM MED SURG RN OWAT Bicarbonate, P 28 22 - 29 mmol/L 05/06/2022 1:24 PM MED SURG RN OWAT Anion Gap, P 14 7 - 15 05/06/2022 1:24 PM MED SURG RN OWAT BUN (Blood Urea Nitrogen), P 7 6 - 21 mg/dL 05/06/2022 1:24 PM MED SURG RN OWAT Creatinine 0.56(L) 0.59 - 1.04 mg/dL 05/06/2022 1:24 PM MED SURG RN OWAT Estimated GFR (eGFR) >90 >=60 mL/min/BS A 05/06/2022 1:24 PM MED SURG RN OWAT Comment: Estimated GFR calculated using the 2020 CKD_EPI creatinine equation. Calcium, Total, P 9.8 8.8 - 10.2 mg/dL 05/06/2022 1:24 PM MED SURG RN OWAT Glucose, P 186(H) 70 - 140 mg/dL 05/06/2022 1:24 PM MED SURG RN OWAT Protein, Total, P 8.2(H) 6.3 - 7.9 g/dL 05/06/2022 1:24 PM MED SURG RN OWAT Albumin, P 4.2 3.5 - 5.0 g/dL 05/06/2022 1:24 PM MED SURG RN OWAT Aspartate Aminotransferase (AST), P 34 8 - 43 U/L 05/06/2022 1:24 PM MED SURG RN OWAT Alkaline Phosphatase, P 60 35 - 104 U/L 05/06/2022 1:24 PM MED SURG RN OWAT Alanine Aminotransferase (ALT), P 28 7 - 45 U/L 05/06/2022 1:24 PM MED SURG RN OWAT Bilirubin, Total, P 0.5 <=1.2 mg/dL 05/06/2022 1:24 PM MED SURG RN OWAT Blood (Blood, Venous) 05/06/2022 10:57 AM MED SURG RN 05/06/2022 12:53 PM MED SURG RN us Kathy Zamudio M.D. LAB BLOOD ADD-ON Final Result [facility] [address] [place] [address], [place] OWAT [facility] [place] [address] [place] [address] from Last 3 Months or Most Recently Relevant to Health Maintenance Insurance MEDICARE [place] MEDICAID Care Teams Classroom Instructional Aide Relationship Specialty Start Date End Date Elsewhere, Pcp PCP - General Internal Medicine 09/29/22
--- OUTSIDE RECORDS SUMMARY | 2024-12-30 16:46 | XMS_ITS | Encounter Summary ---
Author Organization [facility] Address [address] [place] [address] Care Team Providers Care Gas Torch Brazier Name Role Phone Elsewhere, Pcp Primary Care Provider Unavailabl e Reason for Visit * Reason Comments Med Refill Encounter Details Date Type Department Care Team ([facility] st Contact Info) Description 12/21/2024 Refill Department of Dermatology in [place], [place] [address] [place] [address] Kathy Zamudio M.D. [address] [place] [id number] Med Refill Social History Tobacco Use Types Packs/Day Years Used Date Smoking Tobacco: Never Passive Smoke Exposure: Never Smokeless Tobacco: Never Alcohol Use Standard Drinks/Week Comments Never 0 (1 standard drink = 0.6 oz pur e alcohol) [facility] Utilities Answer Date Recorded In the past 12 months has e [employer], gas, oil, or water [employer] threatened to shut off services in your [...] your living situation today? I have a [facility] place to live 06/11/2023 Education Answer Date Recorded What is the highest level of school you have completed or the highest degree you have received? Some college, no degree 02/18/2022 Comments Unknown Sex and Gender Information Value Date Recorded Sex Assigned at Female 06/11/2023 11:15 AM GLAZE SPRAYER Legal Sex Female 8:35 PM GLAZE SPRAYER Gender Identity Female 02/18/2022 9:25 AM CDT Sexual Orientation Not on file documented as of this encounter Plan of Treatment Not on file documented as of this encounter Visit Diagnoses Not on filedocumented in this encounter Care Teams Gas Torch Brazier Relationship Specialty Start Date End Date Elsewhere, Pcp PCP - General Internal Medicine 09/29/22 documented as of this encounter
--- OUTSIDE RECORDS SUMMARY | 2024-12-30 16:46 | XMS_ITS | Encounter Summary ---
Author Organization [facility] Address [address] [place] [address] Care Team Providers Care Chief Of Pediatric Urology Name Role Phone Elsewhere, Pcp Primary Care Provider Unavailabl e Reason for Referral * Outpatient (Routine) - Authorized Specialty Diagnoses / Procedures Referred By Celia t Referred To Contact Dermatology Diagnoses Dermatomyositis (HCC) Kathy Zamudio M.D. [address] [place] [address] Phone: tel: fax: [facility] Referral ID Status Reason Start Date Expiration Date V isits Requested Visits Authorized [id number] Authorized 12/13/2024 06/14/2026 1 1 Scheduling Instructions I would really like pt to get one of my follow up slots anytime in May- hopefully I am placing this order far enough in advance that one slot sometime during the month can be given to her when the schedules open. Thank you! Encounter Details Date Type Department Care Team (Late st Contact Info) Description 12/13/2024 Orders Only Department of Dermatology in [place], [place] [address] [place] [phone] Kathy Zamudio M.D. [address] [place] [address] [phone] Dermatomyositis (HCC) (Primary Dx) Social History Tobacco Use Types Packs/Day Years Used Date Smoking Tobacco: Never Passive Smoke Exposure: Never Smokeless Tobacco: Never Alcohol Use Standard Drinks/Week Comments Never 0 (1 standard drink = 0.6 oz pur e alcohol) [facility] Utilities Answer Date Recorded In the past 12 months has e electric, gas, oil, or water company [...] your living situation today? [facility] 06/11/2023 Education Answer Date Recorded What is the highest level of school you have completed or the highest degree you have received? Some college, no degree 02/18/2022 Comments Unknown Sex and Gender Information Value Date Recorded Sex Assigned at Female 06/11/2023 11:15 AM SOLE RUFFER Legal Sex Female 8:35 PM SOLE RUFFER Gender Identity Female 02/18/2022 9:25 AM CDT Sexual Orientation Not on file documented as of this encounter Plan of Treatment Scheduled Referrals Name Type Priority Associated Diagnoses Order Schedule Dermatology office visit (clinic) Outpatient Referral Routine Dermatomyositis (HCC) Expected: 05/15/2025 (Approximate), Expires: 03/15/2026 documented as of this encounter Visit Diagnoses Diagnosis Dermatomyositis (HCC)- Primary documented in this encounter Care Teams Chief Of Pediatric Urology Relationship Specialty Start Date End Date Elsewhere, Pcp PCP - General Internal Medicine 09/29/22 documented as of this encounter
--- OUTSIDE RECORDS SUMMARY | 2024-12-30 16:46 | XMS_ITS | Clinical Summary ---
Author Organization [facility] Address [address], [place] [address] Care Team Providers Care Irrigationist Designer Name Role Phone Sarah Nunes MD Primary Care Provider Source Comments You are receiving this document as you are listed as the primary care provider,follow-up provider, or the patient has been referred to you for consultation.This is in compliance with the Medicare and[facility] EHR Incentive Program,which states Providers who transition their patient to another setting of careor provider of care or refers their patient to another provider of care shouldprovide summary care record for each transition of care or referral. [facility] Allerg[facility] Active Allergy Reactions Criticality Noted Date Comments Atenolol Rash 04/29/2016 Ferrous Sulfate Rash 03/24/2019 Methotrexate Other, see comments 04/29/2016 Hepatic dysfunction Simvastatin Other, see comments 04/29/2016 Diarrhea Sulfa Antibiotics Hives High 04/29/2016 Sulfasalazine Hives High 04/29/2016 Medications azelastine (ASTELIN) 0.1 % nasal solution [facility] [employer] into both nostrils two times a day. Active drug not in computer Take by mouth daily. Bifidobacterium infantis 1.5 billion cell Active carbamide peroxide (DEBROX) 6.5 % ear drop solution Place 5 Drops into both ears two times a day. Active aspirin 81 MG tablet Take 81 mg by mouth daily. Active acetaminophen (TYLENOL) 500 MG tablet Take 500-1,000 mg by mouth every 6 hours as needed for Pain. Active cetirizine (ZYRTEC) 10 MG tablet Take 10 mg by mouth daily. Active cholecalciferol (VITAMIND3) 2000 UNITS tablet Take 2,000 Units by mouth daily. Active Desoximetasone 0.05 % OINT Apply topically. 04/09/20 16 Active metFORMIN (GLUCOPHAGE) 500 MG tablet 3 03/04/20 16 Active pravastatin (PRAVACHOL) 80 MG tablet 3 03/04/20 16 Active lisinopril (ZESTRIL) 40 MG tablet 3 02/25/20 16 Active levothyroxine (SYNTHROID) 75 MCG tablet 3 03/04/20 16 Active lancets (EUGENIA MICROLET) TEST THREE TIMES A DAY 11/26/19 14 Active docusate sodium (DOCQLACE) 100 MG capsule Take by mouth. 03/30/20 15 Active Misc. Devices (QUAD CANE) disp one cane- one prong 05/01/20 09 Active omeprazole (PRILOSEC) 20 MG capsule Take 20 mg by mouth daily. Take 1 hour before a meal. Active cephalexin (KEFLEX) 500 MG capsule 1 po bid with food or glass of water 180 Cap 3 02/04/20 17 Active mupirocin (BACTROBAN) 2 % ointment Apply to affected area tid 30 g 1 02/11/20 17 Active cephalexin (KEFLEX) 500 MG capsule 1 po bid with food or glass of water 60 Cap 3 09/10/19 18 Active gabapentin (NEURONTIN) 100 MG capsule 1 capsule AM and Noon, 2-3 capsules in PM. 05/24/19 19 Active dulaglutide (TRULICITY) 1.5 MG/0.5ML injeciton pen Inject 1.5 mg subcutaneously. 01/20/20 18 Active cephalexin (KEFLEX) 500 MG capsule TAKE ONE CAPSULE BY MOUTH TWICE A DAY WITH FOOD OR GLASS OF WATER 60 Capsule 4 05/12/19 20 Active empagliflozin (JARDIANCE) 10 MG tablet Take 10 mg by mouth. 05/18/19 20 Active minocycline (MINOCIN) 100 MG capsule 1 po qd for 1 week, then bid as tolerated. Take with large glass of water. 60 Capsule 3 06/01/19 20 Active triamcinolone acetonide (KENALOG) 0.1 % cream APPLY TOPICALLY TO AFFECTED AREA OF RASHY SKIN TWICE DAILY. 80 g 2 02/16/20 20 Active betamethasone dipropionate (DIPROSONE) 0.05 % lotion APPLY SPARINGLY TWICE A DAY 60 mL 2 06/11/19 22 Active hydroxychloroquine (PLAQUENIL) 200 MG tablet TAKE ONE TABLET BY MOUTH TWICE A DAY 180 Tablet 2 07/11/19 22 Active Apremilast 30 MG TABS Take 30 mg by mouth two times a day. 60 Tablet 2 03/14/20 22 Active tacrolimus (PROTOPIC) 0.1 % ointmentIndication s:Amyopathic dermatomyositis (HRC) APPLY TOPICALLY TWO TIMES A DAY. 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 Social History Tobacco Use Types Packs/Day Years Used Date Smoking Tobacco: Never Smokeless Tobacco: Never Comments Unknown Sex and Gender Information Value Date Recorded Sex Assigned at Not on file Legal Sex Female 10:21 AM CDT Gender Identity Not on file Sexual Orientation Not on file Plan of Treatment Health Maintenance Due Date Last Done Comments Cervical Cancer Screening Due 1960 Colon Cancer Screening Plan Due 1960 Hep C Screening (Preventive Services) 1960 Medicare Annual Wellness Visit 1960 HIV Screening (Preventive Services) 1976 Cholesterol 2005 Pneumococcal Vaccine 50+ Yrs (2 of 2 - PCV) 2010 10/03/2009 Mammogram 01/07/2022 01/07/2021, 12/10, 11/10/2018 COVID-19 Vaccine (3 - season) 2024 07/04/2020, 06/06/2020 Influenza Vaccine (#1) 2025 , 01/27/2020, 01/20/2019, Additional history exists DTaP/Tdap/Td Vaccine (4 - Tdap) 03/05/2030 03/05/2020, 07/29/2017, 02/02/2010, Additional history exists RSV Vaccine (1 - 1-dose 75+ series) 11/26/2035 Zoster/Shingles Vaccine Completed 01/04/2018, 10/30 HepA Vaccine Aged Out No longer eligi ble based on patient's age to complete this topic HepB Vaccine Aged Out No longer eligi ble based on patient's age to complete this topic Hib Vaccine Aged Out No longer eligi ble based on patient's age to complete this topic IPV (Polio) Vaccine Aged Out No longe r eligible based on patient's age to complete this topic MCV4 Vaccine Aged Out No longer eligi ble based on patient's age to complete this topic Meningococcal B Vaccine Aged Out No l onger eligible based on patient's age to complete this topic Insurance [facility] MEDICARE Care Teams Irrigationist Designer Relationship Specialty Start Date End Date [place] [address] PCP - General Urgent Care 04/29/16
[2024-12-30 16:53] VITALS: BP 187/96; PULSE 77; RESP 18; TEMP 36.6; O2SAT 98; BMI 26.8
[2024-12-30 17:08] VITALS: BP 186/86; PULSE 77; RESP 18; TEMP 36.6; O2SAT 98
--- NOTE | 2024-12-30 17:10 | ED.GENADULT ---
HPI - General Adult General Chief complaint: Hypertension Stated complaint: fall Time Seen by Provider: 12/30/24 17:04 History of Present Illness HPI narrative: Mar is a 64 year white female who lives independently. She has a lifeline. She has frequent falls but has not fallen since April. She is reaching over in her kitchen to get a bottle water and fell on the floor injuring her right shoulder she thinks she bumped her left elbow as well. She is able to move her shoulder adequately. Denies any loss conscious denies any neck pain or back pain. She denies any chest pain or breathing problem she states she simply lost balance. She was not wearing shoes. She lives a cast record independently. She feels he is getting along pretty well there. She has an extensive medical history that her chart was reviewed. Related Data Home Medications ?Medication ?Instructions ?Recorded ?Confirmed aspirin 81 mg tablet,delayed 81 mg PO DAILY 06/11/22 12/14/24 release betamethasone dipropionate 0.05 % 1 applic topical Q12H 06/11/22 12/14/24 lotion cetirizine 10 mg tablet 10 mg PO DAILY 06/11/22 12/14/24 empagliflozin 25 mg tablet 25 mg PO DAILY 06/11/22 12/14/24 (Jardiance) ergocalciferol (vitamin D2) 1,250 50,000 unit PO DAILY 06/11/22 12/14/24 mcg (50,000 unit) capsule ferrous gluconate 324 mg (38 mg 324 mg PO DAILY 06/11/22 12/14/24 iron) tablet gabapentin 100 mg capsule 100 mg PO Q12H 06/11/22 12/14/24 hydrocortisone 2.5 % topical 1 applic topical BID 06/11/22 12/14/24 ointment lisinopril 40 mg tablet 40 mg PO DAILY 06/11/22 12/14/24 metformin 500 mg tablet 500 mg PO BID 06/11/22 12/14/24 pravastatin 80 mg tablet 80 mg PO DAILY 06/11/22 12/14/24 sennosides 8.6 mg tablet (senna) 8.6 mg PO BID PRN 06/11/22 12/14/24 tacrolimus 0.1 % topical ointment 1 applic topical BID 06/11/22 12/14/24 triamcinolone acetonide 0.1 % 1 applic topical TID PRN 06/11/22 12/14/24 topical ointment amlodipine 2.5 mg tablet 2.5 mg PO DAILY 10/14/22 12/14/24 glipizide 10 mg tablet, extended 20 mg PO DAILY 07/29/23 12/14/24 release 24 hr famotidine 20 mg tablet 20 mg PO BID 09/29/23 12/14/24 acetaminophen 500 mg tablet 500 mg PO Q6H PRN 10/27/23 12/14/24 diphenhydramine-zinc acetate 2 1 applic topical TID PRN 10/27/23 12/14/24 %-0.1 % topical cream (Benadryl Extra Strength) white petrolatum 41 % topical 1 applic topical BID-TID PRN 10/27/23 12/14/24 ointment (Aquaphor Healing) hydroxychloroquine 200 mg tablet 200 mg PO BID 02/18/24 12/14/24 (Plaquenil) levothyroxine 88 mcg tablet 88 mcg PO QAM 10/04/24 12/14/24 Allergies Allergy/AdvReac Type Severity Reaction Status Date / Time Sulfa (Sulfonamide Allergy Severe Hives Verified 12/14/24 14:39 Antibiotics) sulfasalazine Allergy Severe Hives Verified 12/14/24 14:39 atenolol Allergy Intermediate Rash Verified 12/14/24 14:39 ferrous sulfate Allergy Intermediate Rash Verified 12/14/24 14:39 simvastatin Allergy Mild Diarrhea Verified 12/14/24 14:39 methotrexate Allergy Unknown Verified 12/14/24 14:39 hydrochlorothiazide AdvReac Intermediate Unknown Verified 12/14/24 14:39 Review of Systems Status of ROS: Reports: 6 or more systems reviewed and unremarkable except as noted in History and below [facility] Medical History History of abnormal cervical Pap smear ?Z87.42 - Personal history of other diseases of the female genital tract (ICD-10) History of adenomatous polyp of colon ?Z86.010 - Personal history of colonic polyps (ICD-10) History of vitamin D deficiency ?Z86.39 - Personal history of other endocrine, nutritional and metabolic disease (ICD-10) Surgical History S/P hardware removal (09/01/97) ?Z98.890 - Other specified postprocedural states (ICD-10) Status post left foot surgery (11/15/96) ?Z98.890 - Other specified postprocedural states (ICD-10) History of D&C (10/17/21) ?Z98.890 - Other specified postprocedural states (ICD-10) History of radioactive iodine thyroid ablation ?Z92.3 - Personal history of irradiation (ICD-10) History of ankle surgery ?Z98.890 - Other specified postprocedural states (ICD-10) History of arthroscopy of left knee (10/29/04) ?Z98.890 - Other specified postprocedural states (ICD-10) Family History Brother Coronary artery disease Mother Diabetes High blood pressure Thyroid disease Macular degeneration Social History Narrative: Single, lives at [facility]. Not a Physical activity type: walking How many days of moderate to strenuous exercise, like a brisk walk, did you do in the last 7 days: 4 Smoking Status: Never smoker How often do you have a drink containing alcohol: never AUDIT-C Alcohol total score: 0 Non-prescribed substance use: denies use Do you think of yourself as: straight/heterosexual Gender Identity: female Are you currently sexually active: No service: No Exam Narrative: Exam Narrative: Objective: Vital signs show elevated blood pressure otherwise unremarkable Alert orient x3 HEENT unremarkable neck is supple nontender Back exam unremarkable Right shoulder shows some mild tenderness over her deltoid area on the shoulder but no obvious dislocation no range of motion deficit. The patient has a slight soft tissue swelling on her left olecranon tip on the left elbow. Range of motion is full pronation supination supination full. Chest back abdomen pelvis and lower extremities unremarkable full range of motion nontender. Pelvis is stable. Const: Vital Signs, click to edit/add: Vital Signs - 24 hr 12/30/24 16:53 12/30/24 17:08 Temperature 97.8 F 97.8 F Pulse Rate [Right Pulse Oximeter] 77 77 Respiratory Rate 18 18 Blood Pressure [Ri ght Upper Arm] 187/96 H 186/86 H Pulse Oximetry 98 98 Oxygen Delivery Me thod Room Air Room Air Course Vital Signs Vital signs: Initial Vital Signs Temperature 97.8 F 12/30/24 16:53 Temperature Source Temporal Artery Scan 12/30/24 16:53 Pulse Rate 77 12/30/24 16:53 Respiratory Rate 18 12/30/24 16:53 Blood Pressure 187/96 H 12/30/24 16:53 Blood Pressure Mean 126 H 12/30/24 16:53 Blood Pressure Position Sitting 12/30/24 16:53 Pulse Oximetry 98 12/30/24 16:53 Oxygen Delivery Method Room Air 12/30/24 16:53 Vital Signs Temperature 97.8 F 12/30/24 16:53 Pulse Rate 77 12/30/24 16:53 Respiratory Rate 18 12/30/24 16:53 Blood Pressure 187/96 H 12/30/24 16:53 Pulse Oximetry 98 12/30/24 16:53 Oxygen Delivery Method Room Air 12/30/24 16:53 Temperature 97.8 F 12/30/24 17:08 Pulse Rate 77 12/30/24 17:08 Respiratory Rate 18 12/30/24 17:08 Blood Pressure 186/86 H 12/30/24 17:08 Pulse Oximetry 98 12/30/24 17:08 Oxygen Delivery Method Room Air 12/30/24 17:08 Medical Decision Making MDM Narrative Medical decision making narrative: 64-year-old female with a fall accidentally slipped. She has a history of imbalance. She injured her right shoulder with a contusion, and bumped her left elbow. Will x-ray those areas. If these are negative I think she go home light activity ice to the areas. Recheck with primary care in the next few days. Her fall was a imbalance slipped type fall and not related to a syncopal episode or cardiac issue. Addendum 5:40 p.m.: The patient has a negative shoulder x-ray and left elbow x-ray by my read. She also has lot of diffuse calcification around these areas. I will wait for radiology over-read this. At this point I think she can go home, light activity, Tylenol as needed, ice to the affected areas, recheck as needed. Careful to wear shoes and avoid bending over as fall is always a risk for her : minimize her bending. Discharge Plan Discharge Clinical Impression: Fall, Contusion of right shoulder, Contusion of left elbow Patient Disposition: Home w/ Parent or Adult Condition: Stable Additional Instructions: Ice to the left elbow and the right shoulder 5 minutes to 10 minutes 3 4 times a day for the next several days. Careful to wear shoes so you do not fall or trip. May use Tylenol as needed for discomfort. Recheck with your regular doctor problems or concerns. Activity Level: Light activity Discharge Diet: Regular Prescriptions: No Action hydroxychloroquine [Plaquenil] 200 mg tablet 200 mg PO BID levothyroxine 88 mcg tablet 88 mcg PO QAM aspirin 81 mg tablet,delayed release (DR/EC) 81 mg PO DAILY Patient Comments: TAKE ONE TABLET BY MOUTH ONCE DAILY WITH A MEAL betamethasone dipropionate 0.05 % lotion 1 applic TOPICAL Q12H Patient Comments: APPLY SPARINGLY TWICE A DAY cetirizine 10 mg tablet 10 mg PO DAILY Patient Comments: TAKE ONE TABLET BY MOUTH ONCE DAILY Jardiance 25 mg tablet 25 mg PO DAILY Patient Comments: TAKE ONE TABLET BY MOUTH ONCE DAILY ergocalciferol (vitamin D2) 1,250 mcg (50,000 unit) capsule 50,000 unit PO DAILY ferrous gluconate 324 mg (38 mg iron) tablet 324 mg PO DAILY Patient Comments: TAKE 1 TABLET BY MOUTH ONCE DAILY WITH A MEAL. gabapentin 100 mg capsule 100 mg PO Q12H Patient Comments: TAKE ONE CAPSULE BY MOUTH IN THE MORNING AND AT NOON,2-3 CAPSULES IN THE EVENING hydrocortisone 2.5 % ointment 1 applic TOPICAL BID Patient Comments: APPLY 1 APPLICATION TOPICALLY 2 (TWO) TIMES A DAY. APPLY TO FACE, RASH LOCATED UNDER ARMPITS, GROIN REGION. lisinopril 40 mg tablet 40 mg PO DAILY Patient Comments: TAKE ONE TABLET BY MOUTH ONCE DAILY metformin 500 mg tablet 500 mg PO BID Patient Comments: TAKE TWO TABLETS BY MOUTH TWICE A DAY WITH MEALS pravastatin 80 mg tablet 80 mg PO DAILY Patient Comments: TAKE 1 TABLET (80 MG) BY MOUTH AT BEDTIME. sennosides [senna] 8.6 mg tablet 8.6 mg PO BID PRN Patient Comments: TAKE ONE TABLET BY MOUTH TWICE A DAY NEEDED FOR CONSTIPATION tacrolimus 0.1 % ointment 1 applic TOPICAL BID Patient Comments: APPLY TOPICALLY TWO TIMES A DAY. triamcinolone acetonide 0.1 % ointment 1 applic TOPICAL TID PRN Patient Comments: APPLY 1 APPLICATION TOPICALLY 2 (TWO) TIMES A DAY. APPLY TO AREAS OF RASH. amlodipine 2.5 mg tablet 2.5 mg PO DAILY glipizide 10 mg tablet extended release 24hr 20 mg PO DAILY famotidine 20 mg tablet 20 mg PO BID acetaminophen 500 mg tablet 500 mg PO Q6H PRN Aquaphor Healing 41 % ointment 1 applic topical BID-TID PRN Benadryl Extra Strength 2-0.1 % cream 1 applic topical TID PRN Follow Up/Referrals: Sandi Nunes MD [Primary Care Provider, Family Practice] Stand Alone Forms: [employer] Info Instructions
--- NOTE | 2024-12-30 17:13 | CRLHL7_ITS ---
For Patients: As a result of the Cures Act, medical imaging exams and procedure reports are released immediately into your electronic medical record. You may view this report before your referring provider. If you have questions, please contact your health care provider. INDICATION: Shoulder injury from Fall TECHNIQUE: Shoulder radiograph 3 views right COMPARISON: None FINDINGS: Bone: No acute fractures or aggressive bone lesions are identified. Lateral downsloping of the acromion is present which can predispose this patient to subacromial impingement. Severe diffuse osteopenia is noted. Joint: The glenohumeral joint is unremarkable. The acromioclavicular joint is unremarkable. Soft tissue: Soft tissue calcifications are present surrounding the shoulder girdle. The visualized hemithorax is unremarkable in appearance. No radiopaque foreign bodies are seen. IMPRESSIONS: 1. No acute osseous injuries or abnormalities are noted. 2. Lateral downsloping of the acromion is present which can predispose this patient to subacromial impingement. Dictated by Rajinder Guajardo MD @ 12/30/2024 5:45:18 PM Dictated by: Rajinder Guajardo MD @ 12/30/2024 17:45:23 (Electronically Signed)
--- NOTE | 2024-12-30 17:13 | CRLHL7_ITS ---
For Patients: As a result of the Century Cures Act, medical imaging exams and procedure reports are released immediately into your electronic medical record. You may view this report before your referring provider. If you have questions, please contact your health care provider. INDICATION: Elbow injury from Fall TECHNIQUE: Elbow radiograph 3 views left COMPARISON: None FINDINGS: Bone: No acute fractures or aggressive bone lesions are identified. Joint: The elbow joint is unremarkable. No significant displacement of the anterior or posterior fat pads noted to suggest an effusion. Soft tissue: Scattered soft tissue calcifications are seen surrounding the elbow. No radiopaque foreign bodies are seen. IMPRESSIONS: 1. No acute osseous injuries or abnormalities are noted. 2. Scattered soft tissue calcifications are seen surrounding the elbow. Clinical correlation is recommended to exclude dermatomyositis, polymyositis, or tumoral calcinosis. Dictated by Rajinder Guajardo MD @ 12/30/2024 5:44:44 PM Dictated by: Rajinder Guajardo MD @ 12/30/2024 17:44:48 (Electronically Signed)
== END 2024-12-30 18:07 | disposition home or self-care (01) ==
PROVIDERS: Emergency Provider Family Medicine; PCP Family Medicine
DX: S40.011A Contusion of right shoulder, initial encounter (principal); S50.02XA Contusion of left elbow, initial encounter; W01.10XA Fall on same level from slipping, tripping and stumbling with subsequent striking against unspecified object, initial encounter; Y92.000 Kitchen of unspecified non-institutional (private) residence as the place of occurrence of the external cause
CPT/HCPCS: 73030; 73080; 99284

== ENCOUNTER 2025-03-22 11:00 | Outpatient (RCR) | payer MEDICARE, MEDICAID, SELFPAY ==
[2024-10-04 11:13] VITALS: BP 147/90; PULSE 100; RESP 19; TEMP 37.2; O2SAT 97
[2024-10-04] MEDS: ACETAMINOPHEN 325 MG TABLET 650 MG PO (11:34)
[2024-10-05 11:09] VITALS: BP 151/82; PULSE 96; TEMP 36.4; O2SAT 99
[2024-10-05] MEDS: ACETAMINOPHEN 325 MG TABLET 650 MG PO (11:21)
[2024-10-05 14:45] VITALS: BP 160/84; PULSE 73; RESP 16; TEMP 36.4; O2SAT 99
[2024-11-29 11:13] VITALS: BP 148/82; PULSE 82; TEMP 36.5; O2SAT 98
[2024-11-29] MEDS: ACETAMINOPHEN 325 MG TABLET 650 MG PO (11:36)
[2024-11-30 10:57] VITALS: BP 137/92; PULSE 87; TEMP 36.7; O2SAT 98
[2024-11-30 11:25] VITALS: TEMP 36.6
[2024-11-30] MEDS: ACETAMINOPHEN 325 MG TABLET 650 MG PO (11:25)
[2025-01-24 11:00] VITALS: BP 131/74; PULSE 90; RESP 17; TEMP 36.3; O2SAT 98
[2025-01-24] MEDS: ACETAMINOPHEN 325 MG TABLET 650 MG PO (11:56)
[2025-01-25 10:57] VITALS: BP 140/87; PULSE 93; RESP 18; TEMP 36.6; O2SAT 98
[2025-01-25] MEDS: ACETAMINOPHEN 325 MG TABLET 650 MG PO (11:14)
[2025-03-21 11:33] VITALS: BP 151/92; PULSE 74; RESP 18; TEMP 36.4; O2SAT 98
[2025-03-21] MEDS: ACETAMINOPHEN 325 MG TABLET 650 MG PO (11:38)
[2025-03-22 10:58] VITALS: BP 176/83; PULSE 101; RESP 16; TEMP 36.3; O2SAT 97
[2025-03-22] MEDS: ACETAMINOPHEN 325 MG TABLET 650 MG PO (11:08)
== END 2025-04-02 23:59 | disposition home or self-care (01) ==
LOC: CCIC 11:00
PROVIDERS: PCP Family Medicine; Referring Provider Family Medicine; Visit Provider Clinical Nurse Specialist
DX: M33.10 Other dermatomyositis, organ involvement unspecified (principal)
CPT/HCPCS: 96365; 96366; A9270; J1569

== ENCOUNTER 2025-03-29 11:48 | Emergency (ER) | payer MEDICARE, MEDICAID, SELFPAY ==
--- OUTSIDE RECORDS SUMMARY | 2025-03-29 11:51 | XMS_ITS | Clinical Summary ---
Author Organization [facility] Address [address] [place] [address] Care Team Providers Care Aerospace Medicine Physician Name Role Phone Elsewhere, Pcp Primary Care Provider Unavailabl e Source Comments Patient records contain information from all sites at [facility]. For routine questions regarding patient records, call [phone] during business hours, M-F 8:00 AM - 5:00 PM Central Time. Record requests for emergency care only can be directed to [phone] at any time.[facility] Allergies Active Allergy Reactions Criticality Noted Date [...] cream Apply topically to face twice daily [address] tablet Take 81 mg by mouth. 2 Active azelastine (ASTELIN) 137 mcg/spray (0.1 %) nasal spray 1 spray. Activ e betamethasone dipropionate (DIPROLENE) 0.05 % lotion Apply topically. 6 Active Bifidobacterium infantis 1.5 billion cell capsule Take 1 tablet by mouth. 6 Active blood sugar diagnostic (Contour Next Test Strips) strips Dispense item covered by pt ins. E11.9 NIDDM type II - Test 3 times/day. Reason: High A1C 2 Active carbamide peroxide (DEBROX) 6.5 % otic solution 5 drops. Active cetirizine (ZyrTEC) 10 mg tablet Take 1 tablet by mouth daily. 2 Active cholecalciferol (VITAMIN D3) 1,250 mcg (50,000 Unit) capsule Take 50,000 Units by mouth. 2 Active desoximetasone (TOPICORT) 0.25 % ointment Apply topically. Apply to body twice daily- 3 Active diphenhydrAMINE- zinc acetate (BENADRYL ES) 2 % cream Apply topically. 7 Active docusate sodium (COLACE) 100 mg capsule Take 100 mg by mouth. 9 Active empagliflozin (JARDIANCE) 25 mg tablet Take 25 mg by mouth. 2 Active ferrous gluconate (FERGON) 324 mg (38 mg iron) tablet Take 324 mg by mouth. 2 Active gabapentin (NEURONTIN) 100 mg capsule TAKE ONE CAPSULE BY MOUTH IN THE MORNING AND AT NOON,2-3 CAPSULES IN THE EVENING 9 Active glipiZIDE (GLUCOTROL) 5 mg tablet Take 0.5 tablets by mouth 2 (two) times a day before breakfast and dinner. 1 Active hydroCHLOROthiaz isaac (MICROZIDE) 12.5 mg capsule Take 2 capsules by mouth daily. 1 Active levothyroxine (SYNTHROID, LEVOTHROID) 75 mcg tablet Take 75 mcg by mouth. 6 Active lisinopriL (PRINIVIL,ZESTRI L) 40 mg tablet Take 1 tablet by mouth daily. 9 Active metFORMIN (GLUCOPHAGE) 500 mg tablet Take 1,000 mg by mouth. 1 Active metoprolol tartrate (LOPRESSOR) 50 mg tablet Take 0.5 tablets by mouth 2 (two) times a day. 1 Active omeprazole (PriLOSEC) [address] capsule Take 20 mg by mouth. 2 Active pravastatin (PRAVACHOL) 80 mg tablet Take 80 mg by mouth. 1 Active propylene glycoL (SYSTANE) 0.6 % ophthalmic solution Administer 2 drops into affected eye(s). 6 Active sennosides (SENOKOT) 8.6 mg tablet Take by mouth. 2 Active sodium thiosulfate 25 % - zinc oxide ointmentIndicati ons:Dermatomyosi tis (HCC) Apply topically 2 (two) times a day. Apply to affected of areas of calcium deposits twice a day 60 g 11 2 Active Additional Information Patient not taking.Reported on 05/20/2024 linaGLIPtin (TRADJENTA) 5 mg tablet Take 5 mg by mouth every morning before breakfast. 2 Active TRUEplus Lancets 33 gauge misc 3 (three) times a day. for testing 2 Active ergocalciferol (DRISDOL) 50,000 Unit capsule Take 50,000 Units by mouth. On Thursday and 2 Active amLODIPine (NORVASC) 2.5 mg tablet TAKE 1 TABLET (2.5 MG) BY MOUTH ONCE DAILY. 3 Active betamethasone dipropionate 0.05 % lotionIndication s:Dermatomyositi s (HCC) Apply 1 Application topically 2 (two) times a day. Apply to affected areas of the scalp. Use for up to 2 weeks in a row as needed for flares. 60 mL 3 4 Active NON FORMULARY Automated home blood pressure cuff. Length of need 99 3 Active blood-glucose meter misc as directed 4 Active hydrocortisone (Hytone) 2.5 % creamIndications :Dermatomyositis (HCC) Apply 1 Application topically 2 (two) times a day. Apply to rash of face twice a day as needed for itching. Ok to use with Protopic. Use for 14 days in a row during flares. Repeat as needed. 60 g 3 4 Active triamcinolone (Kenalog) 0.1 % creamIndications :Dermatomyositis (HCC) Apply topically 2 (two) times a day. Apply to rash of body twice a day as needed for itching. Ok to use with Protopic. Use for 14 days in a row during flares. Repeat as needed. 80 g 3 4 Active famotidine (Pepcid) 20 mg tablet Take 20 mg by mouth 2 (two) times a day. 4 Active hydroxychloroqui ne (PlaqueniL) 200 mg tabletIndication s:Dermatomyositi s (HCC) Take 1 tablet (200 mg total) by mouth daily. 180 tablet 4 5 Active tacrolimus (Protopic) 0.1 % ointment APPLY 1 APPLICATION TOPICALLY 2 (TWO) TIMES A DAY. 200 g 11 5 Active Active Problems Problem Noted Date Diagnosed Date Dermatomyositis 04/17/2022 Encounters Date Type Department Care Team Description 03/27/2025 Clinical Communication Department of Dermatology in [place], [place] [address] [place] [address] Kathy Zamudio M.D. 01/24/2025 Clinical Communication Department of Dermatology in [place], [place] [address] [place] [address] Kathy Zamudio M.D. from Last 3 Months Immunizations Immunization Administration Dates Next Due Td, (Adult) Unspecified 04/13/2009 Family History Medical History Relation Name Comments Prostate cancer Father Don Diabetes Mother Bee Hyperlipidemia (high cholesterol) Mother Bee Hypertension Mother Bee Relation Name Status Comments Father Don Mother Bee Social History Tobacco Use Types Packs/Day Years Used Date Smoking Tobacco: Never Passive Smoke Exposure: Never Smokeless Tobacco: Never Tobacco Cessation:Counseling Given: Not Answered Alcohol Use Standard Drinks/Week Comments Never 0 (1 standard drink = 0.6 oz pur e alcohol) [facility] Utilities Answer Date Recorded In the past 12 months has e [employer], gas, oil, or water [employer] threatened to shut off services in your [...] your living situation today? I have a [facility] place to live 06/11/2023 Education Answer Date Recorded What is the highest level of school you have completed or the highest degree you have received? Some college, no degree 02/18/2022 Comments Unknown Sex and Gender Information Value Date Recorded Sex Assigned at Female 06/11/2023 11:15 AM AUTOMATIC FABRIC CUTTER Legal Sex Female 8:35 PM AUTOMATIC FABRIC CUTTER Gender Identity Female 02/18/2022 9:25 AM CDT Sexual Orientation Not on file Last Filed Vital Signs Vital Sign Reading Time Taken Comments Blood Pressure 136/67 05/24/2022 3:04 PM AUTOMATIC FABRIC CUTTER Pulse 72 05/24/2022 3:04 PM AUTOMATIC FABRIC CUTTER Temperature 36.3 C (97.3 F) 05/24/2022 3:04 PM AUTOMATIC FABRIC CUTTER Respiratory Rate 18 05/24/2022 3:04 PM AUTOMATIC FABRIC CUTTER Oxygen Saturation 94% 03/07/2022 1:24 PM CDT Inhaled Oxygen Concentration - - Weight 78.2 kg (172 lb 6.4 oz) 05/24/2022 11:36 AM AUTOMATIC FABRIC CUTTER Height 162.4 cm (5' 3.94) 02/18/2022 9:52 AM CD T Body Mass Index 29.65 02/18/2022 9:52 AM CDT Plan of Treatment Health Maintenance Due Date Last Done Comments CT Colonography 1960 Cologuard 1960 FIT 1960 Depression Screening (Annual PHQ-2) 05/11/2024 Cervical/Vaginal Cancer Screening 07/31/2024 07/31/2021 Creatinine Level (Kidney Function Test) 08/11/2024 08/12/2023, 07/08/2023, 01/01/2023, Additional history exists Sodium Level 08/11/2024 08/12/2023, 06/12, 01/01/2023, Additional history exists COVID-19 Vaccine ( season) 2025 02/17/2024, 03/12/2023, 09/02/2022, Additional history exists Mammogram 04/13/2025 04/13/2024, 1208/2023, 04/06/2023, Additional history exists Potassium Level 08/25/2025 08/25/2024, 040 07/2023, 07/08/2023, Additional history exists Thyroid Stimulating Hormone (TSH) test for thyroid function 11/28/2025 11/28/2024, 10/13/2024, 09/01/2024, Additional history exists Fasting Glucose for Diabetes Screening 01/12/2028 01/11/2025, 08/25/2024, 05/27/2024, Additional history exists Lipid (Cholesterol) Screening 04/06/2028 04/06/2023, 11/07/2021, 11/05/2020, Additional history exists DTaP,Tdap,and Td Vaccines (4 - Td or Tdap) 03/05/2030 03/05/2020, 07/29/2017, 02/02/2010, Additional history exists Colonoscopy 09/07/2034 09/07/2024, 04/19/2019 Colorectal Cancer Screening 09/07/2034 Zoster Vaccines Completed 01/04/2018, 10/30/2017 Hepatitis B Screening Discontinued 05/06/2022 Pneumococcal vaccine (50+ years) Completed 05/26/2022, 10/03/2009 RSV vaccine - (32-36 weeks) or 50+ years Completed 09/02/2024 Influenza Vaccine Completed 02/13/2025, , 01/22/2023, Additional history exists HPV Vaccines Aged Out No longer eligi ble based on patient's age to complete this topic IPV Vaccines Aged Out No longer eligi ble based on patient's age to complete this topic Medical Devices Implanted Type Area Warper Creeler Device Identifier Shelf Expiration Date Model / Serial / Lot Hardware E.G. Pins/Screws/R ods Hardware e.g. pins/screws/ rods Left: Ankle Procedures Procedure Name Priority Date/Time Associated Diagnosis Comments HEPATITIS B SURFACE ANTIGEN Routine 05/06/2022 10:57 AM AUTOMATIC FABRIC CUTTER Dermatomyositis (HCC) COMPREHENSIVE METABOLIC PANEL, S/P Routine 05/06/2022 10:57 AM AUTOMATIC FABRIC CUTTER Dermatomyositis (HCC) from Last 3 Months or Most Recently Relevant to Health Maintenance Results * Hepatitis B Surface Antigen (05/06/2022 10:57 AM AUTOMATIC FABRIC CUTTER) HBs Antigen, S Nonreactive Nonreactive 05/06/2022 4:48 PM AUTOMATIC FABRIC CUTTER AUST Blood (Blood, Venous) 05/06/2022 10:57 AM AUTOMATIC FABRIC CUTTER 05/06/2022 4:20 PM AUTOMATIC FABRIC CUTTER Kathy Zamudio M.D. LAB MICROBIOLOGY - BLOOD ORDER REI Final Result [facility] [address] [place] [address], [facility] [address] [place] [address] * (ABNORMAL) Comprehensive Metabolic Panel (05/06/2022 10:57 AM AUTOMATIC FABRIC CUTTER) Potassium, P 4.2 3.6 - 5.2 mmol/L 05/06/2022 1:24 PM AUTOMATIC FABRIC CUTTER OWAT Sodium, P 138 135 - 145 mmol/L 05/06/2022 1:24 PM AUTOMATIC FABRIC CUTTER OWAT Chloride, P 96(L) 98 - 107 mmol/L 05/06/2022 1:24 PM AUTOMATIC FABRIC CUTTER OWAT Bicarbonate, P 28 22 - 29 mmol/L 05/06/2022 1:24 PM AUTOMATIC FABRIC CUTTER OWAT Anion Gap, P 14 7 - 15 05/06/2022 1:24 PM AUTOMATIC FABRIC CUTTER OWAT BUN (Blood Urea Nitrogen), P 7 6 - 21 mg/dL 05/06/2022 1:24 PM AUTOMATIC FABRIC CUTTER OWAT Creatinine 0.56(L) 0.59 - 1.04 mg/dL 05/06/2022 1:24 PM AUTOMATIC FABRIC CUTTER OWAT Estimated GFR (eGFR) >90 >=60 mL/min/BS A 05/06/2022 1:24 PM AUTOMATIC FABRIC CUTTER OWAT Comment: Estimated GFR calculated using the 2020 CKD_EPI creatinine equation. Calcium, Total, P 9.8 8.8 - 10.2 mg/dL 05/06/2022 1:24 PM AUTOMATIC FABRIC CUTTER OWAT Glucose, P 186(H) 70 - 140 mg/dL 05/06/2022 1:24 PM AUTOMATIC FABRIC CUTTER OWAT Protein, Total, P 8.2(H) 6.3 - 7.9 g/dL 05/06/2022 1:24 PM AUTOMATIC FABRIC CUTTER OWAT Albumin, P 4.2 3.5 - 5.0 g/dL 05/06/2022 1:24 PM AUTOMATIC FABRIC CUTTER OWAT Aspartate Aminotransferase (AST), P 34 8 - 43 U/L 05/06/2022 1:24 PM AUTOMATIC FABRIC CUTTER OWAT Alkaline Phosphatase, P 60 35 - 104 U/L 05/06/2022 1:24 PM AUTOMATIC FABRIC CUTTER OWAT Alanine Aminotransferase (ALT), P 28 7 - 45 U/L 05/06/2022 1:24 PM AUTOMATIC FABRIC CUTTER OWAT Bilirubin, Total, P 0.5 <=1.2 mg/dL 05/06/2022 1:24 PM AUTOMATIC FABRIC CUTTER OWAT Blood (Blood, Venous) 05/06/2022 10:57 AM AUTOMATIC FABRIC CUTTER 05/06/2022 12:53 PM AUTOMATIC FABRIC CUTTER us Kathy Zamudio M.D. LAB BLOOD ADD-ON Final Result [facility] [address] [place] [address], [place] OWAT [facility] [address] [place] [address] from Last 3 Months or Most Recently Relevant to Health Maintenance Insurance MEDICARE [place] MEDICAID Care Teams Aerospace Medicine Physician Relationship Specialty Start Date End Date Elsewhere, Pcp PCP - General Internal Medicine 09/29/22
--- OUTSIDE RECORDS SUMMARY | 2025-03-29 11:51 | XMS_ITS | Encounter Summary ---
Author Organization [facility] Address [address] [place] [address] Care Team Providers Care Systems Integration Advisor Name Role Phone Elsewhere, Pcp Primary Care Provider Unavailabl e Encounter Details Date Type Department Care Team ([facility] st Contact Info) Description 03/27/2025 Clinical Communication Department of Dermatology in [place], [place] [address] [place] [address] Kathy Zamudio M.D. [address] [place] [phone] Social History Tobacco Use Types Packs/Day Years Used Date Smoking Tobacco: Never Passive Smoke Exposure: Never Smokeless Tobacco: Never Alcohol Use Standard Drinks/Week Comments Never 0 (1 standard drink = 0.6 oz pur e alcohol) [facility] Utilities Answer Date Recorded In the past 12 months has [facility] [employer], gas, oil, or water [employer] threatened to shut off services in your [...] your living situation today? I have a [facility] place to live 06/11/2023 Education Answer Date Recorded What is the highest level of school you have completed or the highest degree you have received? Some college, no degree 02/18/2022 Comments Unknown Sex and Gender Information Value Date Recorded Sex Assigned at Female 06/11/2023 11:15 AM PATIENT SAFETY SITTER Legal Sex Female 8:35 PM PATIENT SAFETY SITTER Gender Identity Female 02/18/2022 9:25 AM CDT Sexual Orientation Not on file documented as of this encounter Plan of Treatment Not on file documented as of this encounter Visit Diagnoses Not on filedocumented in this encounter Care Teams Systems Integration Advisor Relationship Specialty Start Date End Date Elsewhere, Pcp PCP - General Internal Medicine 09/29/22 documented as of this encounter
--- OUTSIDE RECORDS SUMMARY | 2025-03-29 11:51 | XMS_ITS | Clinical Summary ---
Author Organization [facility] Address [address] , [address] [place] [address] Phone Care Team Providers Care Outsole Molder Name Role Phone Tani Rosa MD Conditions or Problems Problem Name Problem Code Onset Date Status Entry Date Provider Comment Standard Description Annotate Gait imbalance 628181785 (SNOMED CT) 09/03 Active 09/03 Tani Rosa MD Abnormal gait due to impairment of balance Left median neuropathy 983041517 (SNOMED CT) 05/14 Active 05/14 Tani Rosa MD Median neuropathy Gait imbalance [id number] (SNOMED CT) 01/30 Active 01/30 Tani Rosa MD Abnormal gait due to impairment of balance Dermatomyositi s [id number] (SNOMED CT) 01/30 Active 01/30 Tani Rosa MD Dermatomyositis Weakness 50419891 (SNOMED CT) 01/30 Active 01/30 Tani Rosa MD Asthenia Medications Medication Instructions Start Date Stop Date Generic Name [facility] Provider TRIAMCINOLONE ACETONIDE 0.1 % OINT Apply topically to affected area(s) 3 times daily. triamcinolone (ARISTOCORT) 0.1 % ointment [id number] Tani Rosa MD TACROLIMUS 0.1 % OINT Apply topically to affected area(s) 2 times daily. tacrolimus 0.1% (PROTOPIC) 0.1 % ointment [id number] Tani Rosa MD PRAVASTATIN SODIUM 80 MG TABS Take 1 Tablet (80 mg) by mouth at bedtime. pravastatin (PRAVACHOL) 80 mg tablet [id number] Tani Rosa MD OMEPRAZOLE 20 MG CPDR TAKE ONE CAPSULE BY MOUTH ONCE DAILY BEFORE A MEAL omeprazole (PRILOSEC) 20 mg Delayed-Release capsule [id number] Tani Rosa MD METFORMIN HCL 500 MG TABS Take 2 Tablets (1,000 mg) by mouth in the morning and 2 Tablets (1,000 mg) in the evening. Take with meals. metFORMIN (GLUCOPHAGE) 500 mg tablet [id number] Tani Rosa MD LISINOPRIL 40 MG TABS TAKE ONE TABLET BY MOUTH ONCE DAILY lisinopriL (PRINIVIL; ZESTRIL) 40 mg tablet [id number] Tani Rosa MD LEVOTHYROXINE SODIUM 75 MCG TABS Take 1 Tablet (75 mcg) by mouth once daily. levothyroxine (SYNTHROID) 75 mcg tablet [id number] Tani Rosa MD HYDROXYCHLOROQUINE SULFATE 200 MG TABS Take 1 tablet by mouth 2 times daily. hydroxychloroquine (PLAQUENIL) 200 mg tablet [id number] Tani Rosa MD GABAPENTIN 100 MG CAPS TAKE ONE CAPSULE BY MOUTH IN THE MORNING AND AT NOON,2-3 CAPSULES IN THE EVENING gabapentin (NEURONTIN) 100 mg capsule [id number] Tani Rosa MD ERGOCALCIFEROL 1.25 MG (88111 UT) CAPS TAKE 1 CAPSULE BY MOUTH ONCE EVERY THURSDAY AND THURSDAY ergocalciferol (VITAMIN D2; DRISDOL) 50,000 unit capsule [id number] Tani Rosa MD TRULICITY 4.5 MG/0.5ML SOAJ Inject 4.5 mg subcutaneous once weekly. dulaglutide (Trulicity) 4.5 mg/0.5 mL subcutaneous pen [id number] Tani Rosa MD DOCUSATE SODIUM 100 MG CAPS Take 1 Capsule (100 mg) by mouth 2 times daily. docusate (DOK) 100 mg capsule [id number] Tani Rosa MD DESOXIMETASONE 0.25 % OINT Apply topically. Apply to body twice daily- desoximetasone 0.25% topical (TOPICORT) 0.25 % ointment [id number] Tani Rosa MD D 5000 125 MCG (5000 UT) CAPS TAKE ONE CAPSULE BY MOUTH ONCE DAILY cholecalciferol (VITAMIN D3) 5,000 unit capsule [id number] Tani Rosa MD CETIRIZINE HCL 10 MG TABS TAKE ONE TABLET BY MOUTH ONCE DAILY cetirizine (ZYRTEC) 10 mg tablet [id number] Tani Rosa MD BETAMETHASONE DIPROPIONATE 0.05 % LOTN Apply topically to affected area(s) 2 times daily. betamethasone dipropionate 0.05% (DIPROSONE LOTION 0.05%) lo [id number] Tani Rosa MD ASPIRIN 81 MG TBEC TAKE ONE TABLET BY MOUTH ONCE DAILY WITH A MEAL aspirin (ECOTRIN) 81 mg enteric coated tablet [id number] Tani Rosa MD ALCLOMETASONE DIPROPIONATE 0.05 % CREA Apply topically to face twice daily alclometasone 0.05% (ALCLOVATE) 0.05 % cream [id number] Tani Rosa MD SENNA-TIME 8.6 MG TABS TAKE ONE TABLET BY MOUTH TWICE A DAY NEEDED FOR CONSTIPATION Senna 8.6 mg tablet [id number] Tani Welsh i, MD FERROUS GLUCONATE 324 (37.5 Fe) MG TABS TAKE 1 TABLET BY MOUTH ONCE DAILY WITH A MEAL. Ferrous Gluconate 324 mg (38 mg iron) tablet [id number] Tani Rosa MD DIPHENHYDRAMINE-ZINC ACETATE 2-0.1 % CREA APPLY TOPICALLY TO AFFECTED AREA(S) 3 TIMES DAILY IF NEEDED FOR ITCHING ANTI-ITCH,DIPHENHYD , WITH ZINC cream [id number] Tani Rosa MD Medications Administered No information [...] f ax SMOK STATUS never smoker Toba accountant smoking status Replaced Document: (P) CREAT INE KINASE, TOTAL, VITAMIN B12 B-12 * pg/mL Cobalamin (Vitamin B12) [Mass/volume] in Serum or Plasma CPK 62 U/L 29-143 N Creatine august se [Enzymatic activity/volume] in Serum or Plasma Replaced Document: (P) CREAT INE KINASE, TOTAL, TEST AUTHORIZATION, VITAMIN B12, ... METHYL MALON * nmol/L methylma lonic acid (MMA), serum [id number] GE use only - for [employer] import [...] Procedures Code Procedure Name Date Entry Date [facility]-[id number] Documentation of current medicatio ns ORDERS Patient Instructions ORDERS Follow up telemedicine 01/30 ORDERS Follow up telemedicine 03/14 CPT-15369 Nerve Conduction 13 or more studies 03/14 CPT-86047 EMG with NCS (5+ muscles) - 2 limbs 03/14 ORDERS Other Lab ORDERS Other Test ORDERS EMG left upper ext 2 ORDERS EMG left lower ext 2 ORDERS CK (Creatine Kinase) Total 2 ORDERS Vitamin B12 ORDERS Aldolase [facility]-[id number] Documentation of current medicatio ns ORDERS Patient Instructions Vital Signs No information available. Immunizations No information available. Advance Directives No information available.
--- OUTSIDE RECORDS SUMMARY | 2025-03-29 11:51 | XMS_ITS | Encounter Summary ---
Author Organization [facility] Address [address] [place] [address] Care Team Providers Care State Federal Relations Deputy Director Name Role Phone Elsewhere, Pcp Primary Care Provider Unavailabl e Encounter Details Date Type Department Care Team (Late st Contact Info) Description 01/24/2025 Clinical Communication Department of Dermatology in [place], [place] [address] [place] [address] Kathy Zamudio M.D. [address] [place] [phone] Social History Tobacco Use Types Packs/Day Years Used Date Smoking Tobacco: Never Passive Smoke Exposure: Never Smokeless Tobacco: Never Alcohol Use Standard Drinks/Week Comments Never 0 (1 standard drink = 0.6 oz pur e alcohol) [facility] Utilities Answer Date Recorded In the past 12 months has [facility] [employer], gas, oil, or water [employer] threatened to shut off services in your [...] your living situation today? I have a [facility] place to live 06/11/2023 Education Answer Date Recorded What is the highest level of school you have completed or the highest degree you have received? Some college, no degree 02/18/2022 Comments Unknown Sex and Gender Information Value Date Recorded Sex Assigned at Female 06/11/2023 11:15 AM PAID SEARCH MANAGER Legal Sex Female 8:35 PM PAID SEARCH MANAGER Gender Identity Female 02/18/2022 9:25 AM CDT Sexual Orientation Not on file documented as of this encounter Plan of Treatment Not on file documented as of this encounter Visit Diagnoses Not on filedocumented in this encounter Care Teams State Federal Relations Deputy Director Relationship Specialty Start Date End Date Elsewhere, Pcp PCP - General Internal Medicine 09/29/22 documented as of this encounter
--- OUTSIDE RECORDS SUMMARY | 2025-03-29 11:51 | XMS_ITS | Clinical Summary ---
Author Organization [facility] Address [address] [place] [address] Care Team Providers Care Architectural Draftsperson Name Role Phone Staff, Other Clinical Unavailable Unavailabl e Chelsea Barger MD Unavailable + Sandi Nunes MD Primary Care Provider Allergies Active Allergy Reactions Criticality Noted Date [...] meals. 360 Tablet 3 06/09/19 25 Active glipiZIDE extended-release (GLUCOTROL XL) 10 [...] colonoscopy appointment. 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 Dispense 1 pair 1 Each 08/26/19 25 Active famotidine 20 mg tabletIndications: Chronic GERD TAKE 1 TABLET (20 MG) BY MOUTH TWO TIMES DAILY. 180 Tablet 2 10/03/19 25 Active levothyroxine 100 mcg tabletIndications: Acquired hypothyroidism Take 1 Tablet (100 mcg) by mouth before breakfast. 90 Tablet 3 10/18/19 25 Active azelastine 137 mcg/actuation nasal sprayIndications:A llergic rhinitis, unspecified seasonality, unspecified trigger Inhale 1 [place] into affected nostril(s) two times daily. 30 mL 3 10/25/19 25 Active cholecalciferol (Vitamin D3) (Vitamin D-3) 5,000 unit tab tabletIndications: Vitamin D deficiency Take 1 Tablet (5,000 units) by mouth once daily. 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 Resolved Problems Problem Noted Date [...] Encounters Date Type Department Care Team Description 03/29/2025 Nurse Triage [address] [address] Sandi Nunes MD Weak 03/29/[address] [address] Sandi Nunes MD 03/20/[address] [address] Sandi Nunes MD Questions 02/27/[address] [address] Sandi Nunes MD Questions (med list) 02/21/[address] [address] Lisa Arnett MD Error-please disregard (Not this department/) 02/13/2025 2:15 PM CDT Office Visit [address] [address] Sandi Nunes MD Diabetes (Labs on 01/11: 8.5); Medication Management (Ozempic Nausea, Diarrhea ); Immunization/Injectio n 02/13/2025 Travel 02/06/2025 [address]phone [address] [place] [address] Sandi Nunes MD Results 01/11/2025 11:45 AM CDT Office Visit [facility] [place] [address] [address] Sandi Nunes MD Blood Pressure (Higher BP's readings after her fall 12/31/24); Diabetes (Higher numbers since fall 12/31/24 but have coming down to more normal numbers) 01/11/2025 Telephone [facility] [address] [address] Sandi Nunes MD Error-please disregard 01/11/2025 Travel 01/06/2025 Telephone [facility] [place] [address] [address] Sandi Nunes MD Medication Management (lancets (Accu-Chek Softclix Lancets) /blood sugar diagnostic (Accu-Chek Guide test strips) strip ) 01/03/2025 Refill [facility] [place] [address] [address] Sandi Nunes MD Refill Request (Accu-chek Softclix Lancets, Accu-chek Guide Test Strips) 01/02/2025 Telephone [facility] [place] [address] [address] Sandi Nunes MD Questions (Post ER visit information) 12/30/2024 Orders Only [facility] Scanner 1 scan: (1-Ord) [facility], XR ELBOW LT MIN 3V, 12/30/2024 12/30/2024 Orders Only [facility] Scanner 1 scan: (1-Ord) [facility], XR SHOULDER RIGHT, 12/30/2024 from Last 3 Months Immunizations Immunization Administration Dates Next Due COVID-19 VACCINE SPIKEVAX (M ODERNA 50MCG/0.5ML) 12YO+ PFS 02/17/2024,03/12/2023 COVID-19 vaccine (Moderna 100mcg/0.5mL) PF, MDV 03/28/2021,07/04/2020,06/06/2020 COVID-19 vaccine (Tastemade-Bio NTech 30mcg/0.3mL) 12YO+ BIVALENT PF, MDV 09/02/2022,02/10/2022 COVID-19 vaccine (Pfizer-Bio NTech 30mcg/0.3mL) 12YO+ FABIÁN-SUCROSE PF, MDV 09/23/2021 Hepatitis B (Adult) 02/25/2011,11/12/2010,2008 INFLUENZA, IIV3 PF (AGE >= 6 MO) 02/13/2025,01/2024 Influenza Virus, Unspecified 02/24/2013,03/11/20 12 Influenza, IIV3 (Age 6-35 mos) 02/25/2011 Influenza, IIV3 (Age >=3 years) 03/08/20 13,02/20/2012,02/25/2011,02/12,01/23/2009,03/10/2008,05/01/2004 ,03/07/2003,03/09/2002 Influenza, IIV4 01/22/2023, 2,02/06/2021,01/26,01/20/2019,01/19/2018,01/30/2017 ,02/18/2016,01/09/2015,01/23/2014 Pneumococcal Conj 20-valent (Prevnar 20) 05/26/2022 Pneumococcal Poly,23-Valent (Pneumovax) 10/03/2009 RSV, Recombinant ADJ Reconst ituted (Arexvy 120MCG/0.5mL) 09/02/2024 TD, UNSPECIFIED 04/13/2009 Td (Age >=7 Years) 04/13/2009,06/09/2005 Td, Preservative Free (age >= 7 Years) 9 Tdap 03/05/2020,07/29/2017,02/02/2010 Zoster (Shingrix-RZV, recombinant) 01/04/2018, Family [...] on file Legal Sex Female 5:26 AM CYLINDER DIE MACHINE OPERATOR Gender Identity Not on file Sexual Orientation [...] Sign Reading Time Taken Comments Blood Pressure 132/83 02/13/2025 2:58 PM CDT Pulse 84 02/13/2025 2:58 PM CDT Temperature 36.6 C (97.8 F) 12/09/2024 9:43 AM CDT Respiratory Rate 18 01/28/2023 12:17 PM CDT Oxygen Saturation 98% 02/13/2025 2:58 PM CDT Inhaled Oxygen Concentration - - Weight 70.6 kg (155 lb 9.6 oz) 02/13/2025 2:58 P M CDT Height 159.5 cm (5' 2.8) 04/13/2024 1:03 PM CYLINDER DIE MACHINE OPERATOR Body Mass Index 27.74 04/13/2024 1:03 PM CYLINDER DIE MACHINE OPERATOR Plan of Treatment Upcoming Encounters Date Type Department Care Team (Late st Contact Info) Description 05/02/2025 10:15 AM CYLINDER DIE MACHINE OPERATOR Nurse/Clinic Staff Only [facility] [address] [place] [address] 05/17/2025 10:55 AM CYLINDER DIE MACHINE OPERATOR Office Visit [facility] [address] [place] [address] Sandi Nunes MD [address] [place] [address] Health Maintenance Due Date Last Done Comments Pap test for age 21-65 07/31/2024 , 07/31/2021, 02/25/2016, Additional history exists BMI (ht and wt [...] 10/03/2009 HIV for age 15-65 Completed 04/06/2023 RSV vaccine for adults or Completed 09/02/2024 Influenza Vaccine Completed 02/13/2025, , 01/22/2023, Additional history exists Procedures Procedure Name Priority Date/Time Associated Diagnosis Comments HEMOGLOBIN A1C MONITORING (POCT) Routine 01/11/2025 12:16 PM CDT 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) BASIC METABOLIC PANEL Routine 01/11/2025 11:59 AM CDT 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) SCAN-RADIOLOGY REPORT 12/30/2024 12:00 AM CDT SCAN-RADIOLOGY REPORT 12/30/2024 12:00 AM CDT COLONOSCOPY SCREENING Routine 09/07/2024 12:00 AM CDT History of colon polyps XR MAMMO HEIDY BILAT SCREEN Routine 04/13/2024 11:47 AM CYLINDER DIE MACHINE OPERATOR Visit for screening mammogram LIPID PANEL W REFLEX MEASURED LDL Routine 02/17/2024 10:18 AM CDT 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) ANTI HIV 1/2 Routine 04/06/2023 1:30 PM CYLINDER DIE MACHINE OPERATOR Screening for HIV (human immunodeficiency virus) ANTI HCV Routine 12/02/2021 2:10 PM CDT Amyopathic dermatomyositis (HC) PRIMARY SCHOOL TEACHER LIBRARIAN THIN PREP PAP SCREEN IMAGED Routine 07/31/2021 2:10 PM CDT Routine Papanicolaou smear from Last 3 Months or Most Recently Relevant to Health Maintenance Results * (ABNORMAL) POCT Hemoglobin A1C Monitoring (01/11/2025 12:16 PM CDT) POC HEMOGLOBIN A1C 8.4(H) <6.0 % OF TOTAL HGB 01/11/2025 12:29 PM CDT [facility] Comment: Any point of care results exhibiting inconsistency with the patient's clinical status should be repeated using a different testing method. Blood BLOOD SPECIMEN / Unknown [facility] / Unknown 01/11/2025 12:16 PM CDT 01/11/2025 12:18 PM CDT us Sandi Nunes MD CHEMISTRY Final R esult [facility] [address] [place] [address], [place] [phone] [facility] [address] [place] [address], [place] [phone] * (ABNORMAL) BASIC METABOLIC PANEL (01/11/2025 11:59 AM CDT) [facility] SODIUM 133(L) 135 - 146 mmol/L 01/12/2025 3:25 AM CDT [facility] POTASSIUM 4.5 3.5 - 5.3 mmol/L 01/12/2025 3:25 AM CDT [facility] CARBON DIOXIDE 28 20 - 32 mmol/L 01/12/2025 3:25 AM CDT [facility] GLUCOSE 122(H) 65 - 99 mg/dL 01/12/2025 3:25 AM CDT [facility] Comment: Fasting reference interval For someone without known diabetes, a glucose value between 100 and 125 mg/dL is consistent with prediabetes and should be confirmed with a follow-up test. CALCIUM 9.5 8.6 - 10.4 mg/dL 01/12/2025 3:25 AM CDT [facility] CREATININE 0.64 0.50 - 1.05 mg/dL 01/12/2025 3:25 AM CDT [facility] BUN/CREATININE RATIO SEE NOTE: 6 - 22 (calc) 01/12/2025 3:25 AM CDT [facility] Comment: Not Reported: BUN and Creatinine are within reference range. EGFR 99 > OR = 60 mL/min/1. 73m2 01/12/2025 3:25 AM CDT [facility] UREA NITROGEN (BUN) 15 7 - 25 mg/dL 01/12/2025 3:25 AM CDT [facility] ELECTROLYTE BALANCE 7 7 - 17 mmol/L (calc) 01/12/2025 3:25 AM CDT [facility] CHLORIDE 98 98 - 110 mmol/L 01/12/2025 3:25 AM CDT [facility] Blood BLOOD SPECIMEN / Unknown [facility] / Unknown 01/11/2025 11:59 AM CDT 01/11/2025 11:59 AM CDT Sandi Nunes MD CHEMISTRY Final R esult [facility] [place] [address] [place] [address], * SCAN-RADIOLOGY REPORT (12/30/2024 12:00 AM CDT) Only the most recent of2 resultswithin the time period is included. Anatomical Region Laterality Modality Other us Scanner OTHER Final Result * COLONOSCOPY SCREENING (09/07/2024 12:00 AM CDT) Jerry Quan MD GI PROCEDURE ORD Final Re sult * XR MAMMO HEIDY BILAT SCREEN (04/13/2024 11:47 AM CYLINDER DIE MACHINE OPERATOR) Anatomical Region Laterality Modality BREASTS, Breast Left, Breast Right Bilateral Mammography Impressions 04/17/2024 8:06 AM CYLINDER DIE MACHINE OPERATOR There is no radiographic evidence for malignancy. Recommend annual mammograms. MAMMOGRAM ASSESSMENT: ACR 2 Benign PATIENTS: You will also receive a letter with your examination results in an easy to read format. If you have questions about your results, please contact your referring provider. Narrative 04/17/2024 8:06 AM CYLINDER DIE MACHINE OPERATOR For Patients: As a result of the Cures Act, medical imaging exams and procedure reports are released immediately into your electronic medical record. You may view this report before your referring provider. If you have questions, please contact your health care provider. XR MAMMO HEIDY BILAT SCREEN [[id number]] CLINICAL HISTORY: This is an asymptomatic 63 y.o. patient. INDICATION FOR EXAM: Mammogram Screening. TECHNIQUE: CC & MLO views were obtained. This study was evaluated with the assistance of Computer-Aided Detection. Breast Tomosynthesis was used in interpretation. COMPARISON FILMS: Yes 04/06/23 [facility] FINDINGS: The breasts are heterogeneously dense, which may obscure small masses. No suspicious masses or microcalcifications. There are stable benign calcifications. us Sandi Nunes MD MAMMO Final R esult * (ABNORMAL) LIPID PANEL W REFLEX MEASURED LDL (02/17/2024 10:18 AM CDT) CHOLESTEROL, TOTAL 195 <200 mg/dL [facility] HDL CHOLESTEROL 41(L) > OR = 50 mg/dL [facility] TRIGLYCERIDES 238(H) <150 mg/dL [facility] Comment: If a non-fasting specimen was collected, consider repeat triglyceride testing on a fasting specimen if clinically indicated. Julianne et al. J. of Clin. Lipidol. 2015;9:129-169. LDL-CHOLESTEROL 118(H) mg/dL (calc) [facility] Comment: Reference range: <100 Desirable range <100 mg/dL for primary prevention; <70 mg/dL for patients with CHD or diabetic patients with > or = 2 CHD risk factors. LDL-C is now calculated using the Jerry-Rose calculation, which is a validated novel method providing better accuracy than the Friedewald equation in the estimation of LDL-C. Jerry STARKEY et al. MANUEL. 2013;310(19): 6363-0873 (http://education.Arachnys/faq/WUW107) CHOL/HDLC RATIO 4.8 <5.0 (calc) [facility] NON HDL CHOLESTEROL 154(H) <130 mg/dL (calc) [facility] Comment: For patients with diabetes plus 1 major ASCVD risk factor, treating to a non-HDL-C goal of <100 mg/dL (LDL-C of <70 mg/dL) is considered a therapeutic option. Blood BLOOD SPECIMEN / Unknown 02/17/2024 10:18 AM CDT 02/17/2024 10:19 AM CDT Sandi Nunes MD CHEMISTRY Final R esult Performing Organization Address [facility] Co de Phone Number medineering [facility] [address] [place] [address], [employer] [facility] [address] [place] [address] * ANTI HIV 1/2 [29616.0] (04/06/2023 1:30 PM CYLINDER DIE MACHINE OPERATOR) [facility] HIV-1/HIV-2 SCREEN Non-Reacti ve Non-Reacti ve 04/06/2023 10:53 PM CYLINDER DIE MACHINE OPERATOR [facility] Comment:HIV-1 p24 and HIV-1/ HIV-2 Ab Not Detected. Blood BLOOD SPECIMEN / Unknown Venipuncture / Unknown 04/06/2023 1:30 PM CYLINDER DIE MACHINE OPERATOR 04/06/2023 1:32 PM CYLINDER DIE MACHINE OPERATOR Sandi Nunes MD SEND OUTS Final R esult Performing Organization Address [facility] Co de Phone Number [facility] [address] [place] [address], [place] * ANTI HCV (12/02/2021 2:10 PM CDT) [facility] HEPATITIS C ANTIBODY Non-React charlette Non-React charlette 12/03/2021 5:58 AM CDT [facility] Comment:Antibodies to HCV no t detected; does not exclude the possibility of exposure to HCV. Blood BLOOD SPECIMEN / Unknown Venipuncture / Unknown 12/02/2021 2:10 PM CDT 12/02/2021 2:21 PM CDT Poonam Liang MD SEND OUTS Final Resul t Performing Organization Address City/[facility]/ZIP Co de Phone Number [facility] [address] [place] [address], [place] * (ABNORMAL) PRIMARY SCHOOL TEACHER LIBRARIAN THIN PREP PAP SCREEN IMAGED (07/31/2021 2:10 PM CDT) Case Report Gynecologic Cytology Report Case: [id number] Authorizing Provider: Edda Rogers MD Collected: 07/31/2021 1410 Ordering Location: [facility] Received: 07/31/2021 1420 Clinic First Screen: Zahra Cook Pathologist: Waldemar Hernandez Jr., MD Specimen: PRIMARY SCHOOL TEACHER LIBRARIAN ThinPrep Vial Screening, Cervical 08/20/2021 2:03 PM CDT [facility]/ RESULT ATYPICAL SQUAMOUS CELLS OF UNDETERMINED SIGNIFICANCE (ASCUS)(A) (none) 08/20/2021 2:03 PM CDT [facility] at 1403 CDT SPECIMEN ADEQUACY Satisfactory for evaluation Endocervical component present 08/20/2021 2:03 PM CDT [facility] HPV REQUEST HPV if ASCUS 08/20/2021 2:03 PM CDT [facility] Date of LMP POSTMENOPAUSAL 2 2:03 PM CDT [facility] Last Pap Date 02/25/16 08/20/2021 2:03 PM CDT [facility] Last Pap Result NIL 2 2:03 PM CDT [facility] Abnormal Pap or Spangle Bx in last 5 years No 08/20/2021 2:03 PM CDT [facility] Menstrual Status Postmenopausal 08/20/2021 2:03 PM CDT [facility] Spangle Bx Done Today No 08/20/2021 2:03 PM CDT [facility] Additional Information None given 08/20/2021 2:03 PM CDT [facility] Comment: Cytology is screened at [facility] Boutique Window [facility] - [address], [place] [address] and [facility] - [address], [place] [address] and [facility] - [address], [place] [address] Interpreted at [facility] - [address], [place] [address] Automated Review Successful 08/20/2021 2:03 PM CDT [facility] Comment:Specimen processed s uccessfully by automated assistant field hockey coach device, LoudiePrep Imaging System, [employer] ANCILLARY TESTING PRIMARY SCHOOL TEACHER LIBRARIAN HPV Ordered, Please see separate report 08/20/2021 2:03 PM CDT [facility] Note The pap test is a [...] and malignant lesions. 08/20/2021 2:03 PM CDT [facility] Other (Cervical) Non-Blood / Unknown 07/31/2021 2:10 PM CDT 07/31/2021 2:20 PM CDT us Edda Rogers MD PATHOLOGY/CYTOLOGY Final Re sult [facility] 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 08/16/2024 Insurance MEDICAID MEDICARE [place] ONLY Member Subscriber Plan / Payer (Ef fective 2012-Present) Name:Mar Bustamante Member ID:[id number] Relation to Subscriber:Self Name:Mar Bustamante Subscriber ID:[id number] Payer ID:Not on file Group ID:Not on file Type:Not on file Address: ATTN: CLAIMS [address] MEDICARE PART B HB ONLY MEDICARE PART A HB ONLY Member Subscriber Plan / Payer (Ef fective 2012-Present) Name:Mar Bustamante Member ID:[id number] Relation to Subscriber:Self Name:Mar Bustamante Subscriber ID:[id number] Payer ID:Not on file Group ID:Not on file Type:Not on file Address: ATTN: CLAIMS [address] Advance Directives Documents on File Type Date Recorded Patient Frame Runner Expl anation Healthcare Directive 03/03/2019 12:00 AM 03/03/19 Power of Group Leader Wafer Polishing 04/20/2008 LETTERS OF GUARDIANSHIP AND CONSERVATORSHIP, [facility] 04/20/08 Power of Group Leader Wafer Polishing 01/18/2007 SHORT FORM Care Teams Architectural Draftsperson Relationship Specialty Start Date End Date Sandi Nunes MD [address] [place] [address] PCP - General Family Practice 02/13/25 Staff, Other Clinical . Dermatology 06/17/11 Chelsea Barger MD [address] [place] [address] Dermatology Dermatology 09/22/13
--- OUTSIDE RECORDS SUMMARY | 2025-03-29 11:51 | XMS_ITS | Clinical Summary ---
Author Organization [facility] Address [address], [place] [address] Care Team Providers Care Segmental Paver Installer Name Role Phone Sarah Nunes MD Primary Care Provider Unava ilable Source Comments You are receiving this document as you are listed as the primary care provider,follow-up provider, or the patient has been referred to you for consultation.This is in compliance with the Medicare and[facility] Health[employer] EHR Incentive Program,which states Providers who transition their patient to another setting of careor provider of care or refers their patient to another provider of care shouldprovide summary care record for each transition of care or referral. [facility] Allergies Active Allergy Reactions Criticality Noted Date Comments Atenolol Rash 04/29/2016 Ferrous Sulfate Rash 03/24/2019 Methotrexate Other, see comments 04/29/2016 Hepatic dysfunction Simvastatin Other, see comments 04/29/2016 Diarrhea Sulfa Antibiotics Hives High 04/29/2016 Sulfasalazine Hives High 04/29/2016 Medications azelastine (ASTELIN) 0.1 % nasal solution Place [address] [place] into both nostrils two times a day. [...] 12/10, 11/10/2018 COVID-19 Vaccine (3 - season) 2025 07/04/2020, 06/06/2020 Influenza Vaccine (#1) 2025 , [...] patient's age to complete this topic Insurance [facility] MEDICARE Care Teams Segmental Paver Installer Relationship Specialty Start Date End Date Sarah Nunes MD PCP - General Urgent Care 04/29/16
[2025-03-29 12:00] VITALS: BP 189/101; PULSE 78; RESP 18; TEMP 36.7; O2SAT 98; BMI 24.7
--- NOTE | 2025-03-29 12:01 | ED.GENADULT ---
HPI - General Adult General Time Seen by Provider: 12:02 Date Seen: 03/29/25 Chief complaint: Weakness Stated complaint: hesitation when trying to move, high bp Time Seen by Provider: 03/29/25 11:55 Source: patient Mode of arrival: ambulatory Limitations: no limitations History of Present Illness HPI narrative: Mar is a 64 year old female with cardiomyopathy, chronic kidney disease, anxiety depression, diabetes mellitus type 2, diabetic neuropathy hypertension on amlodipine 2.5 mg and lisinopril 40 mg daily presents emergency department via private car with elevated blood pressure. Patient has had issues with frequent falls in the past, she does see PT weekly over the last year. Two weeks ago when she was at a store she had some weakness in the proximal upper legs were she had to slide down the wall to the floor. She denies any weakness below the knees. She denies any numbness or tingling or paresthesias. She does have some diabetic neuropathy. She feels that she gets this weakness usually before but is preparing meals and standing. Her primary care provider told her to check her blood pressure and blood sugar if these episodes happen. This morning when she was walking to the bathroom she had an episode she was trying to get to the toilet, she was able to sit down. When she got up she tried to walk and she froze. She had to get help from a friend. She took her blood pressure this was around 9:30 a.m. systolics greater than 180, she continued to check it every 10 minutes, until systolics were 151. She then called the nurse line around 10:30 a.m.. She denies any visual changes, lightheadedness or dizziness she denies any headache chest pain or shortness of breath, she has no abdominal pain, nausea vomiting, she has no lower back pain. She denies any pain at this time. Patient did take her blood pressure meds this morning, blood sugar at home was 140. Related Data Home Medications ?Medication ?Instructions ?Recorded ?Confirmed aspirin 81 mg tablet,delayed 81 mg PO DAILY 06/11/22 03/29/25 release betamethasone dipropionate 0.05 % 1 applic topical Q12H 06/11/22 03/29/25 lotion cetirizine 10 mg tablet 10 mg PO DAILY 06/11/22 03/29/25 empagliflozin 25 mg tablet 25 mg PO DAILY 06/11/22 03/29/25 (Jardiance) ergocalciferol (vitamin D2) 1,250 50,000 unit PO DAILY 06/11/22 03/29/25 mcg (50,000 unit) capsule ferrous gluconate 324 mg (38 mg 324 mg PO DAILY 06/11/22 03/29/25 iron) tablet gabapentin 100 mg capsule 100 mg PO Q12H 06/11/22 03/29/25 hydrocortisone 2.5 % topical 1 applic topical BID 06/11/22 03/29/25 ointment lisinopril 40 mg tablet 40 mg PO DAILY 06/11/22 03/29/25 metformin 500 mg tablet 500 mg PO BID 06/11/22 03/29/25 pravastatin 80 mg tablet 80 mg PO DAILY 06/11/22 03/29/25 sennosides 8.6 mg tablet (senna) 8.6 mg PO BID PRN 06/11/22 03/29/25 tacrolimus 0.1 % topical ointment 1 applic topical BID 06/11/22 03/29/25 triamcinolone acetonide 0.1 % 1 applic topical TID PRN 06/11/22 03/29/25 topical ointment amlodipine 2.5 mg tablet 2.5 mg PO DAILY 10/14/22 03/29/25 glipizide 10 mg tablet, extended 20 mg PO DAILY 07/29/23 03/29/25 release 24 hr famotidine 20 mg tablet 20 mg PO BID 09/29/23 03/29/25 acetaminophen 500 mg tablet 500 mg PO Q6H PRN 10/27/23 03/29/25 diphenhydramine-zinc acetate 2 1 applic topical TID PRN 10/27/23 03/29/25 %-0.1 % topical cream (Benadryl Extra Strength) white petrolatum 41 % topical 1 applic topical BID-TID PRN 10/27/23 03/29/25 ointment (Aquaphor Healing) hydroxychloroquine 200 mg tablet 200 mg PO BID 02/18/24 03/29/25 (Plaquenil) levothyroxine 88 mcg tablet 88 mcg PO QAM 10/04/24 03/29/25 azelastine 137 mcg (0.1 %) nasal 1 spray intranasal BID 03/29/25 03/29/25 spray levothyroxine 100 mcg tablet 100 mcg PO QAM 03/29/25 03/29/25 sitagliptin phosphate 50 mg tablet 50 mg PO DAILY 03/29/25 03/29/25 (Daron) Previous Rx's ?Medication ?Instructions ?Recorded amlodipine 5 mg tablet (Norvasc) 5 mg PO DAILY #14 tabs 03/29/25 magnesium 200 mg tablet 200 mg PO DAILY #3 tabs 03/29/25 Allergies Allergy/AdvReac Type Severity Reaction Status Date / Time Sulfa (Sulfonamide Allergy Severe Hives Verified 03/29/25 12:17 Antibiotics) sulfasalazine Allergy Severe Hives Verified 03/29/25 12:17 atenolol Allergy Intermediate Rash Verified 03/29/25 12:17 ferrous sulfate Allergy Intermediate Rash Verified 03/29/25 12:17 simvastatin Allergy Mild Diarrhea Verified 03/29/25 12:17 methotrexate Allergy Unknown Verified 03/29/25 12:17 hydrochlorothiazide AdvReac Intermediate Unknown Verified 03/29/25 12:17 Review of Systems Status of ROS: Reports: 10 or more systems reviewed and unremarkable except as noted in History and below [facility] Medical History History of abnormal cervical Pap smear ?Z87.42 - Personal history of other diseases of the female genital tract (ICD-10) History of adenomatous polyp of colon ?Z86.010 - Personal history of colonic polyps (ICD-10) History of vitamin D deficiency ?Z86.39 - Personal history of other endocrine, nutritional and metabolic disease (ICD-10) Surgical History S/P hardware removal (09/01/97) ?Z98.890 - Other specified postprocedural states (ICD-10) Status post left foot surgery (11/15/96) ?Z98.890 - Other specified postprocedural states (ICD-10) History of D&C (10/17/21) ?Z98.890 - Other specified postprocedural states (ICD-10) History of radioactive iodine thyroid ablation ?Z92.3 - Personal history of irradiation (ICD-10) History of ankle surgery ?Z98.890 - Other specified postprocedural states (ICD-10) History of arthroscopy of left knee (10/29/04) ?Z98.890 - Other specified postprocedural states (ICD-10) Family History Brother Coronary artery disease Mother Diabetes High blood pressure Thyroid disease Macular degeneration Social History Narrative: Single, lives at [facility]. Not a Physical activity type: walking How many days of moderate to strenuous exercise, like a brisk walk, did you do in the last 7 days: 4 Smoking Status: Never smoker How often do you have a drink containing alcohol: never AUDIT-C Alcohol total score: 0 Non-prescribed substance use: denies use Do you think of yourself as: straight/heterosexual Gender Identity: female Are you currently sexually active: No service: No Exam Narrative: Exam Narrative: General: No obvious distress sitting comfortably HEENT: Pupils equal round reactive to light, extraocular muscles intact Neck is supple, full range of motion Heart: Normal sinus rhythm S1-S2 Lungs: Clear to auscultation bilaterally Abdomen: Soft nontender. Bowel sounds present Muscle skeletal: Patient has +5 strength lower extremities bilaterally Equal dorsal and plantar flexion equal patellar reflex, patent dorsal pedis pulses Active full extension legs bilaterally. Active flexion hips bilaterally. Neuro: GCS 15, alert awake and oriented x3 Const: Vital Signs, click to edit/add: Vital Signs - 24 hr 03/29/25 12:00 03/29/25 13:48 Temperature 98.1 F Pulse Rate [Pulse Oximeter] 78 Respiratory Rate 18 Blood Pressure [Ri ght Upper Arm] 189/101 H 180/88 H Pulse Oximetry 98 Oxygen Delivery Me thod Room Air Course Course ED Course: 12:30 PM: aidet performed. Blood pressure 189/101, patient to receive additional dose of her Norvasc 2.5 mg, pulse 78, respiratory rate 18, patient is afebrile, 98% on room air, no signs clinically of any hypertensive emergency or urgency, seems extremity weakness unrelated to her blood pressure, check for any abnormal metabolic abnormalities, including CBC, comprehensive metabolic panel, magnesium, CK level. No worrisome findings on exam, this can be further worked up as an outpatient basis, patient does have a history of stability in the past, she does see PT, ED disposition pending clinical course. Reevaluation(s) Time of Reevaluation #1: 15:00 Reevaluation #1: CBC showed no leukocytosis or anemia, comprehensive metabolic panel showed normal renal function, blood sugar 126, normal LFTs and electrolytes, magnesium slightly low 1.4, she has supplement and magnesium oxide 400 mg capsule, urinalysis showed no signs of infection, CK also WNL, she is given the above care and did well, pressure continued be more elevated, patient was asymptomatic otherwise, she ambulated to and from the bathroom with no recurrence of symptoms, plan would be to increase to 5 mg Norvasc daily, short course of magnesium 200 mg capsules once daily over the next 3 days sent to her pharmacy in [facility], she needs follow up with her primary care provider over the next 5-7 days for blood pressure check and further evaluation of this chronic proximal leg weakness. Reason turned were given. Vital Signs Vital signs: Initial Vital Signs Temperature 98.1 F 03/29/25 12:00 Temperature Source Temporal Artery Scan 03/29/25 12:00 Pulse Rate 78 03/29/25 12:00 Respiratory Rate 18 03/29/25 12:00 Blood Pressure 189/101 H 03/29/25 12:00 Blood Pressure Mean 130 H 03/29/25 12:00 Blood Pressure Position Sitting 03/29/25 12:00 Pulse Oximetry 98 03/29/25 12:00 Oxygen Delivery Method Room Air 03/29/25 12:00 Vital Signs Temperature 98.1 F 03/29/25 12:00 Pulse Rate 78 03/29/25 12:00 Respiratory Rate 18 03/29/25 12:00 Blood Pressure 189/101 H 03/29/25 12:00 Pulse Oximetry 98 03/29/25 12:00 Oxygen Delivery Method Room Air 03/29/25 12:00 Temperature 98.1 F 03/29/25 12:00 Pulse Rate 78 03/29/25 12:00 Respiratory Rate 18 03/29/25 12:00 Blood Pressure 180/88 H 03/29/25 13:48 Pulse Oximetry 98 03/29/25 12:00 Oxygen Delivery Method Room Air 03/29/25 12:00 Medications Administered Medications: Discontinued Medications Generic Name Dose Route Start Last Admin Trade Name Freq PRN Reason Stop Dose Admin Amlodipine Besylate 2.5 mg 03/29/25 12:50 03/29/25 13:22 Amlodipine 5 Mg Tablet PO 03/29/25 12:51 2.5 mg ONCE ONE Administration Magnesium Oxide 400 mg 03/29/25 13:33 03/29/25 13:41 Magnesium Oxide 400 Mg Tablet PO 03/29/25 13:34 400 mg ONCE ONE Administration Medical Decision Making Lab Data Labs: Lab Results 03/29/25 03/29/25 Range/Units 12:21 12:36 WBC 6.09 (4.50-11.00) K/uL RBC 4.52 (4.00-5.20) m/uL Hgb 12.1 (12.0-16.0) gm/dL Hct 35.7 (33.0-51.0) % MCV 79 L (80-100) fL MCH 27 (26-34) pg MCHC 34 (32-36) gm/dL RDW Coeff of Bernardo 14.7 (11.5-15.5) % Plt Count 159 (140-440) K/uL Neut % (Auto) 69.7 (42.0-72.0) % Lymph % (Auto) 22.3 (20-44) % [place] % (Auto) 6.2 (0.0-11.0) % Eos % (Auto) 0.5 (0.0-7.0) % Baso % (Auto) 0.5 (0.0-3.0) % Neut # (Auto) 4.24 (1.7-7.0) K/uL Lymph # (Auto) 1.36 (0.90-2.90) K/uL [place] # (Auto) 0.40 (0.00-0.90) K/UL Eos # (Auto) 0.03 (0.00-0.50) K/uL Baso # (Auto) 0.03 (0.00-0.30) K/uL Abs Immat Gran (auto) 0.05 (0.00-0.30) K/uL Imm/Tot Granulo (auto) 0.8 % Sodium 137 (135-149) mmol/L Potassium 4.1 (3.6-5.1) mmol/L Chloride 98 (96-114) mmol/L Carbon Dioxide 25 (20-32) mmol/L Anion Gap 14 (7-15) mEq/L BUN 13 (7-30) mg/dL Creatinine 0.7 (0.5-1.5) mg/dL Estimated Creat Clear 53.21 Estimated GFR 97 ml/min Glucose 126 H (60-115) mg/dL Calcium 10.0 (8.4-10.6) mg/dL Magnesium 1.4 L (1.5-2.6) mg/dL Total Bilirubin 1.3 (0.1-1.5) mg/dL AST 35 (12-35) U/L ALT 30 (4-35) U/L Alkaline Phosphatase 85 (40-150) U/L Total Creatine Kinase 39 L (41-117) U/L Total Protein 10.9 H (6.0-8.3) g/dL Albumin 4.2 (3.3-5.0) g/dL Urine Color Yellow (Yellow) Urine Appearance Clear (Clear) Urine pH 5.0 (5.0-8.5) Ur Specific [place] <= 1.005 (1.000-1.030) Urine Protein 1+ A (Negative) Urine Glucose (UA) Negative (Negative) Urine Ketones Negative (Negative) Urine Blood 1+ A (Negative) Urine Nitrite Negative (Negative) Urine Bilirubin Negative (Negative) Urine Urobilinogen 0.2 (0.2-1.0) Ur Leukocyte Esterase Negative (Negative) Urine RBC 0-2 (0-2) Urine WBC 0-2 (0-5) Ur Squamous Epith Cells None (None-Few) Urine Bacteria None (None) Discharge Plan Discharge Clinical Impression: Bilateral leg weakness, Elevated blood pressure reading, Hypomagnesemia Patient Disposition: Home, Self-Care Condition: Improved Instructions: Weakness (ED), Hypertension (ED), Hypomagnesemia (ED) Additional Instructions: To increase your Amlodipine(Norvasc) dose to 5 mg daily, until follow-up with primary care provider, continue to take blood pressure checks morning and in evening, magnesium 200 mg capsules 1 daily over the next 3 days, follow-up with primary care provider for blood pressure recheck and further evaluation and workup for the leg weakness, return if any worsening symptoms. Activity Level: No Restrictions Discharge Diet: Regular Prescriptions: New amlodipine [Norvasc] 5 mg tablet 5 mg PO DAILY Qty: 14 2RF magnesium 200 mg tablet 200 mg PO DAILY Qty: 3 0RF No Action hydroxychloroquine [Plaquenil] 200 mg tablet 200 mg PO BID levothyroxine 88 mcg tablet 88 mcg PO QAM aspirin 81 mg tablet,delayed release (DR/EC) 81 mg PO DAILY Patient Comments: TAKE ONE TABLET BY MOUTH ONCE DAILY WITH A MEAL betamethasone dipropionate 0.05 % lotion 1 applic TOPICAL Q12H Patient Comments: APPLY SPARINGLY TWICE A DAY cetirizine 10 mg tablet 10 mg PO DAILY Patient Comments: TAKE ONE TABLET BY MOUTH ONCE DAILY Jardiance 25 mg tablet 25 mg PO DAILY Patient Comments: TAKE ONE TABLET BY MOUTH ONCE DAILY ergocalciferol (vitamin D2) 1,250 mcg (50,000 unit) capsule 50,000 unit PO DAILY ferrous gluconate 324 mg (38 mg iron) tablet 324 mg PO DAILY Patient Comments: TAKE 1 TABLET BY MOUTH ONCE DAILY WITH A MEAL. gabapentin 100 mg capsule 100 mg PO Q12H Patient Comments: TAKE ONE CAPSULE BY MOUTH IN THE MORNING AND AT NOON,2-3 CAPSULES IN THE EVENING hydrocortisone 2.5 % ointment 1 applic TOPICAL BID Patient Comments: APPLY 1 APPLICATION TOPICALLY 2 (TWO) TIMES A DAY. APPLY TO FACE, RASH LOCATED UNDER ARMPITS, GROIN REGION. lisinopril 40 mg tablet 40 mg PO DAILY Patient Comments: TAKE ONE TABLET BY MOUTH ONCE DAILY metformin 500 mg tablet 500 mg PO BID Patient Comments: TAKE TWO TABLETS BY MOUTH TWICE A DAY WITH MEALS pravastatin 80 mg tablet 80 mg PO DAILY Patient Comments: TAKE 1 TABLET (80 MG) BY MOUTH AT BEDTIME. sennosides [senna] 8.6 mg tablet 8.6 mg PO BID PRN Patient Comments: TAKE ONE TABLET BY MOUTH TWICE A DAY NEEDED FOR CONSTIPATION tacrolimus 0.1 % ointment 1 applic TOPICAL BID Patient Comments: APPLY TOPICALLY TWO TIMES A DAY. triamcinolone acetonide 0.1 % ointment 1 applic TOPICAL TID PRN Patient Comments: APPLY 1 APPLICATION TOPICALLY 2 (TWO) TIMES A DAY. APPLY TO AREAS OF RASH. amlodipine 2.5 mg tablet 2.5 mg PO DAILY glipizide 10 mg tablet extended release 24hr 20 mg PO DAILY famotidine 20 mg tablet 20 mg PO BID acetaminophen 500 mg tablet 500 mg PO Q6H PRN Aquaphor Healing 41 % ointment 1 applic topical BID-TID PRN Benadryl Extra Strength 2-0.1 % cream 1 applic topical TID PRN levothyroxine 100 mcg tablet 100 mcg PO QAM azelastine 137 mcg (0.1 %) spray,non-aerosol 1 spray INTRANASAL BID Januvia 50 mg tablet 50 mg PO DAILY Follow Up/Referrals: Sandi Nunes MD [Primary Care Provider, Family Practice] Stand Alone Forms: [employer] Info Instructions
[2025-03-29 12:34] LABS: Appearance Urine Clear (Clear)
[2025-03-29 12:53] LABS: Hematocrit* 35.7 % (33.0-51.0); Hemoglobin* 12.1 gm/dL (12.0-16.0); Immature Granulocytes Abs Auto 0.05 K/uL (0.00-0.30); Immature Granulocytes Pct Auto 0.8 %; Lymphocytes Absolute Auto 1.36 K/uL (0.90-2.90); Mean Corpuscular HGB Conc 34 gm/dL (32-36); Mean Corpuscular Hemoglobin 27 pg (26-34); Mean Corpuscular Volume 79 fL (80-100); RDW Coefficient of Variation % 14.7 % (11.5-15.5); Red Blood Count* 4.52 m/uL (4.00-5.20); White Blood Count* 6.09 K/uL (4.50-11.00)
[2025-03-29 13:01] LABS: Slide Review Reflex No
[2025-03-29 13:06] LABS: Albumin* 4.2 g/dL (3.3-5.0); Chloride* 98 mmol/L (96-114); Potassium* 4.1 mmol/L (3.6-5.1); Sodium* 137 mmol/L (135-149)
[2025-03-29 13:09] LABS: Alanine Aminotransferase* 30 U/L (4-35); Alkaline Phosphatase* 85 U/L (40-150); Anion Gap 14 mEq/L (7-15); Aspartate Amino Transferase* 35 U/L (12-35); Bilirubin Total* 1.3 mg/dL (0.1-1.5); Blood Urea Nitrogen* 13 mg/dL (7-30); Calcium* 10.0 mg/dL (8.4-10.6); Carbon Dioxide* 25 mmol/L (20-32); Creatinine* 0.7 mg/dL (0.5-1.5); Est. Creatinine Clearance* 53.21; Estimated Glomerular Filt Rate 97 ml/min; Glucose* 126 mg/dL (60-115); Total Protein* 10.9 g/dL (6.0-8.3)
--- OUTSIDE RECORDS SUMMARY | 2025-03-29 13:10 | XMS_ITS | Clinical Summary ---
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 Name Role Phone Tani Rosa MD Conditions or Problems Problem Name Problem Code Onset Date Status Entry Date Provider Comment Standard Description Annotate Gait imbalance 184711483 (SNOMED CT) 09/03 Active 09/03 Tani Rosa MD Abnormal gait due to impairment of balance Left median neuropathy 661227159 (SNOMED CT) 05/14 Active 05/14 Tani Rosa MD Median neuropathy Gait imbalance 500099211 (SNOMED CT) 01/30 Active 01/30 Tani Rosa MD Abnormal gait due to impairment of balance Dermatomyositi s 993125878 (SNOMED CT) 01/30 Active 01/30 Tani Rosa MD Dermatomyositis Weakness 04347289 (SNOMED CT) 01/30 Active 01/30 Tani Rosa MD Asthenia Medications Medication Instructions Start Date Stop Date Generic Name [facility] Provider TRIAMCINOLONE ACETONIDE 0.1 % OINT Apply topically to affected area(s) 3 times daily. triamcinolone (ARISTOCORT) 0.1 % ointment [id number] Tani Rosa MD TACROLIMUS 0.1 % OINT Apply topically to affected area(s) 2 times daily. tacrolimus 0.1% (PROTOPIC) 0.1 % ointment [id number] Tani Rosa MD PRAVASTATIN SODIUM 80 MG TABS Take 1 Tablet (80 mg) by mouth at bedtime. pravastatin (PRAVACHOL) 80 mg tablet [id number] Tani Rosa MD OMEPRAZOLE 20 MG CPDR TAKE ONE CAPSULE BY MOUTH ONCE DAILY BEFORE A MEAL omeprazole (PRILOSEC) 20 mg Delayed-Release capsule [id number] Tani Rosa MD METFORMIN HCL 500 MG TABS Take 2 Tablets (1,000 mg) by mouth in the morning and 2 Tablets (1,000 mg) in the evening. Take with meals. metFORMIN (GLUCOPHAGE) 500 mg tablet [id number] Tani Rosa MD LISINOPRIL 40 MG TABS TAKE ONE TABLET BY MOUTH ONCE DAILY lisinopriL (PRINIVIL; ZESTRIL) 40 mg tablet [id number] Tani Rosa MD LEVOTHYROXINE SODIUM 75 MCG TABS Take 1 Tablet (75 mcg) by mouth once daily. levothyroxine (SYNTHROID) 75 mcg tablet [id number] Tani Rosa MD HYDROXYCHLOROQUINE SULFATE 200 MG TABS Take 1 tablet by mouth 2 times daily. hydroxychloroquine (PLAQUENIL) 200 mg tablet [id number] Tani Rosa MD GABAPENTIN 100 MG CAPS TAKE ONE CAPSULE BY MOUTH IN THE MORNING AND AT NOON,2-3 CAPSULES IN THE EVENING gabapentin (NEURONTIN) 100 mg capsule [id number] Tani Rosa MD ERGOCALCIFEROL 1.25 MG (56138 UT) CAPS TAKE 1 CAPSULE BY MOUTH ONCE EVERY THURSDAY AND THURSDAY ergocalciferol (VITAMIN D2; DRISDOL) 50,000 unit capsule [id number] Tani Rosa MD TRULICITY 4.5 MG/0.5ML SOAJ Inject 4.5 mg subcutaneous once weekly. dulaglutide (Trulicity) 4.5 mg/0.5 mL subcutaneous pen [id number] Tani Rosa MD DOCUSATE SODIUM 100 MG CAPS Take 1 Capsule (100 mg) by mouth 2 times daily. docusate (DOK) 100 mg capsule [id number] Tani Rosa MD DESOXIMETASONE 0.25 % OINT Apply topically. Apply to body twice daily- desoximetasone 0.25% topical (TOPICORT) 0.25 % ointment [id number] Tani Rosa MD D 5000 125 MCG (5000 UT) CAPS TAKE ONE CAPSULE BY MOUTH ONCE DAILY cholecalciferol (VITAMIN D3) 5,000 unit capsule [id number] Tani Rosa MD CETIRIZINE HCL 10 MG TABS TAKE ONE TABLET BY MOUTH ONCE DAILY cetirizine (ZYRTEC) 10 mg tablet [id number] Tani Rosa MD BETAMETHASONE DIPROPIONATE 0.05 % LOTN Apply topically to affected area(s) 2 times daily. betamethasone dipropionate 0.05% (DIPROSONE LOTION 0.05%) lo [id number] Tani Rosa MD ASPIRIN 81 MG TBEC TAKE ONE TABLET BY MOUTH ONCE DAILY WITH A MEAL aspirin (ECOTRIN) 81 mg enteric coated tablet [id number] Tani Rosa MD ALCLOMETASONE DIPROPIONATE 0.05 % CREA Apply topically to face twice daily alclometasone 0.05% (ALCLOVATE) 0.05 % cream [id number] Tani Rosa MD SENNA-TIME 8.6 MG TABS TAKE ONE TABLET BY MOUTH TWICE A DAY NEEDED FOR CONSTIPATION Senna 8.6 mg tablet [id number] Tani Welsh i, MD FERROUS GLUCONATE 324 (37.5 Fe) MG TABS TAKE 1 TABLET BY MOUTH ONCE DAILY WITH A MEAL. 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 METHYL MALON * nmol/L methylma lonic acid (MMA), serum [id number] GE use only - for [employer] import [...] Procedures Code Procedure Name Date Entry Date [facility]-[id number] Documentation of current medicatio ns ORDERS Patient Instructions ORDERS Follow up telemedicine 01/30 ORDERS Follow up telemedicine 03/14 CPT-80374 Nerve Conduction 13 or more studies 03/14 CPT-73978 EMG with NCS (5+ muscles) - 2 limbs 03/14 ORDERS Other Lab ORDERS Other Test ORDERS EMG left upper ext 2 ORDERS EMG left lower ext 2 ORDERS CK (Creatine Kinase) Total 2 ORDERS Vitamin B12 ORDERS Aldolase [facility]-[id number] Documentation of current medicatio ns ORDERS Patient Instructions Vital Signs No information available. Immunizations No information available. Advance Directives No information available.
[2025-03-29] MEDS: AMLODIPINE 5 MG TABLET 2.5 MG PO (13:22)
[2025-03-29] MEDS: MAGNESIUM OXIDE 400 MG TABLET PO (13:41)
[2025-03-29 13:45] LABS: Creatine Kinase* 39 U/L (41-117)
[2025-03-29 13:48] VITALS: BP 180/88
== END 2025-03-29 15:15 | disposition home or self-care (01) ==
PROVIDERS: Emergency Provider Student in an Organized Health Care Education/Training Program; PCP Family Medicine
DX: R53.1 Weakness (principal); E83.42 Hypomagnesemia; E11.22 Type 2 diabetes mellitus with diabetic chronic kidney disease; I12.9 Hypertensive chronic kidney disease with stage 1 through stage 4 chronic kidney disease, or unspecified chronic kidney disease; N18.9 Chronic kidney disease, unspecified; Z79.84 Long term (current) use of oral hypoglycemic drugs; Z79.899 Other long term (current) drug therapy
CPT/HCPCS: 36415; 80053; 81001; 81003; 82550; 83735; 85025; 99283; 99284; A9270